=== PATIENT | male | born 1980 | race American Indian/Alaskan Native ===

== ENCOUNTER 2017-03-03 19:08 | Emergency (ER) | payer OTHER ==
[2017-03-03 19:28] VITALS: BP 149/92; PULSE 60; RESP 17; TEMP 98.2; O2SAT 98
--- NOTE | 2017-03-03 19:46 | ED PDOC ---
HPI: General Adult Time Seen by Provider: 03/03/17 19:31 Chief Complaint (Nursing): Medical Clearance Chief Complaint (Provider): itchy skin History Per: Patient History/Exam Limitations: no limitations Onset/Duration Of Symptoms: Other (1 week) Additional Complaint(s): Patient is a 36 y/o male with no significant past medical history presenting to the emergency department for itchy skin ongoing for several weeks. Patient denies any rash, fever or chills. He currently lives in residential. PCP: none Past Medical History Reviewed: Historical Data, Nursing Documentation, Vital Signs Vital Signs: Last Vital Signs Temp 98.2 F 03/03/17 19:25 Pulse 60 03/03/17 19:25 Resp 17 03/03/17 19:25 BP 149/92 H 03/03/17 19:25 Pulse Ox 98 03/03/17 19:53 - Medical History PMH: Depression - Surgical History Surgical History: No Surg Hx - Family History Family History: States: No Known Family Hx - Living Arrangements Living Arrangements: Other (non-domiciled) - Social History Current smoker - smoking cessation education provided: Yes Alcohol: None Drugs: Denies - Home Medications Home Medications: Ambulatory Orders Medication Instructions Recorded DiphenhydrAMINE [Benadryl] 25 mg PO ASDIR #1 packet 03/03/17 - Allergies Allergies/Adverse Reactions: Allergies Allergy/AdvReac Type Severity Reaction Status Date / Time No Known Allergies Allergy Verified 03/03/17 19:28 Review of Systems ROS Statement: Except As Marked, All Systems Reviewed And Found Negative Constitutional: Negative for: Fever, Chills Skin: Positive for: Other (itchy skin). Negative for: Rash Physical Exam - Reviewed Nursing Documentation Reviewed: Yes Vital Signs Reviewed: Yes - Physical Exam Appears: Positive for: Well, Non-toxic, No Acute Distress Head Exam: Positive for: ATRAUMATIC, NORMAL INSPECTION, NORMOCEPHALIC Skin: Positive for: Dry (dry skin patches noted on chest and arms). Negative for: Rash Eye Exam: Positive for: Normal appearance Neck: Positive for: Normal Cardiovascular/Chest: Positive for: Regular Rate, Rhythm Respiratory: Negative for: Accessory Muscle Use, Respiratory Distress Extremity: Positive for: Normal ROM. Negative for: Pedal Edema Neurologic/Psych: Positive for: Alert, Oriented (x3) - ECG O2 Sat by Pulse Oximetry: 98 (RA) Pulse Ox Interpretation: Normal Medical Decision Making Medical Decision Making: Time: 19:48 Initial impression: Patient is a 36 y/o male with itchy skin. Initial plan: Benadryl 25 mg PO Rx benadryl given, patient was referred to clinic. ~ Scribe Attestation: Documented by Ashley Ruiz, acting as a scribe for IAN Small. Provider Scribe Attestation: All medical record entries made by the Scribe were at my direction and personally dictated by me. I have reviewed the chart and agree that the record accurately reflects my personal performance of the history, physical exam, medical decision making, and the department course for this patient. I have also personally directed, reviewed, and agree with the discharge instructions and disposition. Disposition - Clinical Impression Clinical Impression: Pruritus, Dry skin dermatitis - Patient ED Disposition Is Patient to be Admitted: No Counseled Patient/Family Regarding: Diagnosis, Need For Followup - Disposition Referrals: [facility] [Outside] Disposition: Routine/Home Disposition Time: 19:45 Condition: STABLE Additional Instructions: Take rx meds as directed. Follow up with clinic. Prescriptions: DiphenhydrAMINE [Benadryl] 25 mg PO ASDIR #1 packet Instructions: Itchy Skin (ED) Forms: [employer] (Cymro)
== END 2017-03-03 20:05 | disposition home or self-care (01) ==
LOC: H.ER 19:08
DX: L85.3 Xerosis cutis (principal); L29.9 Pruritus, unspecified; F32.9 Major depressive disorder, single episode, unspecified

== ENCOUNTER 2017-03-26 16:33 | Emergency (ER) | payer OTHER ==
[2017-03-26 17:59] VITALS: BMI 20.5
--- NOTE | 2017-03-26 18:04 | ED PDOC ---
Lower Extremity Pain/Injury Time Seen by Provider: 03/26/17 18:01 Chief Complaint (Nursing): Abnormal Skin Integrity Chief Complaint (Provider): bedbug/foot pain History Per: Patient (36 y/o male undomiciled sent by [facility] for evaluation of possible bedbugs. Also notes ongoing foot pain. Notes itching bilateral feet.) Past Medical History Reviewed: Historical Data, Nursing Documentation, Vital Signs - Medical History PMH: Depression Denies: Chronic Kidney Disease - Family History Family History: States: Unknown Family Hx - Home Medications Home Medications: Ambulatory Orders Medication Instructions Recorded DiphenhydrAMINE [Benadryl] 25 mg PO ASDIR #1 packet 03/03/17 Butenafine HCl [Lotrimin Ultra] 0.5 gm TP BID #30 cream..g. 03/26/17 - Allergies Allergies/Adverse Reactions: Allergies Allergy/AdvReac Type Severity Reaction Status Date / Time No Known Allergies Allergy Verified 03/03/17 19:28 Review of Systems ROS Statement: Except As Marked, All Systems Reviewed And Found Negative Physical Exam - Reviewed Nursing Documentation Reviewed: Yes Vital Signs Reviewed: Yes - Physical Exam Appears: Positive for: Well, Non-toxic, No Acute Distress Head Exam: Positive for: ATRAUMATIC, NORMAL INSPECTION, NORMOCEPHALIC Skin: Positive for: Normal Color, Warm, DRY Eye Exam: Positive for: EOMI, Normal appearance, PERRL ENT: Positive for: Normal ENT Inspection Neck: Positive for: Normal, Painless ROM Cardiovascular/Chest: Positive for: Regular Rate, Rhythm Respiratory: Positive for: CNT, Normal Breath Sounds Gastrointestinal/Abdominal: Positive for: Normal Exam, Bowel Sounds, Soft Back: Positive for: Normal Inspection Extremity: Positive for: Normal ROM, Other (scaly/dry skin bilateral feet/ between toes.) Neurologic/Psych: Positive for: Alert, Oriented - Progress ED Course And Treament: Given lotrisone 1% cream here. Patient taken to decon room upon arrival and given new clothes after shower. Disposition - Clinical Impression Clinical Impression: Tinea pedis - Patient ED Disposition Is Patient to be Admitted: No - Disposition Referrals: [facility] [Outside] Disposition: Routine/Home Disposition Time: 18:05 Condition: FAIR Additional Instructions: PATIENT GIVEN SHOWER AND NEW CLOTHES IN EMERGENCY DEPARTMENT Prescriptions: Butenafine HCl [Lotrimin Ultra] 0.5 gm TP BID #30 cream..g. Instructions: Tinea Pedis (ED) Forms: [employer] (Croatian)
[2017-03-26 18:16] VITALS: BP 111/53; PULSE 99; RESP 16; TEMP 98.8; O2SAT 99
== END 2017-03-26 19:17 | disposition home or self-care (01) ==
LOC: H.ER 16:33
DX: B35.3 Tinea pedis (principal); F32.9 Major depressive disorder, single episode, unspecified

== ENCOUNTER 2017-03-27 18:48 | Emergency (ER) | payer OTHER ==
[2017-03-27 18:49] VITALS: BMI 20.5
[2017-03-27 18:59] VITALS: BP 113/64
--- NOTE | 2017-03-27 19:33 | ED PDOC ---
HPI: CCC, URI, Sore Throat Time Seen by Provider: 03/27/17 19:14 Chief Complaint (Nursing): Headache Chief Complaint (Provider): Cough History Per: Patient History/Exam Limitations: no limitations Onset/Duration Of Symptoms: Days (today) Additional Complaint(s): Cough, congestion, runny nose. No dyspnea, weakness, headaches, dizziness. No chest pain. Is homeless and taking no meds. Has chronic leg swelling. No abd pain, nausea, vomit, diarrhea. Past Medical History Reviewed: Nursing Documentation, Vital Signs Vital Signs: Last Vital Signs Temp 102.1 F H 03/27/17 22:47 Pulse 99 H 03/27/17 22:59 Resp 16 03/27/17 22:59 BP 113/64 03/27/17 18:53 Pulse Ox 100 03/27/17 22:59 - Medical History PMH: Depression Denies: Chronic Kidney Disease Other PMH: chronic leg swelling - Surgical History Surgical History: No Surg Hx - Family History Family History: States: Unknown Family Hx - Home Medications Home Medications: Ambulatory Orders Medication Instructions Recorded DiphenhydrAMINE [Benadryl] 25 mg PO ASDIR #1 packet 03/03/17 Butenafine HCl [Lotrimin Ultra] 0.5 gm TP BID #30 cream..g. 03/26/17 - Allergies Allergies/Adverse Reactions: Allergies Allergy/AdvReac Type Severity Reaction Status Date / Time No Known Allergies Allergy Verified 03/03/17 19:28 Review of Systems ROS Statement: Except As Marked, All Systems Reviewed And Found Negative ENT: Positive for: Nose Pain, Nose Discharge, Nose Congestion Respiratory: Positive for: Cough. Negative for: Shortness of Breath, Hemoptysis Gastrointestinal: Negative for: Vomiting Physical Exam - Reviewed Nursing Documentation Reviewed: Yes Vital Signs Reviewed: Yes - Physical Exam Appears: Positive for: Non-toxic, No Acute Distress Head Exam: Positive for: ATRAUMATIC, NORMAL INSPECTION, NORMOCEPHALIC Skin: Positive for: Normal Color, Warm, DRY Eye Exam: Positive for: EOMI, Normal appearance, PERRL ENT: Positive for: Nasal Congestion. Negative for: Pharyngeal Erythema, Tonsillar Exudate Neck: Positive for: Normal, Painless ROM, Supple Cardiovascular/Chest: Positive for: Regular Rate, Rhythm Respiratory: Positive for: CNT, Normal Breath Sounds Gastrointestinal/Abdominal: Positive for: Normal Exam, Bowel Sounds, Soft. Negative for: Tenderness Back: Positive for: Normal Inspection. Negative for: L CVA Tenderness Extremity: Positive for: Normal ROM. Negative for: Tenderness, Pedal Edema Neurologic/Psych: Positive for: Alert, kitchen designer II-XII, Oriented. Negative for: Motor/Sensory Deficits - Laboratory Results Interpretation Of Abn Labs: neg - ECG O2 Sat by Pulse Oximetry: 100 Pulse Ox Interpretation: Normal - Radiology X-Ray: Interpreted by Me, Viewed By Me X-Ray Interpretation: No Acute Disease - Progress ED Course And Treament: 2355: Stable. AAOx3. Tolerated PO. Temp improved. URI. Fu with pcp. Disposition - Clinical Impression Clinical Impression: URI (upper respiratory infection) - Patient ED Disposition Is Patient to be Admitted: No Counseled Patient/Family Regarding: Studies Performed, Diagnosis, Need For Followup - Disposition Referrals: [facility] [Outside] - 03/31/17 Disposition: Routine/Home Disposition Time: 00:16 Condition: STABLE Additional Instructions: Return if not better in 3 days. Instructions: Upper Respiratory Infection (ED) Forms: [employer] (French)
[2017-03-28 05:44] VITALS: PULSE 91; RESP 16; TEMP 99.2; O2SAT 99
--- NOTE | 2017-03-28 10:04 | RAD ---
HISTORY: cough COMPARISON: No prior. FINDINGS: LUNGS: No active pulmonary disease. PLEURA: No significant pleural effusion identified, no pneumothorax apparent. CARDIOVASCULAR: Normal. OSSEOUS STRUCTURES: No significant abnormalities. VISUALIZED UPPER ABDOMEN: Normal. OTHER FINDINGS: None. IMPRESSION: No active disease.
== END 2017-03-28 01:45 | disposition home or self-care (01) ==
LOC: H.ER 18:48
DX: J06.9 Acute upper respiratory infection, unspecified (principal); F32.9 Major depressive disorder, single episode, unspecified; Z59.0 Homelessness

== ENCOUNTER 2017-03-28 16:49 | Emergency (ER) | payer OTHER ==
[2017-03-28 16:50] VITALS: BMI 20.5
[2017-03-28 16:55] VITALS: RESP 20
[2017-03-28] MEDS ORDERED: Sodium Chloride 0.9% 1,000 ML IV STA ×2 (17:29→20:20)
--- NOTE | 2017-03-28 18:01 | ED PDOC ---
HPI: CCC, URI, Sore Throat Time Seen by Provider: 03/28/17 16:57 Chief Complaint (Nursing): Flu-like Symptoms Chief Complaint (Provider): Flu-like Symptoms History Per: Patient History/Exam Limitations: no limitations Onset/Duration Of Symptoms: Days (x2) Current Symptoms Are (Timing): Still Present Additional Complaint(s): 36 year old male who presents to the emergency department with a complaint of fever associated with cough, congestion, headache and generalized bodyache ongoing since yesterday. Denied any chest pain, shortness of breath, bloody cough, nausea, vomiting or diarrhea. Patient was seen in ED yesterday for similar symptoms with negative flu and CXR results. He reported not having money for Tylenol or Motrin as recommended, thus, prompting return to ED. PMD: none provided Past Medical History Reviewed: Historical Data, Nursing Documentation, Vital Signs Vital Signs: Last Vital Signs Temp 100.6 F H 03/28/17 21:34 Pulse 88 03/28/17 22:55 Resp 20 03/28/17 22:55 BP 112/57 L 03/28/17 20:33 Pulse Ox 95 03/28/17 22:55 - Medical History PMH: Depression Denies: Chronic Kidney Disease - Surgical History Surgical History: No Surg Hx - Family History Family History: States: Unknown Family Hx - Social History Current smoker - smoking cessation education provided: No Alcohol: None Drugs: Denies - Home Medications Home Medications: Ambulatory Orders Medication Instructions Recorded DiphenhydrAMINE [Benadryl] 25 mg PO ASDIR #1 packet 03/03/17 Butenafine HCl [Lotrimin Ultra] 0.5 gm TP BID #30 cream..g. 03/26/17 Ibuprofen [Motrin] 600 mg PO Q6 PRN #30 tab 03/28/17 - Allergies Allergies/Adverse Reactions: Allergies Allergy/AdvReac Type Severity Reaction Status Date / Time No Known Allergies Allergy Verified 03/28/17 16:53 Review of Systems ROS Statement: Except As Marked, All Systems Reviewed And Found Negative Constitutional: Positive for: Fever, Other (generalized bodyache) ENT: Positive for: Nose Congestion Cardiovascular: Negative for: Chest Pain Respiratory: Positive for: Cough. Negative for: Shortness of Breath, Hemoptysis Gastrointestinal: Negative for: Nausea, Vomiting, Diarrhea Neurological: Positive for: Headache Physical Exam - Reviewed Nursing Documentation Reviewed: Yes Vital Signs Reviewed: Yes - Physical Exam Appears: Positive for: Well, Non-toxic, No Acute Distress Skin: Positive for: Normal Color. Negative for: Rash Eye Exam: Positive for: Normal appearance, EOMI. Negative for: Periorbital swelling, Periorbital tenderness ENT: Positive for: Normal ENT Inspection, Pharynx Is (within normal limits). Negative for: Pharyngeal Erythema, Tonsillar Exudate Cardiovascular/Chest: Positive for: Regular Rate, Rhythm, Chest Non Tender Respiratory: Positive for: Normal Breath Sounds. Negative for: Decreased Breath Sounds, Respiratory Distress Gastrointestinal/Abdominal: Positive for: Normal Exam, Soft. Negative for: Tenderness Neurologic/Psych: Positive for: Alert, Oriented - Laboratory Results Result Diagrams: 03/28/17 18:20 03/28/17 19:25 - ECG O2 Sat by Pulse Oximetry: 97 (RA) Pulse Ox Interpretation: Normal Medical Decision Making Medical Decision Making: Initial Impression: Flu-like symptoms Initial Plan: * VBG * CMP * CBC * NS 1,00ml IV per 1,000mls/hr * Blood culture * UA 2019 Repeat temp: 102.3 Motrin 800mg PO. CXR: NAD. On re-evaluation, pt. reports feeling much better. Scribe Attestation: Documented by Elenita Person, acting as a scribe for Antonio Howard PA-C. Provider Scribe Attestation: All medical record entries made by the Scribe were at my direction and personally dictated by me. I have reviewed the chart and agree that the record accurately reflects my personal performance of the history, physical exam, medical decision making, and the department course for this patient. I have also personally directed, reviewed, and agree with the discharge instructions and disposition. Disposition - Clinical Impression Clinical Impression: Influenza - Patient ED Disposition Is Patient to be Admitted: No - Disposition Disposition: Routine/Home Disposition Time: 23:20 Condition: STABLE Prescriptions: Ibuprofen [Motrin] 600 mg PO Q6 PRN #30 tab PRN Reason: Fever >100.4 F Instructions: Influenza (ED) Forms: [facility] [employer] (Serbian) Print Language: GREENLANDIC
[2017-03-28 18:38] LABS: BASO # 0.1 K/uL (0.0-0.2); HEMOGLOBIN 11.2 g/dL (12.0-18.0); LYMPH # 0.6 K/uL (1.0-4.3); LYMPH % 8.3 % (20.0-40.0); MEAN CELL VOLUME 88.7 fl (80.0-94.0); MEAN CORPUSCULAR HEMOGLOBIN 28.4 pg (27.0-31.0); MEAN PLATELET VOLUME 8.3 fl (7.2-11.7); MONO # 0.7 K/uL (0.0-0.8); MONO % 9.9 % (0.0-10.0); NEUT # 5.5 K/uL (1.8-7.0); NEUT % 80.8 % (50.0-75.0); NRBC % 0.1 % (0.0-0.0); PLATELET COUNT 171 K/uL (130-400); RBC 3.95 Mil/uL (4.40-5.90); RED CELL DISTRIBUTION WIDTH 15.4 % (11.5-14.5); WHITE BLOOD COUNT 6.8 K/uL (4.8-10.8)
[2017-03-28 18:44] LABS: VENOUS BLOOD GAS BASE EXCESS 3.3 mmol/L (0.0-2.0); VENOUS BLOOD GAS PCO2 41 mmHg (40-60); VENOUS BLOOD GAS PO2 38 mm/Hg (30-55); VENOUS BLOOD PH 7.44 (7.32-7.43)
[2017-03-28 19:48] LABS: ALBUMIN 3.5 g/dL (3.5-5.0); ALT/SGPT 29 U/L (21-72); AST/SGOT 32 U/L (17-59); BLOOD UREA NITROGEN 11 mg/dl (9-20); GFR AFRICAN-AMERICAN > 60; GFR NON-AFRICAN AMERICAN > 60
[2017-03-28 20:04] LABS: BANDS 3 % (0-2); EOSINOPHIL 1 % (0-7); LYMPHOCYTE 7 % (20-50); MONOCYTE 4 % (0-10); NEUTROPHIL 82 % (42-75); PLASMACYTES 1 (0-0); PLATELET ESTIMATE NORMAL (NORMAL); REACTIVE LYMPHOCYTES 2 % (0-0); TOTAL CELLS COUNTED 100
[2017-03-28 20:05] LABS: ANISOCYTOSIS SLIGHT; POIKILOCYTOSIS SLIGHT; ROULEAUX FORMATION SLIGHT; SICKLE CELLS SLIGHT
[2017-03-28 20:06] LABS: HYPOCHROMIC SLIGHT; OVALOCYTES SLIGHT; STOMATOCYTES SLIGHT; TARGET CELLS SLIGHT
[2017-03-28 20:07] LABS: BURR CELLS SLIGHT
[2017-03-28 20:08] LABS: LARGE PLATELETS PRESENT
[2017-03-28 20:34] VITALS: BP 112/57
[2017-03-28 21:43] LABS: SQUAMOUS EPITHIAL 1 /hpf (0-5); URINE BILIRUBIN NEGATIVE (NEGATIVE); URINE BLOOD TRACE (NEGATIVE); URINE CLARITY CLEAR (Clear); URINE COLOR YELLOW (YELLOW); URINE GLUCOSE (UA) NEG (Normal); URINE LEUKOCYTE ESTERASE NEG Leu/uL (Negative); URINE NITRATE NEGATIVE (NEGATIVE); URINE PROTEIN 100 mg/dL (NEGATIVE); URINE UROBILINOGEN 0.2 mg/dL (0.2-1.0)
[2017-03-28 21:44] LABS: GRANULAR CAST 1 /lpf (0-1); URINE AMORPHOUS SEDIMENT FEW /ul (<OCC); URINE BACTERIA RARE (<OCC)
[2017-03-28 21:47] VITALS: TEMP 100.6
[2017-03-28 22:56] VITALS: PULSE 88
[2017-03-29 00:36] VITALS: O2SAT 97
--- NOTE | 2017-03-29 09:58 | RAD ---
PROCEDURE: CHEST RADIOGRAPH, 1 VIEW HISTORY: cough COMPARISON: Comparison chest dated 03/27/2017 FINDINGS: LUNGS: Interstitial markings are slightly increased and coarsened ; rule out sequela of reactive/inflammatory airway disease or viral illness. Mild bibasilar atelectasis. Developing infiltrates could be excluded with followup radiographs. PLEURA: No pneumothorax or pleural fluid seen. CARDIOVASCULAR: Normal. OSSEOUS STRUCTURES: No significant abnormalities. VISUALIZED UPPER ABDOMEN: Normal. OTHER FINDINGS: None. IMPRESSION: Interstitial markings are slightly increased and coarsened ; rule out sequela of reactive/inflammatory airway disease or viral illness. Mild bibasilar atelectasis. Developing infiltrates could be excluded with followup radiographs.
== END 2017-03-28 23:00 | disposition home or self-care (01) ==
LOC: H.ER 16:49
DX: J11.1 Influenza due to unidentified influenza virus with other respiratory manifestations (principal); F32.9 Major depressive disorder, single episode, unspecified
CPT/HCPCS: 71045; 80053; 81003; 82803; 85025; 87040; 96360; 96361; 99284; J7040

== ENCOUNTER 2017-05-02 11:43 | Inpatient (IN) | payer OTHER ==
[2017-05-02] MEDS ORDERED: Sodium Chloride 0.9% 1,000 ML IV STA (12:10)
[2017-05-02] MEDS ORDERED: Piperacillin/Tazobact 3.375 GM in Sodium Chloride 0.9% 100 ML IVPB STA (12:54)
--- NOTE | 2017-05-02 13:04 | ED PDOC ---
HPI: Chest Pain Time Seen by Provider: 05/02/17 12:00 Chief Complaint (Nursing): Chest Pain Chief Complaint (Provider): Chest Pain History Per: Patient History/Exam Limitations: no limitations Onset/Duration Of Symptoms: Days (x3) Current Symptoms Are (Timing): Still Present Additional Complaint(s): 36 year old male with medical history of depression, presents to the emergency department with a complaint of fever associated with chest pain and productive cough with green sputum ongoing for 3 days. He denied any shortness of breath or IV drug use but stated that he currently lives at a homeless long-term. Patient also reported chest pain is worse with sitting up but improved upon lying down. PMD: none provided Past Medical History Reviewed: Historical Data, Nursing Documentation, Vital Signs Vital Signs: Last Vital Signs Temp 102.4 F H 05/02/17 12:58 Pulse 115 H 05/02/17 12:02 Resp 18 05/02/17 12:02 BP 123/76 05/02/17 12:02 Pulse Ox 95 05/02/17 13:18 - Medical History PMH: Depression Denies: Chronic Kidney Disease - Surgical History Surgical History: No Surg Hx - Family History Family History: States: Unknown Family Hx - Social History Current smoker - smoking cessation education provided: Yes Alcohol: None Drugs: Denies - Home Medications Home Medications: Ambulatory Orders Medication Instructions Recorded DiphenhydrAMINE [Benadryl] 25 mg PO ASDIR #1 packet 03/03/17 Butenafine HCl [Lotrimin Ultra] 0.5 gm TP BID #30 cream..g. 03/26/17 Ibuprofen [Motrin] 600 mg PO Q6 PRN #30 tab 03/28/17 - Allergies Allergies/Adverse Reactions: Allergies Allergy/AdvReac Type Severity Reaction Status Date / Time No Known Allergies Allergy Verified 03/28/17 16:53 Review of Systems ROS Statement: Except As Marked, All Systems Reviewed And Found Negative Constitutional: Positive for: Fever Cardiovascular: Positive for: Chest Pain Respiratory: Positive for: Cough, Sputum (green). Negative for: Shortness of Breath Physical Exam - Reviewed Nursing Documentation Reviewed: Yes Vital Signs Reviewed: Yes - Physical Exam Appears: Positive for: No Acute Distress Cardiovascular/Chest: Positive for: Murmur (3/6 on left sternal border), Tachycardia. Negative for: Regular Rate, Rhythm Respiratory: Positive for: Decreased Breath Sounds, Rhonchi (left-sided). Negative for: Normal Breath Sounds, Wheezing, Respiratory Distress Gastrointestinal/Abdominal: Positive for: Normal Exam, Soft. Negative for: Tenderness Extremity: Positive for: Normal ROM (upper/lower), Pedal Edema (2+). Negative for: Calf Tenderness (bilateral) Neurologic/Psych: Positive for: Alert (x3), Oriented. Negative for: Motor/ Sensory Deficits - Laboratory Results Result Diagrams: 05/02/17 13:05 - ECG O2 Sat by Pulse Oximetry: 95 (RA) Pulse Ox Interpretation: Normal Medical Decision Making Medical Decision Making: Initial Impression: Chest pain Initial Plan: * VBG * EKG * CMP * Urine * Urine dipstick * Echo comp w/ m mode/c flow/DOP * CBC * CXR * NS 1,000ml IV per 150mls/hr * Tylenol 650mg PO * Vancomycin inj 250ml IVPB * Zosyn 100ml IVPB * Blood culture * Influenza A B Scribe Attestation: Documented by Elenita Person, acting as a scribe for Hany Brito MD. Provider Scribe Attestation: All medical record entries made by the Scribe were at my direction and personally dictated by me. I have reviewed the chart and agree that the record accurately reflects my personal performance of the history, physical exam, medical decision making, and the department course for this patient. I have also personally directed, reviewed, and agree with the discharge instructions and disposition. Disposition - Clinical Impression Clinical Impression: Pneumonia - Patient ED Disposition Is Patient to be Admitted: Yes - Disposition Disposition Time: 13:21 Condition: GUARDED Forms: [employer] (Romanian) - Pt Status Changed To: Hospital Disposition Of: Inpatient - Admit Certification Admit to Inpatient:: After my assessment, the patient will require hospitalization for at least two midnights. This is because of the severity of symptoms shown, intensity of services needed, and/or the medical risk in this patient being treated as an outpatient. - POA Present On Arrival: None
[2017-05-02 13:11] LABS: BASO # 0.1 K/uL (0.0-0.2); BASO % 0.3 % (0.0-2.0); HEMOGLOBIN 13.4 g/dL (12.0-18.0); LYMPH # 0.9 K/uL (1.0-4.3); LYMPH % 3.3 % (20.0-40.0); MEAN CELL VOLUME 87.9 fl (80.0-94.0); MEAN CORPUSCULAR HEMOGLOBIN 29.1 pg (27.0-31.0); MEAN CORPUSCULAR HGB CONC 33.2 g/dL (33.0-37.0); MEAN PLATELET VOLUME 7.7 fl (7.2-11.7); MONO # 2.5 K/uL (0.0-0.8); MONO % 8.6 % (0.0-10.0); NEUT % 87.8 % (50.0-75.0); PLATELET COUNT 357 K/uL (130-400); RBC 4.59 Mil/uL (4.40-5.90); RED CELL DISTRIBUTION WIDTH 15.1 % (11.5-14.5); WHITE BLOOD COUNT 28.5 K/uL (4.8-10.8)
[2017-05-02 13:26] LABS: ALB/GLOB RATIO 0.9 (1.0-2.1); ALBUMIN 3.6 g/dL (3.5-5.0); ALT/SGPT 25 U/L (21-72); AST/SGOT 24 U/L (17-59); BLOOD UREA NITROGEN 17 mg/dl (9-20); CALCIUM 9.2 mg/dL (8.4-10.2); GFR AFRICAN-AMERICAN > 60; GFR NON-AFRICAN AMERICAN > 60
[2017-05-02 13:38] LABS: VENOUS BLOOD GAS BASE EXCESS 4.5 mmol/L (0.0-2.0); VENOUS BLOOD GAS PCO2 54 mmHg (40-60); VENOUS BLOOD GAS PO2 21 mm/Hg (30-55); VENOUS BLOOD PH 7.37 (7.32-7.43)
[2017-05-02] MEDS ORDERED: Piperacillin/Tazobact 3.375 gm Inj IVPB ONE (13:47)
[2017-05-02 13:57] LABS: ANISOCYTOSIS SLIGHT; BANDS 1 % (0-2); LYMPHOCYTE 7 % (20-50); MONOCYTE 9 % (0-10); NEUTROPHIL 83 % (42-75); PLATELET ESTIMATE NORMAL (NORMAL); TOTAL CELLS COUNTED 100
[2017-05-02] MEDS ORDERED: Permethrin 5% CREAM TOP ONE (14:07)
--- NOTE | 2017-05-02 14:08 | CP.PCM.HP ---
History of Present Illness - History of Present Illness History of Present Illness: 36 yo male with history of Depression came in complaining of fever associated with left sided chest pain and cough productive with green sputum since 3 days ago. Patient uncooperative to further interview and did not want to be bothered because of feeling weak and sick. Present on Admission - Present on Admission Any Indicators Present on Admission: No History of DVT/PE: No History of Uncontrolled Diabetes: No Urinary Catheter: No Decubitus Ulcer Present: No Review of Systems - Review of Systems All systems: reviewed and no additional remarkable complaints except (aside from those mentioned above, 14 point system review were negative by me) Past Patient History - Infectious Disease Hx of Infectious Diseases: None - Past Social History Smoking Status: Heavy Smoker > 10 Cigarettes Daily Alcohol: None Drugs: Denies Home Situation {Lives}: Homeless - CARDIAC Hx Cardiac Disorders: No - PULMONARY Hx Respiratory Disorders: No - NEUROLOGICAL Hx Neurological Disorder: No - HEENT Hx HEENT Problems: No - RENAL Hx Chronic Kidney Disease: No - ENDOCRINE/METABOLIC Hx Endocrine Disorders: No - HEMATOLOGICAL/ONCOLOGICAL Hx Blood Disorders: No - INTEGUMENTARY Hx Dermatological Problems: No - MUSCULOSKELETAL/RHEUMATOLOGICAL Hx Musculoskeletal Disorders: No - GASTROINTESTINAL Hx Gastrointestinal Disorders: No - GENITOURINARY/GYNECOLOGICAL Hx Genitourinary Disorders: No - PSYCHIATRIC Hx Depression: Yes - SURGICAL HISTORY Hx Surgeries: No - ANESTHESIA Hx Anesthesia: No Meds Allergies/Adverse Reactions: Allergies Allergy/AdvReac Type Severity Reaction Status Date / Time No Known Allergies Allergy Verified 03/28/17 16:53 Physical Exam - Constitutional Appears: No Acute Distress - Head Exam Head Exam: ATRAUMATIC - Eye Exam Eye Exam: absent: Scleral icterus - ENT Exam ENT Exam: Mucous Membranes Moist - Neck Exam Neck exam: Negative for: Meningismus - Respiratory Exam Respiratory Exam: Decreased Breath Sounds, Rhonchi (left lung field). absent: Wheezes, Respiratory Distress - Cardiovascular Exam Cardiovascular Exam: Tachycardia, Systolic Murmur (left parasternal border) - GI/Abdominal Exam GI & Abdominal Exam: Soft. absent: Tenderness - Rectal Exam Rectal Exam: Deferred - Extremities Exam Extremities exam: Positive for: calf tenderness, pedal edema (2+ bilateral pedal edema) - Back Exam Back exam: absent: tenderness - Neurological Exam Neurological exam: Alert - Psychiatric Exam Psychiatric exam: Normal Affect - Skin Skin Exam: Dry, Intact Results - Vital Signs Recent Vital Signs: Last Vital Signs Temp 102.4 F H 05/02/17 12:58 Pulse 115 H 05/02/17 12:02 Resp 18 05/02/17 12:02 BP 123/76 05/02/17 12:02 Pulse Ox 95 05/02/17 13:21 - Labs Result Diagrams: 05/02/17 13:05 05/02/17 13:05 Labs: Laboratory Results - last 24 hr 05/02/17 05/02/17 05/02/17 13:05 13:05 13:05 WBC 28.5 H D RBC 4.59 Hgb 13.4 D Hct 40.3 MCV 87.9 MCH 29.1 MCHC 33.2 RDW 15.1 H Plt Count 357 D MPV 7.7 Neut % (Auto) 87.8 H Lymph % (Auto) 3.3 L Tompkins % (Auto) 8.6 Eos % (Auto) 0.0 Baso % (Auto) 0.3 Neut # (Auto) 25.0 H Lymph # (Auto) 0.9 L Tompkins # (Auto) 2.5 H Eos # (Auto) 0.0 Baso # (Auto) 0.1 Neutrophils % (Manual) 83 H Band Neutrophils % 1 Lymphocytes % (Manual) 7 L Monocytes % (Manual) 9 Platelet Estimate Normal Anisocytosis (manual) Slight pO2 VBG pH VBG pCO2 VBG HCO3 VBG Total CO2 VBG O2 Sat (Calc) VBG Base Excess VBG Potassium Glucose Lactate FiO2 Sodium 139 Potassium 4.8 Chloride 97 L Carbon Dioxide 27 Anion Gap 20 BUN 17 Creatinine 1.0 Est GFR ( Amer) > 60 Est GFR (Non-Af Amer) > 60 Random Glucose 101 Calcium 9.2 Total Bilirubin 0.7 AST 24 ALT 25 Alkaline Phosphatase 71 Total Protein 7.8 Albumin 3.6 Globulin 4.2 H Albumin/Globulin Ratio 0.9 L Venous Blood Potassium Influenza Typ A,B (EIA) Negative for flu a/b 05/02/17 13:30 WBC RBC Hgb Hct MCV MCH MCHC RDW Plt Count MPV Neut % (Auto) Lymph % (Auto) Tompkins % (Auto) Eos % (Auto) Baso % (Auto) Neut # (Auto) Lymph # (Auto) Tompkins # (Auto) Eos # (Auto) Baso # (Auto) Neutrophils % (Manual) Band Neutrophils % Lymphocytes % (Manual) Monocytes % (Manual) Platelet Estimate Anisocytosis (manual) pO2 21 L VBG pH 7.37 VBG pCO2 54 VBG HCO3 26.7 VBG Total CO2 32.9 H VBG O2 Sat (Calc) 34.5 L VBG Base Excess 4.5 H VBG Potassium 4.6 Glucose 110 Lactate 1.5 FiO2 21.0 Sodium 134.0 Potassium Chloride 101.0 Carbon Dioxide Anion Gap BUN Creatinine Est GFR ( Amer) Est GFR (Non-Af Amer) Random Glucose Calcium Total Bilirubin AST ALT Alkaline Phosphatase Total Protein Albumin Globulin Albumin/Globulin Ratio Venous Blood Potassium 4.6 Influenza Typ A,B (EIA) Assessment & Plan - Assessment and Plan (Free Text) Assessment: 36 yo male with history of Depression came in complaining of fever associated with left sided chest pain and cough productive with green sputum since 3 days ago. Patient uncooperative to further interview and did not want to be bothered because of feeling weak and sick. 1. Sepsis panculture Zosyn 3.375 gm IV q 6hrs Vanco 1gm q 12hrs Vanco trough before 4th dose IV hydration with NSS 150cc/hr Tylenol 650mg PO q 4hrs prn for fever 2. LLL Pneumonia O2 supplement 2LPM via NC PRN on IV Zosyn and Vanco 3. Pedal Edema venous doppler
--- NOTE | 2017-05-02 14:14 | RAD ---
HISTORY: cough COMPARISON: Frontal chest radiograph 03/28/2017. FINDINGS: LUNGS: Infiltrate the left base is not excluded. None is seen the right chest. PLEURA: A moderate size left pleural effusion is suspected with underlying left by basilar airspace disease not excluded. No pneumothorax bilaterally or right pleural effusion identified. CARDIOVASCULAR: Likely stable but partially obscured by left pleural effusion/infiltrate. OSSEOUS STRUCTURES: No significant abnormalities. VISUALIZED UPPER ABDOMEN: Normal. OTHER FINDINGS: None. IMPRESSION: A moderate left pleural effusions identified with underlying left basilar airspace disease not excluded. Right chest appears clear. No pneumothorax bilaterally.
[2017-05-02] MEDS ORDERED: Sodium Chloride 3% for Inhalation 4 ML VIAL.NEB IH PRN (14:37)
--- NOTE | 2017-05-02 16:10 | US ---
PROCEDURE: Bilateral lower extremity venous duplex Doppler. HISTORY: r/o DVT COMPARISON: None available. TECHNIQUE: Bilateral common femoral, superficial femoral, popliteal and posterior tibial veins were evaluated. Flow was assessed with color Doppler, compressibility, assessment of phasic flow and augmentation response. FINDINGS: COMMON FEMORAL VEIN: Right CFV: Unremarkable. Left CFV: Unremarkable. SUPERFICIAL FEMORAL VEIN: Right SFV: Unremarkable. Left SFV: Unremarkable. POPLITEAL VEIN: Right Popliteal: Unremarkable. Left Popliteal: Unremarkable. POSTERIOR TIBIAL VEIN: Right PTV: Unremarkable. Left PTV: Unremarkable. OTHER FINDINGS: None. IMPRESSION: No evidence of deep venous thrombosis in the right or left lower extremity. .
[2017-05-02 21:31] LABS: URINE BILIRUBIN NEGATIVE (NEGATIVE); URINE BLOOD MODERATE (NEGATIVE); URINE CLARITY SLIGHTY-CLOUDY (Clear); URINE COLOR YELLOW (YELLOW); URINE GLUCOSE (UA) NEG (Normal); URINE LEUKOCYTE ESTERASE NEG Leu/uL (Negative); URINE PROTEIN 100 mg/dL (NEGATIVE)
[2017-05-02 21:35] LABS: SQUAMOUS EPITHIAL 2 /hpf (0-5)
[2017-05-03] MEDS: Piperacillin/Tazobact 3.375 GM in Sodium Chloride 0.9% 100 ML IVPB SCH ×6 (04:48→22:15)
[2017-05-03 07:35] LABS: BASO # 0.1 K/uL (0.0-0.2); BASO % 0.2 % (0.0-2.0); EOS % 0.1 % (0.0-4.0); HEMOGLOBIN 12.4 g/dL (12.0-18.0); LYMPH # 0.6 K/uL (1.0-4.3); LYMPH % 1.9 % (20.0-40.0); MEAN CELL VOLUME 88.1 fl (80.0-94.0); MEAN CORPUSCULAR HEMOGLOBIN 29.2 pg (27.0-31.0); MEAN CORPUSCULAR HGB CONC 33.2 g/dL (33.0-37.0); MEAN PLATELET VOLUME 7.8 fl (7.2-11.7); MONO # 1.7 K/uL (0.0-0.8); MONO % 5.6 % (0.0-10.0); NEUT # 27.3 K/uL (1.8-7.0); NEUT % 92.2 % (50.0-75.0); PLATELET COUNT 363 K/uL (130-400); RBC 4.23 Mil/uL (4.40-5.90); WHITE BLOOD COUNT 29.6 K/uL (4.8-10.8)
[2017-05-03 08:02] LABS: BLOOD UREA NITROGEN 13 mg/dl (9-20); CALCIUM 8.7 mg/dL (8.4-10.2); GFR AFRICAN-AMERICAN > 60; GFR NON-AFRICAN AMERICAN > 60
[2017-05-03] MEDS ORDERED: Pneumococcal 23-Valent Vaccine IM ONE (09:00)
[2017-05-03] MEDS ORDERED: Influenza Vaccine 18yr & older 0.5 ML/45 MCG SYR IM ONE (09:00)
[2017-05-03] MEDS ORDERED: Iodixanol 320 MG/ML 100 ML BOTTLE IV ONE (09:06)
[2017-05-03] MEDS ORDERED: Sodium Chloride 0.9% 100 ML ONE (09:06)
[2017-05-03] MEDS: Pantoprazole 40 mg EC Tab PO SCH (10:26)
--- NOTE | 2017-05-03 12:34 | CT ---
PROCEDURE: CT Chest with contrast (Pulmonary Angiogram) HISTORY: r/o PE , Right pleural effusion COMPARISON: Chest x-ray 05/02/2017 TECHNIQUE: Axial computed tomography images were obtained of the chest in the pulmonary arterial phase of enhancement. Coronal and sagittal reformatted images were created and reviewed. Intravenous contrast dose: 98 cc Omnipaque Radiation dose: Total exam DLP = 316 mGy-cm. This CT exam was performed using one or more of the following dose reduction techniques: Automated exposure control, adjustment of the mA and/or kV according to patient size, and/or use of iterative reconstruction technique. FINDINGS: PULMONARY ARTERIES: Evaluation of portions of the peripheral pulmonary arteries are limited by motion. No appreciable filling defect within the pulmonary arteries is identified to suggest pulmonary embolism. AORTA: No acute findings. No thoracic aortic aneurysm. LUNGS: There is evidence of moderate left lower lobe compressive atelectasis secondary to a large left pleural effusion. Additional mild compressive atelectasis is seen in the left upper lobe. There is some mild haziness in crowding of the residual aerated left lung. Small right pleural effusion and very mild subsegmental atelectasis posteriorly at the right lung base adjacent to the fluid is noted. There may be some mild interlobular thickening identified in the right lung although no other infiltrates are seen. Evaluation of the bronchi reveals evidence of some mild layering debris within the distal posterior trachea but also extending into the left main bronchus. There is moderate narrowing or filling of the proximal left lower lobe bronchus, once again with moderate left lower lobe atelectasis. Milder amount of debris and narrowing of portions of the left upper lobe bronchi is also identified. PLEURAL SPACES: Large left pleural effusion. Small right effusion. No pneumothorax seen. Along the lateral aspect of the inferior pericardium on the left is some induration of the pericardial fat. HEART: Heart is not enlarged. Small amount of pericardial fluid inferiorly is not excluded. There is however evidence of some fluid tracking into portions of the mediastinum. LYMPH NODES: There appear to be some mildly enlarged prevascular lymph nodes. There is also a small amount of tissue seen in the anterior mediastinal region which may reflect some residual thymus or mild thymic hyperplasia but without rounded borders to suggest mass. Small amount of subcarinal adenopathy and small amounts of hilar adenopathy are also suspected. BONES, CHEST WALL: No appreciable chest wall mass is identified. Minimal gynecomastia is identified. No rib fractures are appreciated. No thoracic spine fracture is identified. Sternum is unremarkable. OTHER FINDINGS: Images of the upper abdomen reveal some mild induration of the left anterior upper abdominal fat which may be related to the left pleural effusion. IMPRESSION: No CT scan evidence of pulmonary embolism although exam is limited by motion and some compression of the vessels. Very large left pleural effusion with extension into the sub pulmonic regional on the left. Moderate atelectasis of the left lower lobe with bronchial filling or compression of the left lower lobe bronchus. Milder areas of narrowing and filling of the left upper lobe bronchi. Fluid does not appear to have significant increased density or hemorrhagic products although empyema cannot fully be excluded. Sampling of the fluid may prove helpful for further evaluation. Bronchoscopy is suggested for further evaluation to assess for mass or other filling defect in the left lower lobe bronchi. There appear to be a number of mildly enlarged prevascular lymph nodes and some other areas of mild mediastinal or hilar adenopathy. This is nonspecific but probably reactive and related to the process within the left lung. There is some nonspecific induration of the left anterior pericardial fat. Very small pericardial effusion is not excluded. Very small right effusion with subsegmental atelectasis but no infiltrate. Case was placed into the PA review folder and critical red folder as per department protocol.
--- NOTE | 2017-05-03 12:46 | CP.PCM.PN ---
Subjective - Date & Time of Evaluation Date of Evaluation: 05/03/17 Time of Evaluation: 12:30 - Subjective Subjective: Patient seen and examined bedside. Complains of left hemithorax pain. With sputum production , febrile Tmax 102.2 WBC 29 K No acute issues overnight with flat affect Objective - Vital Signs/Intake and Output Vital Signs (last 24 hours): Temp Pulse Resp BP Pulse Ox 98.5 F 108 H 18 111/73 100 05/03/17 08:33 05/03/17 08:33 05/03/17 08:33 05/03/17 08:33 05/03/17 08:33 - Medications Medications: Current Medications Acetaminophen (Tylenol 325mg Tab) 650 mg PO Q6 PRN PRN Reason: Fever >100.4 F Last Admin: 05/03/17 04:54 Dose: 650 mg Enoxaparin Sodium (Lovenox) 40 mg SC DAILY DERRICK PRN Reason: Protocol Piperacillin Sod/Tazobactam (Sod 3.375 gm/ Sodium Chloride) 100 mls @ 100 mls/ hr IVPB Q6 DERRICK PRN Reason: Protocol Last Admin: 05/03/17 10:27 Dose: 100 mls/hr Vancomycin HCl 1 gm/ Sodium (Chloride) 250 mls @ 166.667 mls/hr IVPB Q12 DERRICK PRN Reason: Protocol Last Admin: 05/03/17 00:03 Dose: 166.667 mls/hr Pantoprazole Sodium (Protonix Ec Tab) 40 mg PO DAILY DERRICK Last Admin: 05/03/17 10:26 Dose: 40 mg - Labs Labs: 05/03/17 05:59 05/03/17 05:59 - Constitutional Appears: Non-toxic, No Acute Distress, Other (flat affect) - Head Exam Head Exam: ATRAUMATIC, NORMAL INSPECTION, NORMOCEPHALIC - Eye Exam Eye Exam: EOMI, Normal appearance, PERRL Pupil Exam: NORMAL ACCOMODATION - ENT Exam ENT Exam: Mucous Membranes Moist, Normal Exam - Neck Exam Neck Exam: Full ROM, Normal Inspection - Respiratory Exam Respiratory Exam: Decreased Breath Sounds (to left hemithorax). absent: Accessory Muscle Use, Rhonchi, Wheezes, Respiratory Distress - Cardiovascular Exam Cardiovascular Exam: REGULAR RHYTHM, RRR, +S1, +S2. absent: JVD - GI/Abdominal Exam GI & Abdominal Exam: Soft, Normal Bowel Sounds. absent: Distended, Guarding, Tenderness, Rebound - Rectal Exam Rectal Exam: Deferred - Extremities Exam Extremities Exam: Full ROM, Normal Capillary Refill, Normal Inspection. absent : Pedal Edema - Back Exam Back Exam: NORMAL INSPECTION - Neurological Exam Neurological Exam: Alert, Awake, CN II-XII Intact, Oriented x3 - Psychiatric Exam Psychiatric exam: Flat Affect - Skin Skin Exam: Dry, Intact, Warm Assessment and Plan - Assessment and Plan (Free Text) Assessment: 36 yo male with history of Depression came in complaining of fever associated with left sided chest pain and cough productive with green sputum since 3 days ago. Patient not a very good historian , with flat affect. Complains of pain. CXR showed left pleural effusion. He was febrile with Tmax 102.2 , WBc 28 K, tachycardic Patient admitted for sepsis secondary to pneumonia and large pleural effusion. 1. Sepsis most likely secondary to CAP Continue vanco and zosyn IV Follow up cultures lidoderm patch to left hemithorax for pain control o2 via NC 2. LLL Pneumonia with large pleural effusion Ct chest orderd today showed large pleural effusion , atelectasis Will continue IV vanco and zosyn Will order IR thoracethesis for fluid analysis pulmonary consuklt with Dr. Parker O2 supplement 2LPM via NC 3. Pedal Edema venous doppler negative for DVT 4.Depression not SI 5. DVt prophylaxis Lovenox
[2017-05-03 12:50] LABS: ANISOCYTOSIS SLIGHT; LYMPHOCYTE 1 % (20-50); MONOCYTE 4 % (0-10); NEUTROPHIL 95 % (42-75); PLATELET ESTIMATE NORMAL (NORMAL); TOTAL CELLS COUNTED 100
[2017-05-03 12:51] LABS: TOXIC GRANULATION PRESENT
[2017-05-03 13:46] VITALS: BMI 20.2
--- NOTE | 2017-05-03 13:54 | CARD ---
APPROVED REPORT EXAM: Two-dimensional and M-mode echocardiogram with Doppler and color Doppler. Other Information Quality : GoodRhythm : Tachycardia INDICATION Murmur Fever 2D DIMENSIONS IVSd0.82 (0.7-1.1cm)LVDd4.10 (3.9-5.9cm) LVOT Diameter1.85 (1.8-2.4cm)PWd0.85 (0.7-1.1cm) IVSs1.13 (0.8-1.2cm)LVDs3.39 (2.5-4.0cm) FS (%) 17.3 %PWs1.36 (0.8-1.2cm) M-Mode DIMENSIONS Left Atrium (MM)3.13 (2.5-4.0cm)IVSd0.84 (0.7-1.1cm) Aortic Root3.28 (2.2-3.7cm)LVDd4.88 (4.0-5.6cm) Aortic Cusp Exc.2.09 (1.5-2.0cm)PWd0.91 (0.7-1.1cm) IVSs1.28 cmFS (%) 28 % LVDs3.50 (2.0-3.8cm)PWs1.38 cm Mitral Valve E/A ratio0.0 TDI E/Lateral E'0.0E/Medial E'0.0 Pulmonary Valve PV Peak [id number]/s LEFT VENTRICLE The left ventricle is normal size. There is normal left ventricular wall thickness. Left ventricle systolic function is normal. The Ejection Fraction is 60-65%. There is normal LV segmental wall motion. The left ventricular diastolic function is normal. RIGHT VENTRICLE The right ventricle is normal size. There is normal right ventricular wall thickness. The right ventricular systolic function is normal. ATRIA The left atrium size is normal. The right atrium size is normal. AORTIC VALVE The aortic valve is normal in structure. No aortic regurgitation is present. There is no aortic valvular stenosis. MITRAL VALVE The mitral valve is normal in structure. There is no evidence of mitral valve prolapse. There is no mitral valve stenosis. There is no mitral valve regurgitation noted. TRICUSPID VALVE The tricuspid valve is normal in structure. There is no tricuspid valve regurgitation noted. PULMONIC VALVE The pulmonary valve is normal in structure. There is no pulmonic valvular regurgitation. GREAT VESSELS The aortic root is normal in size. The IVC is normal in size and collapses >50% with inspiration. PERICARDIAL EFFUSION The pericardium appears normal. A large Lt. pleural fluid collection was detected. <Conclusion> The left ventricle is normal size. There is normal left ventricular wall thickness. There is normal LV segmental wall motion. Left ventricle systolic function is normal. The Ejection Fraction is 60-65%. The left ventricular diastolic function is normal. A large Lt. pleural fluid collection was detected.
--- NOTE | 2017-05-03 15:03 | CARD ---
APPROVED REPORT EKG Measurement Heart [id number] <Conclusion> Sinus tachycardia Otherwise normal ECG
[2017-05-03] MEDS: Dextrose 5%/0.45% NS 1,000 ML IV SCH (17:00)
[2017-05-03] MEDS ORDERED: Dextrose 5%/0.45% NS 1,000 ML IV SCH (17:30)
[2017-05-03] MEDS: Enoxaparin 40 mg Syringe SC SCH (17:34)
[2017-05-03] MEDS: Lidocaine 5% Patch TD SCH (17:42)
[2017-05-03] MEDS ORDERED: Albuterol-Ipratrop 3 mg / 0.5 (3 ml) UD INH PRN (22:58)
[2017-05-04] MEDS: Piperacillin/Tazobact 3.375 GM in Sodium Chloride 0.9% 100 ML IVPB SCH ×3 (04:06→16:54)
[2017-05-04] MEDS: Dextrose 5%/0.45% NS 1,000 ML IV SCH ×3 (04:07→21:46)
[2017-05-04] MEDS: guaiFENesin DM 200 mg-20 mg/10 ml UD PO PRN ×2 (04:07→22:06)
[2017-05-04] MEDS: Lidocaine 5% Patch TD SCH (08:14)
[2017-05-04] MEDS: Pantoprazole 40 mg EC Tab PO SCH (08:16)
[2017-05-04] MEDS: Enoxaparin 40 mg Syringe SC SCH (08:16)
--- NOTE | 2017-05-04 10:52 | CP.PCM.PN ---
Subjective - Date & Time of Evaluation Date of Evaluation: 05/04/17 Time of Evaluation: 11:00 - Subjective Subjective: Patient seen and examined bedside.Lying in bed in NAD. With flat affect. Providing little information . Feeling ok . with episode of cough in Am and sputum production as per patient. Tm,ax 99.7 last 12 hours No acute issues overnight Objective - Vital Signs/Intake and Output Vital Signs (last 24 hours): Temp Pulse Resp BP Pulse Ox 99.4 F 99 H 18 115/73 100 05/04/17 08:00 05/04/17 08:00 05/04/17 08:00 05/04/17 08:00 05/04/17 08:00 Intake and Output: 05/04/17 05/04/17 06:59 18:59 Intake Total 1930 Balance 1930 - Medications Medications: Current Medications Acetaminophen (Tylenol 325mg Tab) 650 mg PO Q6 PRN PRN Reason: Fever >100.4 F Last Admin: 05/03/17 04:54 Dose: 650 mg Albuterol/Ipratropium (Duoneb 3 Mg/0.5 Mg (3 Ml) Ud) 3 ml INH RQ6 PRN PRN Reason: Shortness of Breath Last Admin: 05/03/17 23:30 Dose: 3 ml Enoxaparin Sodium (Lovenox) 40 mg SC DAILY DERRICK PRN Reason: Protocol Last Admin: 05/04/17 08:16 Dose: 40 mg Guaifenesin/Dextromethorphan (Robitussin Dm) 10 ml PO Q6 PRN PRN Reason: Cough Last Admin: 05/04/17 04:07 Dose: 10 ml Piperacillin Sod/Tazobactam (Sod 3.375 gm/ Sodium Chloride) 100 mls @ 100 mls/ hr IVPB Q6 DERRICK PRN Reason: Protocol Last Admin: 05/04/17 04:06 Dose: 100 mls/hr Vancomycin HCl 1 gm/ Sodium (Chloride) 250 mls @ 166.667 mls/hr IVPB Q12 DERRICK PRN Reason: Protocol Last Admin: 05/04/17 08:06 Dose: 166.667 mls/hr Dextrose/Sodium Chloride (Dextrose 5%/0.45% Ns 1000 Ml) 1,000 mls @ 120 mls/hr IV .Q8H20M DERRICK Stop: 05/04/17 17:25 Last Admin: 05/04/17 04:07 Dose: 120 mls/hr Lidocaine (Lidoderm) 1 ea TD DAILY DERRICK Last Admin: 05/04/17 08:14 Dose: 1 ea Pantoprazole Sodium (Protonix Ec Tab) 40 mg PO DAILY DERRICK Last Admin: 05/04/17 08:16 Dose: 40 mg - Labs Labs: 05/03/17 05:59 05/03/17 05:59 - Constitutional Appears: Non-toxic, No Acute Distress - Head Exam Head Exam: ATRAUMATIC, NORMAL INSPECTION, NORMOCEPHALIC - Eye Exam Eye Exam: EOMI, PERRL Pupil Exam: NORMAL ACCOMODATION - ENT Exam ENT Exam: Mucous Membranes Moist, Normal Exam - Neck Exam Neck Exam: Full ROM, Normal Inspection - Respiratory Exam Respiratory Exam: Decreased Breath Sounds (left hemithorax), NORMAL BREATHING PATTERN. absent: Rhonchi, Wheezes - Cardiovascular Exam Cardiovascular Exam: REGULAR RHYTHM, RRR, +S1, +S2. absent: JVD - GI/Abdominal Exam GI & Abdominal Exam: Soft, Normal Bowel Sounds. absent: Distended, Guarding, Tenderness, Rebound - Rectal Exam Rectal Exam: Deferred - Extremities Exam Extremities Exam: Full ROM, Normal Capillary Refill, Normal Inspection. absent : Calf Tenderness, Pedal Edema - Back Exam Back Exam: NORMAL INSPECTION - Neurological Exam Neurological Exam: Alert, Awake, CN II-XII Intact, Oriented x3 - Psychiatric Exam Psychiatric exam: Flat Affect - Skin Skin Exam: Dry, Warm Assessment and Plan - Assessment and Plan (Free Text) Assessment: 36 yo male with history of Depression came in complaining of fever associated with left sided chest pain and cough productive with green sputum since 3 days ago. Patient not a very good historian , with flat affect. Complains of pain. CXR showed left pleural effusion. He was febrile with Tmax 102.2 , WBc 28 K, tachycardic Patient admitted for sepsis secondary to pneumonia and large pleural effusion. Today feeling a little better , Tmax 99.7 with cough nd sputum production .Flat affect 1. Sepsis most likely secondary to CAP Continue vanco and zosyn IV Follow up cultures lidoderm patch to left hemithorax for pain control provided Continue O2 via NC 2. LLL Pneumonia with large pleural effusion Ct chest showed large pleural effusion , atelectasis Will continue IV vanco and zosyn Ordered IR thoracethesis for fluid analysis ( for AM ) pulmonary consult with Dr. Parker O2 supplement 2LPM via [place] 3. Pedal Edema venous doppler negative for DVT 4.Depression not SI, with flat affect will call psych eval 5. DVt prophylaxis Lovenox
[2017-05-04 11:56] LABS: HEMOGLOBIN 12.5 g/dL (12.0-18.0); MEAN CELL VOLUME 87.7 fl (80.0-94.0); MEAN CORPUSCULAR HGB CONC 33.1 g/dL (33.0-37.0); RBC 4.31 Mil/uL (4.40-5.90); RED CELL DISTRIBUTION WIDTH 15.3 % (11.5-14.5); WHITE BLOOD COUNT 31.9 K/uL (4.8-10.8)
[2017-05-04 12:03] LABS: BLOOD UREA NITROGEN 12 mg/dl (9-20); CALCIUM 8.4 mg/dL (8.4-10.2); GFR AFRICAN-AMERICAN > 60; GFR NON-AFRICAN AMERICAN > 60
--- NOTE | 2017-05-04 16:45 | CP.PCM.CON ---
History of Present Illness - History of Present Illness History of Present Illness: This is a 36 yr old male with h/o depression admitted for fever and lt sided chest pain and psych consult called for evaluation of depression as pt is not talking with flat affect and not in treatment.pt minimises his depression and says that he is least concerned about it and more concerned about his meducal condition.pt says that he is overwhelmed with his medical issues and him nit talking muchis due to feeling very sick and fear of having bad pneumonia and not because of depression.pt denies need to go back on antidepressants and wont share info regarding past psychiatric treatment for depression. Review of Systems - Review of Systems All systems: reviewed and no additional remarkable complaints except Past Patient History - Infectious Disease Hx of Infectious Diseases: None - Past Medical History & Family History Past Medical History?: Yes - Past Social History Smoking Status: Light Smoker < 10 Cigarettes Daily - CARDIAC Hx Cardiac Disorders: No - PULMONARY Hx Respiratory Disorders: No - NEUROLOGICAL Hx Neurological Disorder: No - HEENT Hx HEENT Problems: No - RENAL Hx Chronic Kidney Disease: No - ENDOCRINE/METABOLIC Hx Endocrine Disorders: No - HEMATOLOGICAL/ONCOLOGICAL Hx Blood Disorders: No - INTEGUMENTARY Hx Dermatological Problems: No - MUSCULOSKELETAL/RHEUMATOLOGICAL Hx Musculoskeletal Disorders: No Hx Falls: No - GASTROINTESTINAL Hx Gastrointestinal Disorders: No - GENITOURINARY/GYNECOLOGICAL Hx Genitourinary Disorders: No - PSYCHIATRIC Hx Psychophysiologic Disorder: Yes (depression) Hx Substance Use: No - SURGICAL HISTORY Hx Surgeries: No - ANESTHESIA Hx Anesthesia: No Meds Allergies/Adverse Reactions: Allergies Allergy/AdvReac Type Severity Reaction Status Date / Time No Known Allergies Allergy Verified 03/28/17 16:53 - Medications Medications: Current Medications Acetaminophen (Tylenol 325mg Tab) 650 mg PO Q6 PRN PRN Reason: Fever >100.4 F Last Admin: 05/03/17 04:54 Dose: 650 mg Albuterol/Ipratropium (Duoneb 3 Mg/0.5 Mg (3 Ml) Ud) 3 ml INH RQ6 PRN PRN Reason: Shortness of Breath Last Admin: 05/03/17 23:30 Dose: 3 ml Enoxaparin Sodium (Lovenox) 40 mg SC DAILY [facility] PRN Reason: Protocol Last Admin: 05/04/17 08:16 Dose: 40 mg Guaifenesin/Dextromethorphan (Robitussin Dm) 10 ml PO Q6 PRN PRN Reason: Cough Last Admin: 05/04/17 04:07 Dose: 10 ml Piperacillin Sod/Tazobactam (Sod 3.375 gm/ Sodium Chloride) 100 mls @ 100 mls/ hr IVPB Q6 [facility] PRN Reason: Protocol Last Admin: 05/04/17 11:12 Dose: 100 mls/hr Vancomycin HCl 1 gm/ Sodium (Chloride) 250 mls @ 166.667 mls/hr IVPB Q12 [facility] PRN Reason: Protocol Last Admin: 05/04/17 08:06 Dose: 166.667 mls/hr Dextrose/Sodium Chloride (Dextrose 5%/0.45% Ns 1000 Ml) 1,000 mls @ 120 mls/hr IV .Q8H20M [facility] Stop: 05/04/17 17:25 Last Admin: 05/04/17 11:12 Dose: 120 mls/hr Lidocaine (Lidoderm) 1 ea TD DAILY [facility] Last Admin: 05/04/17 08:14 Dose: 1 ea Pantoprazole Sodium (Protonix Ec Tab) 40 mg PO DAILY [facility] Last Admin: 05/04/17 08:16 Dose: 40 mg Physical Exam - Psychiatric Exam Psychiatric exam: Flat Affect, Normal Mood Additional comments: pt is alert ,oriented x3 with intact cignition.pt denies suicidal ideation.mood is reported as anxious about his medical condition.no psychosis.fair judgement and insight. Results - Vital Signs Recent Vital Signs: Last Vital Signs Temp 98.3 F 05/04/17 16:00 Pulse 97 H 05/04/17 16:00 Resp 20 05/04/17 16:00 BP 106/75 05/04/17 16:00 Pulse Ox 96 05/04/17 16:00 - Labs Result Diagrams: 05/06/17 04:20 05/06/17 04:20 Labs: Laboratory Results - last 24 hr 05/04/17 05/04/17 11:19 11:19 WBC 31.9 H RBC 4.31 L Hgb 12.5 Hct 37.8 MCV 87.7 MCH 29.0 MCHC 33.1 RDW 15.3 H Plt Count 435 H Sodium 137 Potassium 4.7 Chloride 100 Carbon Dioxide 29 Anion Gap 13 BUN 12 Creatinine 0.8 Est GFR ( Amer) > 60 Est GFR (Non-Af Amer) > 60 Random Glucose 110 Calcium 8.4 Assessment & Plan - Assessment and Plan (Free Text) Assessment: Adjustment disorder with mixed depressed mood and anxiety h/o depression in past Plan: I offered pt trial of meds for depression but pt is not interested at thus time .pt encouraged to follow up in outpt with a therapist and psychiatrist.pt is competent and is not currently a candidate for inpt psych admission ,outpt follow up recommended.
--- NOTE | 2017-05-04 18:54 | CP.PCM.CON ---
History of Present Illness - History of Present Illness History of Present Illness: Infectious Disease Consultation Note- asked to see this patient at the request of Hospitalist for help with antibiotic management. HPI- Patient is a 36 year old homeless male with pmh of bronchitis who was admitted with c/o pleuritic babar pain and cough which as per patietn ahs been present for past 2-3 days. He denies any fever or chills or sob but states on admission he was found to be febrile. He states once when he was a teenager he had pneumonia but nothing after that. He denies any PMH other than bronchitis. he denies any allergy to any medications. denies any sick contacts or any travel. he states he feels slightly better today compared to admission. Review of Systems - Review of Systems Review of Systems: ROS- denies any fever or chills but was found to have fever on admission, + cough with green phlegm for past 3 days, + pleuritic chest pain for past 2 days, denies any sob now, denies any MELENDREZ, denies any nausea or vomiting, denies any abd. pain, denies any diarrhea, denies any dysurea lives in half-way Past Patient History - Infectious Disease Hx of Infectious Diseases: None - Past Medical History & Family History Past Medical History?: Yes - Past Social History Smoking Status: Light Smoker < 10 Cigarettes Daily Home Situation {Lives}: Homeless - CARDIAC Hx Cardiac Disorders: No - PULMONARY Hx Respiratory Disorders: No - NEUROLOGICAL Hx Neurological Disorder: No - HEENT Hx HEENT Problems: No - RENAL Hx Chronic Kidney Disease: No - ENDOCRINE/METABOLIC Hx Endocrine Disorders: No - HEMATOLOGICAL/ONCOLOGICAL Hx Blood Disorders: No - INTEGUMENTARY Hx Dermatological Problems: No - MUSCULOSKELETAL/RHEUMATOLOGICAL Hx Musculoskeletal Disorders: No Hx Falls: No - GASTROINTESTINAL Hx Gastrointestinal Disorders: No - GENITOURINARY/GYNECOLOGICAL Hx Genitourinary Disorders: No - PSYCHIATRIC Hx Psychophysiologic Disorder: Yes (depression) Hx Substance Use: No - SURGICAL HISTORY Hx Surgeries: No - ANESTHESIA Hx Anesthesia: No Meds Allergies/Adverse Reactions: Allergies Allergy/AdvReac Type Severity Reaction Status Date / Time No Known Allergies Allergy Verified 03/28/17 16:53 - Medications Medications: Current Medications Acetaminophen (Tylenol 325mg Tab) 650 mg PO Q6 PRN PRN Reason: Fever >100.4 F Last Admin: 05/03/17 04:54 Dose: 650 mg Albuterol/Ipratropium (Duoneb 3 Mg/0.5 Mg (3 Ml) Ud) 3 ml INH RQ6 PRN PRN Reason: Shortness of Breath Last Admin: 05/03/17 23:30 Dose: 3 ml Enoxaparin Sodium (Lovenox) 40 mg SC DAILY [facility] PRN Reason: Protocol Last Admin: 05/04/17 08:16 Dose: 40 mg Guaifenesin/Dextromethorphan (Robitussin Dm) 10 ml PO Q6 PRN PRN Reason: Cough Last Admin: 05/04/17 04:07 Dose: 10 ml Piperacillin Sod/Tazobactam (Sod 3.375 gm/ Sodium Chloride) 100 mls @ 100 mls/ hr IVPB Q6 [facility] PRN Reason: Protocol Last Admin: 05/04/17 16:54 Dose: 100 mls/hr Vancomycin HCl 1 gm/ Sodium (Chloride) 250 mls @ 166.667 mls/hr IVPB Q12 [facility] PRN Reason: Protocol Last Admin: 05/04/17 08:06 Dose: 166.667 mls/hr Dextrose/Sodium Chloride (Dextrose 5%/0.45% Ns 1000 Ml) 1,000 mls @ 120 mls/hr IV .Q8H20M [facility] Stop: 05/05/17 18:06 Lidocaine (Lidoderm) 1 ea TD DAILY [facility] Last Admin: 05/04/17 08:14 Dose: 1 ea Pantoprazole Sodium (Protonix Ec Tab) 40 mg PO DAILY [facility] Last Admin: 05/04/17 08:16 Dose: 40 mg Physical Exam - Constitutional Appears: No Acute Distress - Head Exam Head Exam: ATRAUMATIC - Eye Exam Eye Exam: EOMI, PERRL - ENT Exam ENT Exam: Normal Oropharynx - Neck Exam Neck exam: Positive for: Full Rom - Respiratory Exam Respiratory Exam: NORMAL BREATHING PATTERN Additional comments: decreased breath sounds at left base and coarse breath sounds on right lung no wheezing - Cardiovascular Exam Cardiovascular Exam: RRR, +S1, +S2 - GI/Abdominal Exam GI & Abdominal Exam: Normal Bowel Sounds, Soft Additional comments: NT, ND - Extremities Exam Extremities exam: Positive for: normal inspection - Neurological Exam Neurological exam: Alert, Oriented x3 Results - Vital Signs Recent Vital Signs: Last Vital Signs Temp 98.3 F 05/04/17 16:00 Pulse 97 H 05/04/17 16:00 Resp 20 05/04/17 16:00 BP 106/75 05/04/17 16:00 Pulse Ox 96 05/04/17 16:00 - Labs Result Diagrams: 05/05/17 05:55 05/05/17 05:55 Labs: Laboratory Results - last 24 hr 05/04/17 05/04/17 11:19 11:19 WBC 31.9 H RBC 4.31 L Hgb 12.5 Hct 37.8 MCV 87.7 MCH 29.0 MCHC 33.1 RDW 15.3 H Plt Count 435 H Sodium 137 Potassium 4.7 Chloride 100 Carbon Dioxide 29 Anion Gap 13 BUN 12 Creatinine 0.8 Est GFR ( Amer) > 60 Est GFR (Non-Af Amer) > 60 Random Glucose 110 Calcium 8.4 Microbiology 05/04/17 16:50 Sputum Gram Stain - Final 05/02/17 13:15 Blood-Venous Blood Culture - Preliminary NO GROWTH AFTER 48 HOURS 05/02/17 13:05 Blood-Venous Blood Culture - Preliminary NO GROWTH AFTER 48 HOURS Accession No. : [id number] Patient Name / ID : VIOLETTE GREWAL / [id number] Exam Date : 05/02/2017 12:28:56 ( Approved ) Study Comment : Sex / Age : M / 36Y Creator : Michael Mccauely MD Dictator : Michael Mccauley MD Business Banking Sales Assistant : Collection Agent : Michael Mccauley MD Approver2 : Report Date : 05/02/2017 14:13:06 My Comment : HISTORY: cough COMPARISON: Frontal chest radiograph 03/28/2017. FINDINGS: LUNGS: Infiltrate the left base is not excluded. None is seen the right chest. PLEURA: A moderate size left pleural effusion is suspected with underlying left by basilar airspace disease not excluded. No pneumothorax bilaterally or right pleural effusion identified. CARDIOVASCULAR: Likely stable but partially obscured by left pleural effusion/infiltrate. OSSEOUS STRUCTURES: No significant abnormalities. VISUALIZED UPPER ABDOMEN: Normal. OTHER FINDINGS: None. IMPRESSION: A moderate left pleural effusions identified with underlying left basilar airspace disease not excluded. Right chest appears clear. No pneumothorax bilaterally. Assessment & Plan (1) Pneumonia Status: Acute (2) Sepsis Status: Acute (3) Leukocytosis Status: Acute - Assessment and Plan (Free Text) Assessment: A/P- 36 year old male from half[place]way admitetd with cough and pleuritic chest pain and fever found to have Left pleural effusion and pneumonia. afebrile past 2 days. high leukocytosis. blood cx- neg x 2 sputum cx- pending large left pleural effusion on chest CT. HIV _ negative Influenza- negative plan- d/c zosyn. start IV meropenem for broader coverage 1 gram IV q8 hours. continue with IV vancomycin. keep trough <15. advise zithromax to cover for atypicals. check urine legionella AG. check mycoplasma serology. check quantiferon Gold. awaiting left pleural effusion thoracenthesis for further evaluation and treatment. send pleural fluid for cell count, gram stain and cx, AFB, fungal and cytology. All above d/w patient and he verbalizes full understanding of all above.
--- NOTE | 2017-05-04 22:22 | CP.PCM.CON ---
History of Present Illness - History of Present Illness History of Present Illness: Called to see patient admitted for Chest pain and Sob. Found to have mod/large L pleural effusion, and possible Pna. 1 PPD smoker for 20 years. No etoh. fam hx: NC. NKDA, VSS PE: significan for Left sided dulness upto 2/3 up from diaphrabm a/p Mod/Large Pleural Effusion / CAP/SEpsis. Cont O2 supplementation fro O2 Sat > 90%. Cont IV Abx. Monitor WBC #, Temp curve, and pancultures. IR to drain effusion via CT guided proceudre. Send for the following: cytology PH Cell count Chemistry (LDH, Albumin, T. Protein, Creatinine.) Micro studies (AFB, Fungal, Gram Stain C & S.) LISSY, C-ANCA, P-ANCA. PUD and DVT prophylaxis. Thank you for this consult. Will f/u. Past Patient History - Infectious Disease Hx of Infectious Diseases: None - Past Medical History & Family History Past Medical History?: Yes - Past Social History Smoking Status: Light Smoker < 10 Cigarettes Daily - CARDIAC Hx Cardiac Disorders: No - PULMONARY Hx Respiratory Disorders: No - NEUROLOGICAL Hx Neurological Disorder: No - HEENT Hx HEENT Problems: No - RENAL Hx Chronic Kidney Disease: No - ENDOCRINE/METABOLIC Hx Endocrine Disorders: No - HEMATOLOGICAL/ONCOLOGICAL Hx Blood Disorders: No - INTEGUMENTARY Hx Dermatological Problems: No - MUSCULOSKELETAL/RHEUMATOLOGICAL Hx Musculoskeletal Disorders: No Hx Falls: No - GASTROINTESTINAL Hx Gastrointestinal Disorders: No - GENITOURINARY/GYNECOLOGICAL Hx Genitourinary Disorders: No - PSYCHIATRIC Hx Psychophysiologic Disorder: Yes (depression) Hx Substance Use: No - SURGICAL HISTORY Hx Surgeries: No - ANESTHESIA Hx Anesthesia: No Meds Allergies/Adverse Reactions: Allergies Allergy/AdvReac Type Severity Reaction Status Date / Time No Known Allergies Allergy Verified 03/28/17 16:53 - Medications Medications: Current Medications Acetaminophen (Tylenol 325mg Tab) 650 mg PO Q6 PRN PRN Reason: Fever >100.4 F Last Admin: 05/03/17 04:54 Dose: 650 mg Acetaminophen (Tylenol 325mg Tab) 650 mg PO Q6 PRN PRN Reason: Pain, Mild (1-3) Last Admin: 05/04/17 22:05 Dose: 650 mg Albuterol/Ipratropium (Duoneb 3 Mg/0.5 Mg (3 Ml) Ud) 3 ml INH RQ6 PRN PRN Reason: Shortness of Breath Last Admin: 05/03/17 23:30 Dose: 3 ml Enoxaparin Sodium (Lovenox) 40 mg SC DAILY [facility] PRN Reason: Protocol Last Admin: 05/04/17 08:16 Dose: 40 mg Guaifenesin/Dextromethorphan (Robitussin Dm) 10 ml PO Q6 PRN PRN Reason: Cough Last Admin: 05/04/17 22:06 Dose: 10 ml Vancomycin HCl 1 gm/ Sodium (Chloride) 250 mls @ 166.667 mls/hr IVPB Q12 [facility] PRN Reason: Protocol Last Admin: 05/04/17 21:46 Dose: 166.667 mls/hr Dextrose/Sodium Chloride (Dextrose 5%/0.45% Ns 1000 Ml) 1,000 mls @ 120 mls/hr IV .Q8H20M [facility] Stop: 05/05/17 18:06 Last Admin: 05/04/17 21:46 Dose: 120 mls/hr Meropenem 1 gm/ Sodium (Chloride) 100 mls @ 100 mls/hr IVPB Q8 [facility] PRN Reason: Protocol Lidocaine (Lidoderm) 1 ea TD DAILY [facility] Last Admin: 05/04/17 08:14 Dose: 1 ea Pantoprazole Sodium (Protonix Ec Tab) 40 mg PO DAILY [facility] Last Admin: 05/04/17 08:16 Dose: 40 mg Results - Vital Signs Recent Vital Signs: Last Vital Signs Temp 99.7 F H 05/04/17 20:00 Pulse 97 H 05/04/17 20:00 Resp 18 05/04/17 20:00 BP 110/73 05/04/17 20:00 Pulse Ox 100 05/04/17 20:00 - Labs Result Diagrams: 05/04/17 11:19 05/04/17 11:19 Labs: Laboratory Results - last 24 hr 05/04/17 05/04/17 11:19 11:19 WBC 31.9 H RBC 4.31 L Hgb 12.5 Hct 37.8 MCV 87.7 MCH 29.0 MCHC 33.1 RDW 15.3 H Plt Count 435 H Sodium 137 Potassium 4.7 Chloride 100 Carbon Dioxide 29 Anion Gap 13 BUN 12 Creatinine 0.8 Est GFR ( Amer) > 60 Est GFR (Non-Af Amer) > 60 Random Glucose 110 Calcium 8.4
[2017-05-05] MEDS: Meropenem 1 GM in Sodium Chloride 0.9% 100 ML IVPB SCH ×3 (00:54→16:32)
[2017-05-05] MEDS: Dextrose 5%/0.45% NS 1,000 ML IV SCH ×2 (03:00→16:31)
[2017-05-05 06:11] LABS: BASO # 0.1 K/uL (0.0-0.2); BASO % 0.4 % (0.0-2.0); EOS % 0.2 % (0.0-4.0); HEMOGLOBIN 11.7 g/dL (12.0-18.0); LYMPH # 0.8 K/uL (1.0-4.3); LYMPH % 3.3 % (20.0-40.0); MEAN CELL VOLUME 88.3 fl (80.0-94.0); MEAN CORPUSCULAR HEMOGLOBIN 29.3 pg (27.0-31.0); MEAN CORPUSCULAR HGB CONC 33.2 g/dL (33.0-37.0); MEAN PLATELET VOLUME 7.4 fl (7.2-11.7); MONO # 1.5 K/uL (0.0-0.8); MONO % 6.1 % (0.0-10.0); NEUT # 22.7 K/uL (1.8-7.0); PLATELET COUNT 436 K/uL (130-400); RED CELL DISTRIBUTION WIDTH 15.3 % (11.5-14.5); WHITE BLOOD COUNT 25.2 K/uL (4.8-10.8)
[2017-05-05 06:14] LABS: BLOOD UREA NITROGEN 10 mg/dl (9-20); CALCIUM 8.5 mg/dL (8.4-10.2); GFR AFRICAN-AMERICAN > 60; GFR NON-AFRICAN AMERICAN > 60
--- NOTE | 2017-05-05 07:35 | CP.PCM.PN ---
Subjective - Date & Time of Evaluation Date of Evaluation: 05/05/17 Time of Evaluation: 09:30 - Subjective Subjective: Patient seen and examined bedside. With flat affect. Lying in bed in NAD .hemodynamically stable, afebrile last 12 hours WBc trending down from 31 K -- 25 K With minimal cough Feels better for Thoracenthesis by IR today Objective - Vital Signs/Intake and Output Vital Signs (last 24 hours): Temp Pulse Resp BP Pulse Ox 98.0 F 95 H 16 109/75 99 05/05/17 05:44 05/05/17 05:44 05/05/17 05:44 05/05/17 05:44 05/05/17 05:44 - Medications Medications: Current Medications Acetaminophen (Tylenol 325mg Tab) 650 mg PO Q6 PRN PRN Reason: Fever >100.4 F Last Admin: 05/03/17 04:54 Dose: 650 mg Acetaminophen (Tylenol 325mg Tab) 650 mg PO Q6 PRN PRN Reason: Pain, Mild (1-3) Last Admin: 05/04/17 22:05 Dose: 650 mg Albuterol/Ipratropium (Duoneb 3 Mg/0.5 Mg (3 Ml) Ud) 3 ml INH RQ6 PRN PRN Reason: Shortness of Breath Last Admin: 05/03/17 23:30 Dose: 3 ml Enoxaparin Sodium (Lovenox) 40 mg SC DAILY [facility] PRN Reason: Protocol Last Admin: 05/04/17 08:16 Dose: 40 mg Guaifenesin/Dextromethorphan (Robitussin Dm) 10 ml PO Q6 PRN PRN Reason: Cough Last Admin: 05/04/17 22:06 Dose: 10 ml Vancomycin HCl 1 gm/ Sodium (Chloride) 250 mls @ 166.667 mls/hr IVPB Q12 [facility] PRN Reason: Protocol Last Admin: 05/04/17 21:46 Dose: 166.667 mls/hr Dextrose/Sodium Chloride (Dextrose 5%/0.45% Ns 1000 Ml) 1,000 mls @ 120 mls/hr IV .Q8H20M [facility] Stop: 05/05/17 18:06 Last Admin: 05/05/17 03:00 Dose: 120 mls/hr Meropenem 1 gm/ Sodium (Chloride) 100 mls @ 100 mls/hr IVPB Q8 [facility] PRN Reason: Protocol Last Admin: 05/05/17 00:54 Dose: 100 mls/hr Lidocaine (Lidoderm) 1 ea TD DAILY [facility] Last Admin: 05/04/17 08:14 Dose: 1 ea Pantoprazole Sodium (Protonix Ec Tab) 40 mg PO DAILY [facility] Last Admin: 05/04/17 08:16 Dose: 40 mg - Labs Labs: 05/05/17 05:55 05/05/17 05:55 - Constitutional Appears: Non-toxic, No Acute Distress - Head Exam Head Exam: ATRAUMATIC, NORMAL INSPECTION, NORMOCEPHALIC - Eye Exam Eye Exam: EOMI, Normal appearance, PERRL Pupil Exam: NORMAL ACCOMODATION - ENT Exam ENT Exam: Mucous Membranes Moist, Normal Exam - Neck Exam Neck Exam: Full ROM, Normal Inspection - Respiratory Exam Respiratory Exam: Decreased Breath Sounds (left hemithorax), NORMAL BREATHING PATTERN. absent: Accessory Muscle Use, Rhonchi, Wheezes, Respiratory Distress - Cardiovascular Exam Cardiovascular Exam: REGULAR RHYTHM, RRR, +S1, +S2. absent: JVD - GI/Abdominal Exam GI & Abdominal Exam: Soft, Normal Bowel Sounds. absent: Distended, Guarding, Tenderness, Rebound - Rectal Exam Rectal Exam: Deferred - Extremities Exam Extremities Exam: Full ROM, Normal Capillary Refill, Normal Inspection. absent : Calf Tenderness, Pedal Edema - Back Exam Back Exam: NORMAL INSPECTION - Neurological Exam Neurological Exam: Alert, Awake, CN II-XII Intact, Oriented x3 Additional comments: flat affect - Psychiatric Exam Psychiatric exam: Flat Affect - Skin Skin Exam: Dry, Warm Assessment and Plan - Assessment and Plan (Free Text) Assessment: 36 yo male with history of Depression came in complaining of fever associated with left sided chest pain and cough productive with green sputum since 3 days ago. Patient not a very good historian , with flat affect. Complains of pain. CXR showed left pleural effusion. He was febrile with Tmax 102.2 , WBc 28 K, tachycardic Patient admitted for sepsis secondary to pneumonia and large pleural effusion. He was started initially on Vanco and Zosyn IV . his WBC started trending up despite broad spectrum antibiotics. Pulmonary and ID consulted . Antibiotics changed to Meropenem and Vancomycin on 05/04. Today feeling a little better , afebrile last 12 hours and WBC trending down from 31 K- 25 k. Cultures with no growth so far Went for left thoracenthesis today by IR 1. Sepsis most likely secondary to CAP Continue vanco and zosyn IV Cultures with no growth so far lidoderm patch placed to left hemithorax for pain control Continue O2 via NC s/p left thoracenthesis. Fluid sent for analysis. Will follow up cultures Continue Meropenem and Vancomycin IV 2. LLL Pneumonia with large pleural effusion Ct chest showed large pleural effusion , atelectasis On vanco and Zosyn IV since admission . ID consulted since WBC continued to trend up to 31 K . Zosyn xchanged to meropenem IV S/p thporacenthesis today with removal of 60 ml fluid Follow up fluid analysis, and cultures discussed with Dr. Lazaro. Patient will need chest tube placement to left hemithorax since fluid collection seems to be loculated pulmonary consult with Dr. Parker and Id consult with Dr. Cisneros appreciated Will keep NPO past midnight and hold lovenox for chest tube placement O2 supplement 2LPM via NC 3. Pedal Edema- resolved venous doppler negative for DVT 4.Depression not SI, with flat affect psych consuklted patient refuses medical management 5. Lice infestation decontaminated in ER no isolation or further tretamnet needed 6. DVt prophylaxis Lovenox
[2017-05-05] MEDS: Pantoprazole 40 mg EC Tab PO SCH (09:56)
[2017-05-05] MEDS: Lidocaine 5% Patch TD SCH (09:57)
[2017-05-05 10:23] LABS: BASOPHIL 1 % (0-2); LYMPHOCYTE 3 % (20-50); MONOCYTE 5 % (0-10); NEUTROPHIL 91 % (42-75); PLATELET ESTIMATE SLIGHTLY INCREASED (NORMAL); TOTAL CELLS COUNTED 100
[2017-05-05 10:24] LABS: ANISOCYTOSIS SLIGHT; HYPOCHROMIC SLIGHT
[2017-05-05 10:25] LABS: OVALOCYTES SLIGHT; SCHISTOCYTES SLIGHT; TEARDROP CELLS SLIGHT; TOXIC GRANULATION PRESENT
[2017-05-05 12:27] LABS: INR 1.4 (0.9-1.2); PROTHROMBIN TIME 15.3 Seconds (9.8-13.1)
[2017-05-05] MEDS ORDERED: Lidocaine 1% Inj (20ml) ONE (14:10)
--- NOTE | 2017-05-05 14:32 | PCM.SURG1 ---
Surgeon's Initial Post Op Note - Surgeon's Notes Surgeon: Michael Lazaro MD Manager Alliance: NONE Type of Anesthesia: Local Pre-Operative Diagnosis: Left pleural effusion Operative Findings: US showed complex left pleural effusion with septations. Post-Operative Diagnosis: Left pleural effusion Operation Performed: US guided thoracentesis Specimen/Specimens Removed: 60 cc of slight cloudy straw colored fluid Estimated Blood Loss: EBL {In ML}: 1 Blood Products Given: N/A Drains Used: No Drains Post-Op Condition: Fair Date of Surgery/Procedure: 05/05/17 Time of Surgery/Procedure: 14:30
[2017-05-05 17:49] LABS: BODY FLUID TYPE PLEURAL
[2017-05-05 17:58] LABS: BF GROSS APPEARANCE CLOUDY (CLEAR)
[2017-05-05 18:27] LABS: BODY FLUID MONO/MACROPHAGE 0 % (0-0); BODY FLUID TOTAL COUNT 100 (0-0)
[2017-05-06] MEDS: Meropenem 1 GM in Sodium Chloride 0.9% 100 ML IVPB SCH ×3 (00:29→17:16)
[2017-05-06 00:56] LABS: TB ANTIGEN MINUS NIL <0.00 IU/mL
[2017-05-06 05:49] LABS: BASO # 0.1 K/uL (0.0-0.2); BASO % 0.4 % (0.0-2.0); EOS # 0.1 K/uL (0.0-0.7); EOS % 0.3 % (0.0-4.0); HEMOGLOBIN 11.5 g/dL (12.0-18.0); LYMPH # 1.1 K/uL (1.0-4.3); LYMPH % 4.8 % (20.0-40.0); MEAN CELL VOLUME 88.1 fl (80.0-94.0); MEAN CORPUSCULAR HEMOGLOBIN 29.1 pg (27.0-31.0); MEAN PLATELET VOLUME 7.2 fl (7.2-11.7); MONO # 1.4 K/uL (0.0-0.8); MONO % 6.2 % (0.0-10.0); NEUT # 19.6 K/uL (1.8-7.0); NEUT % 88.3 % (50.0-75.0); RBC 3.95 Mil/uL (4.40-5.90); RED CELL DISTRIBUTION WIDTH 15.3 % (11.5-14.5); WHITE BLOOD COUNT 22.2 K/uL (4.8-10.8)
[2017-05-06 06:00] LABS: BLOOD UREA NITROGEN 9 mg/dl (9-20); CALCIUM 8.6 mg/dL (8.4-10.2); GFR AFRICAN-AMERICAN > 60; GFR NON-AFRICAN AMERICAN > 60
[2017-05-06] MEDS: Pantoprazole 40 mg EC Tab PO SCH (08:39)
[2017-05-06] MEDS: Lidocaine 5% Patch TD SCH (08:41)
--- NOTE | 2017-05-06 09:31 | CP.PCM.PN ---
Subjective - Date & Time of Evaluation Date of Evaluation: 05/06/17 Time of Evaluation: 09:00 - Subjective Subjective: No fevr still with leukocytosis to 22k denies CP no SOB + cough with purulent sputum no abd pain Pt refused Chest tube placement despite explanation of benefits . Discussed possibility of empyema , risk for worsening infection, sepsis even - pt adamantly refused. Objective - Vital Signs/Intake and Output Vital Signs (last 24 hours): Temp Pulse Resp BP Pulse Ox 98.9 F 87 18 105/70 96 05/06/17 07:55 05/06/17 07:55 05/06/17 07:55 05/06/17 07:55 05/06/17 07:55 - Medications Medications: Current Medications Acetaminophen (Tylenol 325mg Tab) 650 mg PO Q6 PRN PRN Reason: Fever >100.4 F Last Admin: 05/03/17 04:54 Dose: 650 mg Acetaminophen (Tylenol 325mg Tab) 650 mg PO Q6 PRN PRN Reason: Pain, Mild (1-3) Last Admin: 05/04/17 22:05 Dose: 650 mg Albuterol/Ipratropium (Duoneb 3 Mg/0.5 Mg (3 Ml) Ud) 3 ml INH RQ6 PRN PRN Reason: Shortness of Breath Last Admin: 05/03/17 23:30 Dose: 3 ml Azithromycin (Zithromax) 500 mg PO DAILY DERRICK PRN Reason: Protocol Last Admin: 05/06/17 08:39 Dose: Not Given Enoxaparin Sodium (Lovenox) 40 mg SC DAILY DERRICK PRN Reason: Protocol Last Admin: 05/04/17 08:16 Dose: 40 mg Guaifenesin/Dextromethorphan (Robitussin Dm) 10 ml PO Q6 PRN PRN Reason: Cough Last Admin: 05/04/17 22:06 Dose: 10 ml Vancomycin HCl 1 gm/ Sodium (Chloride) 250 mls @ 166.667 mls/hr IVPB Q12 DERRICK PRN Reason: Protocol Last Admin: 05/06/17 08:39 Dose: 166.667 mls/hr Meropenem 1 gm/ Sodium (Chloride) 100 mls @ 100 mls/hr IVPB Q8 DERRICK PRN Reason: Protocol Last Admin: 05/06/17 08:33 Dose: 100 mls/hr Lidocaine (Lidoderm) 1 ea TD DAILY DERRICK Last Admin: 05/06/17 08:41 Dose: 1 ea Pantoprazole Sodium (Protonix Ec Tab) 40 mg PO DAILY DERRICK Last Admin: 05/06/17 08:39 Dose: Not Given - Labs Labs: 05/06/17 04:20 05/06/17 04:20 PT 15.3 Seconds (9.8-13.1) H 05/05/17 11:45 INR 1.4 (0.9-1.2) H 05/05/17 11:45 - Constitutional Appears: No Acute Distress, Unkempt - Head Exam Head Exam: NORMAL INSPECTION, NORMOCEPHALIC - Eye Exam Eye Exam: EOMI, Normal appearance, PERRL Pupil Exam: NORMAL ACCOMODATION - ENT Exam ENT Exam: Mucous Membranes Moist, Normal External Ear Exam - Neck Exam Neck Exam: Full ROM. absent: Meningismus - Respiratory Exam Respiratory Exam: Decreased Breath Sounds, Rales, Rhonchi, NORMAL BREATHING PATTERN. absent: Respiratory Distress - Cardiovascular Exam Cardiovascular Exam: REGULAR RHYTHM, +S1, +S2 - GI/Abdominal Exam GI & Abdominal Exam: Soft, Normal Bowel Sounds. absent: Tenderness - Extremities Exam Extremities Exam: Full ROM, Normal Capillary Refill. absent: Calf Tenderness, Pedal Edema - Back Exam Back Exam: Full ROM. absent: CVA tenderness (L), CVA tenderness (R), vertebral tenderness - Neurological Exam Neurological Exam: Alert, Awake, CN II-XII Intact, Oriented x3 Neuro motor strength exam: Left Upper Extremity: 5, Right Upper Extremity: 5, Left Lower Extremity: 5, Right Lower Extremity: 5 - Psychiatric Exam Psychiatric exam: Flat Affect - Skin Skin Exam: Dry, Normal Color, Warm Assessment and Plan - Assessment and Plan (Free Text) Assessment: 36 yo male with history of Depression came in complaining of fever associated with left sided chest pain and cough productive with green sputumx 3 days ago. Patient not a very good historian , with flat affect. Complains of pain. CXR showed left pleural effusion. He was febrile with Tmax 102.2 , WBc 28 K, tachycardic Patient admitted for sepsis secondary to pneumonia and large pleural effusion. He was started initially on Vanco and Zosyn IV . his WBC started trending up despite broad spectrum antibiotics. Pulmonary and ID consulted . Antibiotics changed to Meropenem and Vancomycin on 05/04. Today feels better , afebrile, WBC trending down from 31 K- 22 k. Cultures with no growth so far Went for left thoracentesis by IR on 05/05 Refused Chest Tube Placement. 1. Sepsis sec to Pneumonia likely Bacterial Cultures with no growth so far lidoderm patch placed to left hemithorax for pain control Continue O2 via NC s/p left thoracentesis Continue Meropenem and Vancomycin IV 2. LLL Pneumonia with large pleural effusion Ct chest showed large pleural effusion , atelectasis On vanco and Zosyn IV since admission . ID consulted since WBC continued to trend up to 31 K . Zosyn changed to meropenem IV S/p thoracenthesis with removal of 60 ml fluid 05/05 Follow up fluid analysis, and cultures Per Dr. Lazaro, Patient will need chest tube placement to left hemithorax since fluid collection seems to be loculated Pt refused Chest tube placement despite discussion of poss risks and benefits Pulmonary consulted Dr. Parker O2 supplement 2LPM via NC 3. Pedal Edema- resolved venous doppler negative for DVT 4.Depression Psych consulted patient refuses medical management 5. Lice infestation decontaminated in ER received Permethrin 6. DVt prophylaxis Lovenox
--- NOTE | 2017-05-06 14:06 | US ---
PROCEDURE: Date of procedure: 05/05/2017 Procedure: 1. Ultrasound-guided left thoracentesis, CPT 10948 Medications: 6cc 1% Lidocaine HISTORY: Left pleural effusion, shortness of breath TECHNIQUE: Following informed consent ,the Patients' left chest was marked. Procedure time-out was called, and the patient was placed in the sitting position and limited ultrasound showed complex cystic lesion with septations. The patient's left back was prepped and draped in the usual sterile fashion. After the skin was anesthetized with lidocaine, a drainage catheter was advanced under ultrasound guidance into the pleural space. Ultrasound-guided thoracentesis was performed. A total of 60 cubic centimeters of slightly cloudy straw-colored fluid removed without complication. A Xeroform dressing was applied. IMPRESSION: Ultrasound guided left thoracentesis. There were no immediate complications. Given complex appearance of pleural fluid, a chest tube is recommended.
[2017-05-06] MEDS: Enoxaparin 40 mg Syringe SC SCH (18:40)
[2017-05-07] MEDS: Meropenem 1 GM in Sodium Chloride 0.9% 100 ML IVPB SCH ×3 (00:09→17:31)
[2017-05-07 05:53] LABS: BASO # 0.2 K/uL (0.0-0.2); BASO % 0.6 % (0.0-2.0); EOS % 0.1 % (0.0-4.0); HEMOGLOBIN 11.1 g/dL (12.0-18.0); LYMPH % 4.1 % (20.0-40.0); MEAN CELL VOLUME 88.3 fl (80.0-94.0); MEAN CORPUSCULAR HEMOGLOBIN 28.5 pg (27.0-31.0); MEAN CORPUSCULAR HGB CONC 32.3 g/dL (33.0-37.0); MEAN PLATELET VOLUME 7.5 fl (7.2-11.7); MONO # 1.2 K/uL (0.0-0.8); MONO % 4.7 % (0.0-10.0); NEUT # 22.6 K/uL (1.8-7.0); NEUT % 90.5 % (50.0-75.0); PLATELET COUNT 500 K/uL (130-400); RBC 3.88 Mil/uL (4.40-5.90); RED CELL DISTRIBUTION WIDTH 15.2 % (11.5-14.5); WHITE BLOOD COUNT 24.9 K/uL (4.8-10.8)
[2017-05-07 06:04] LABS: BLOOD UREA NITROGEN 10 mg/dl (9-20); CALCIUM 8.7 mg/dL (8.4-10.2); GFR AFRICAN-AMERICAN > 60; GFR NON-AFRICAN AMERICAN > 60
[2017-05-07] MEDS: Pantoprazole 40 mg EC Tab PO SCH (08:31)
[2017-05-07] MEDS: Lidocaine 5% Patch TD SCH (08:31)
[2017-05-07] MEDS: Enoxaparin 40 mg Syringe SC SCH (08:32)
[2017-05-07 11:02] LABS: LYMPHOCYTE 6 % (20-50); MONOCYTE 7 % (0-10); NEUTROPHIL 87 % (42-75); TOTAL CELLS COUNTED 100
[2017-05-07 11:03] LABS: ANISOCYTOSIS SLIGHT; LARGE PLATELETS PRESENT; PLATELET ESTIMATE SLIGHTLY INCREASED (NORMAL)
--- NOTE | 2017-05-07 11:03 | CP.PCM.PN ---
Subjective - Date & Time of Evaluation Date of Evaluation: 05/07/17 Time of Evaluation: 12:00 - Subjective Subjective: ID Note- Pt. seen and examined. denies any fever. still has thick cough. s/p left thoracenthesis and as per IR doc note only 60 ML of fluid was removed and suggests chest tube as fluid is most likely loculated but pt. has refused chest tube. Objective - Vital Signs/Intake and Output Vital Signs (last 24 hours): Temp Pulse Resp BP Pulse Ox 97.8 F 93 H 18 108/72 96 05/07/17 08:00 05/07/17 08:00 05/07/17 08:00 05/07/17 08:00 05/07/17 08:00 - Medications Medications: Current Medications Acetaminophen (Tylenol 325mg Tab) 650 mg PO Q6 PRN PRN Reason: Fever >100.4 F Last Admin: 05/03/17 04:54 Dose: 650 mg Acetaminophen (Tylenol 325mg Tab) 650 mg PO Q6 PRN PRN Reason: Pain, Mild (1-3) Last Admin: 05/04/17 22:05 Dose: 650 mg Albuterol/Ipratropium (Duoneb 3 Mg/0.5 Mg (3 Ml) Ud) 3 ml INH RQ6 PRN PRN Reason: Shortness of Breath Last Admin: 05/03/17 23:30 Dose: 3 ml Azithromycin (Zithromax) 500 mg PO DAILY DERRICK PRN Reason: Protocol Last Admin: 05/07/17 08:31 Dose: 500 mg Enoxaparin Sodium (Lovenox) 40 mg SC DAILY DERRICK PRN Reason: Protocol Last Admin: 05/07/17 08:32 Dose: 40 mg Guaifenesin/Dextromethorphan (Robitussin Dm) 10 ml PO Q6 PRN PRN Reason: Cough Last Admin: 05/04/17 22:06 Dose: 10 ml Vancomycin HCl 1 gm/ Sodium (Chloride) 250 mls @ 166.667 mls/hr IVPB Q12 DERRICK PRN Reason: Protocol Last Admin: 05/07/17 08:32 Dose: 166.667 mls/hr Meropenem 1 gm/ Sodium (Chloride) 100 mls @ 100 mls/hr IVPB Q8 DERRICK PRN Reason: Protocol Last Admin: 03/21/18 08:26 Dose: 100 mls/hr Lidocaine (Lidoderm) 1 ea TD DAILY DERRICK Last Admin: 05/07/17 08:31 Dose: 1 ea Pantoprazole Sodium (Protonix Ec Tab) 40 mg PO DAILY DERRICK Last Admin: 05/07/17 08:31 Dose: 40 mg - Labs Labs: - Additional Findings Additional findings: - Constitutional Appears: No Acute Distress - Head Exam Head Exam: ATRAUMATIC - Eye Exam Eye Exam: EOMI, PERRL - ENT Exam ENT Exam: Normal Oropharynx - Neck Exam Neck exam: Positive for: Full Rom - Respiratory Exam Respiratory Exam: NORMAL BREATHING PATTERN Additional comments: decreased breath sounds at left base no wheezing - Cardiovascular Exam Cardiovascular Exam: RRR, +S1, +S2 - GI/Abdominal Exam GI & Abdominal Exam: Normal Bowel Sounds, Soft Additional comments: NT, ND - Extremities Exam Extremities exam: Positive for: normal inspection - Neurological Exam Neurological exam: Alert, Oriented x 3 Laboratory Results - last 72 hr 05/02/17 05/05/17 05/05/17 14:41 05:00 05:55 WBC 25.2 H RBC 4.00 L Hgb 11.7 L Hct 35.3 MCV 88.3 MCH 29.3 MCHC 33.2 RDW 15.3 H Plt Count 436 H MPV 7.4 Neut % (Auto) 90.0 H Lymph % (Auto) 3.3 L Powell % (Auto) 6.1 Eos % (Auto) 0.2 Baso % (Auto) 0.4 Neut # (Auto) 22.7 H Lymph # (Auto) 0.8 L Powell # (Auto) 1.5 H Eos # (Auto) 0.0 Baso # (Auto) 0.1 Neutrophils % (Manual) 91 H Lymphocytes % (Manual) 3 L Monocytes % (Manual) 5 Basophils % (Manual) 1 Toxic Granulation Present Platelet Estimate Slightly increased H Large Platelets Hypochromasia (manual) Slight Anisocytosis (manual) Slight Tear Drop Cells Slight Ovalocytes Slight Schistocytes Slight PT INR Sodium Potassium Chloride Carbon Dioxide Anion Gap BUN Creatinine Est GFR ( Amer) Est GFR (Non-Af Amer) Random Glucose Calcium Fluid Source Fluid Appearance Fluid pH Fluid WBC Fluid RBC Fluid Tot Cell Count Fluid Neutrophils Fluid Lymphocytes Fld Monocyte/Macrophag Fluid Total Protein Fluid Comment LISSY Screen LISSY Titer LISSY Titer 2 LISSY Pattern LISSY Pattern 2 Proteinase 3 (PR3) Myeloperoxidase Ab Ur L.pneumophila Ag Negative Mycoplasma pneumon IgG Mycoplasma pneumon IgM TB Test (QFT) Nil 0.07 TB Test Mitogen - Nil 1.61 TB Test TB - Nil <0.00 TB Test (QFT) Negative 05/05/17 05/05/17 05/05/17 05:55 08:23 11:45 WBC RBC Hgb Hct MCV MCH MCHC RDW Plt Count MPV Neut % (Auto) Lymph % (Auto) Powell % (Auto) Eos % (Auto) Baso % (Auto) Neut # (Auto) Lymph # (Auto) Powell # (Auto) Eos # (Auto) Baso # (Auto) Neutrophils % (Manual) Lymphocytes % (Manual) Monocytes % (Manual) Basophils % (Manual) Toxic Granulation Platelet Estimate Large Platelets Hypochromasia (manual) Anisocytosis (manual) Tear Drop Cells Ovalocytes Schistocytes PT 15.3 H INR 1.4 H Sodium 141 Potassium 4.1 Chloride 100 Carbon Dioxide 29 Anion Gap 16 BUN 10 Creatinine 0.8 Est GFR ( Amer) > 60 Est GFR (Non-Af Amer) > 60 Random Glucose 103 Calcium 8.5 Fluid Source Fluid Appearance Fluid pH Fluid WBC Fluid RBC Fluid Tot Cell Count Fluid Neutrophils Fluid Lymphocytes Fld Monocyte/Macrophag Fluid Total Protein Fluid Comment LISSY Screen Negative LISSY Titer TEST NOT PERFORMED LISSY Titer 2 TEST NOT PERFORMED LISSY Pattern TEST NOT PERFORMED LISSY Pattern 2 TEST NOT PERFORMED Proteinase 3 (PR3) <1.0 Myeloperoxidase Ab <1.0 Ur L.pneumophila Ag Mycoplasma pneumon IgG Mycoplasma pneumon IgM TB Test (QFT) Nil TB Test Mitogen - Nil TB Test TB - Nil TB Test (QFT) 05/05/17 05/05/17 05/05/17 14:25 16:30 16:30 WBC RBC Hgb Hct MCV MCH MCHC RDW Plt Count MPV Neut % (Auto) Lymph % (Auto) Powell % (Auto) Eos % (Auto) Baso % (Auto) Neut # (Auto) Lymph # (Auto) Powell # (Auto) Eos # (Auto) Baso # (Auto) Neutrophils % (Manual) Lymphocytes % (Manual) Monocytes % (Manual) Basophils % (Manual) Toxic Granulation Platelet Estimate Large Platelets Hypochromasia (manual) Anisocytosis (manual) Tear Drop Cells Ovalocytes Schistocytes PT INR Sodium Potassium Chloride Carbon Dioxide Anion Gap BUN Creatinine Est GFR ( Amer) Est GFR (Non-Af Amer) Random Glucose Calcium Fluid Source Pleural Fluid Appearance Cloudy Fluid pH 8.0 Fluid WBC 6560.0 H Fluid RBC 400.0 H Fluid Tot Cell Count 100 H Fluid Neutrophils 99.0 H Fluid Lymphocytes 1.0 H Fld Monocyte/Macrophag 0 Fluid Total Protein 5.2 Fluid Comment N/a LISSY Screen LISSY Titer LISSY Titer 2 LISSY Pattern LISSY Pattern 2 Proteinase 3 (PR3) Myeloperoxidase Ab Ur L.pneumophila Ag Mycoplasma pneumon IgG Mycoplasma pneumon IgM TB Test (QFT) Nil TB Test Mitogen - Nil TB Test TB - Nil TB Test (QFT) 05/05/17 05/06/17 05/06/17 16:53 04:20 04:20 WBC 22.2 H RBC 3.95 L Hgb 11.5 L Hct 34.8 L MCV 88.1 MCH 29.1 MCHC 33.0 RDW 15.3 H Plt Count 459 H MPV 7.2 Neut % (Auto) 88.3 H Lymph % (Auto) 4.8 L Powell % (Auto) 6.2 Eos % (Auto) 0.3 Baso % (Auto) 0.4 Neut # (Auto) 19.6 H Lymph # (Auto) 1.1 Powell # (Auto) 1.4 H Eos # (Auto) 0.1 Baso # (Auto) 0.1 Neutrophils % (Manual) Lymphocytes % (Manual) Monocytes % (Manual) Basophils % (Manual) Toxic Granulation Platelet Estimate Large Platelets Hypochromasia (manual) Anisocytosis (manual) Tear Drop Cells Ovalocytes Schistocytes PT INR Sodium 140 Potassium 4.0 Chloride 104 Carbon Dioxide 30 Anion Gap 10 BUN 9 Creatinine 0.7 L Est GFR ( Amer) > 60 Est GFR (Non-Af Amer) > 60 Random Glucose 102 Calcium 8.6 Fluid Source Fluid Appearance Fluid pH Fluid WBC Fluid RBC Fluid Tot Cell Count Fluid Neutrophils Fluid Lymphocytes Fld Monocyte/Macrophag Fluid Total Protein Fluid Comment LISSY Screen LISSY Titer LISSY Titer 2 LISSY Pattern LISSY Pattern 2 Proteinase 3 (PR3) Myeloperoxidase Ab Ur L.pneumophila Ag Mycoplasma pneumon IgG >5.00 H Mycoplasma pneumon IgM 538 TB Test (QFT) Nil TB Test Mitogen - Nil TB Test TB - Nil TB Test (QFT) 05/07/17 05/07/17 04:25 04:25 WBC 24.9 H RBC 3.88 L Hgb 11.1 L Hct 34.2 L MCV 88.3 MCH 28.5 MCHC 32.3 L RDW 15.2 H Plt Count 500 H MPV 7.5 Neut % (Auto) 90.5 H Lymph % (Auto) 4.1 L Powell % (Auto) 4.7 Eos % (Auto) 0.1 Baso % (Auto) 0.6 Neut # (Auto) 22.6 H Lymph # (Auto) 1.0 Powell # (Auto) 1.2 H Eos # (Auto) 0.0 Baso # (Auto) 0.2 Neutrophils % (Manual) 87 H Lymphocytes % (Manual) 6 L Monocytes % (Manual) 7 Basophils % (Manual) Toxic Granulation Platelet Estimate Slightly increased H Large Platelets Present Hypochromasia (manual) Anisocytosis (manual) Slight Tear Drop Cells Ovalocytes Schistocytes PT INR Sodium 142 Potassium 3.9 Chloride 102 Carbon Dioxide 31 H Anion Gap 13 BUN 10 Creatinine 0.7 L Est GFR ( Amer) > 60 Est GFR (Non-Af Amer) > 60 Random Glucose 97 Calcium 8.7 Fluid Source Fluid Appearance Fluid pH Fluid WBC Fluid RBC Fluid Tot Cell Count Fluid Neutrophils Fluid Lymphocytes Fld Monocyte/Macrophag Fluid Total Protein Fluid Comment LISSY Screen LISSY Titer LISSY Titer 2 LISSY Pattern LISSY Pattern 2 Proteinase 3 (PR3) Myeloperoxidase Ab Ur L.pneumophila Ag Mycoplasma pneumon IgG Mycoplasma pneumon IgM TB Test (QFT) Nil TB Test Mitogen - Nil TB Test TB - Nil TB Test (QFT) Microbiology 05/02/17 13:15 Blood-Venous Blood Culture - Final NO GROWTH AFTER 5 DAYS 05/02/17 13:15 Blood-Venous Gram Stain - Final TEST NOT PERFORMED 05/02/17 13:05 Blood-Venous Blood Culture - Final NO GROWTH AFTER 5 DAYS 05/05/17 16:30 Pleural Fluid Gram Stain - Final 05/05/17 16:30 Pleural Fluid Anaerobic Culture - Final NO ANAEROBES ISOLATED. 05/05/17 16:30 Pleural Fluid Body Fluid Culture - Preliminary NO GROWTH AFTER 2 DAYS 05/05/17 16:30 Other: Please Indicate Mycobacterial Culture - Preliminary 05/04/17 16:50 Sputum Gram Stain - Final 05/04/17 16:50 Sputum Sputum Culture - Final NORMAL ORAL CJ Assessment and Plan (1) Pneumonia Status: Acute (2) Sepsis Status: Acute (3) Leukocytosis Status: Acute - Assessment and Plan (Free Text) Assessment: A/P- 36 year old male from [facility] admitetd with cough and pleuritic chest pain and fever found to have Left pleural effusion and pneumonia. afebrile past 4 days. high leukocytosis persists despite broad spectrum antibiotics , even s/p left thoracentheis as pt. has as per IR most likely loculated empyema. pleural fluid cell count c/w exudate blood cx- neg x 2 sputum cx- negative large left pleural effusion on chest CT. HIV -negative Influenza- negative pleural fluid gram stain and culture- negative so far. pleural fluid AFB smear- negative quantiferon gold - neg plan- continue with IV meropenem for broader coverage 1 gram IV q8 hours. day 33 continue with IV vancomycin. day #4 keep trough <15. continue with zithromax to cover for atypicals. day #3 will need chest tube , pt. still refuses. f/u pulm recommendations. All above d/w patient and he verbalizes full understanding of all above.
--- NOTE | 2017-05-07 11:28 | CP.PCM.PN ---
Subjective - Date & Time of Evaluation Date of Evaluation: 05/07/17 Time of Evaluation: 10:00 - Subjective Subjective: Pt is afebrile still with purulent sputum cough better Pleuritic CP better no abd pain Again , addressed need for Chest tube placement - pt refused Objective - Vital Signs/Intake and Output Vital Signs (last 24 hours): Temp Pulse Resp BP Pulse Ox 97.8 F 93 H 18 108/72 96 05/07/17 08:00 05/07/17 08:00 05/07/17 08:00 05/07/17 08:00 05/07/17 08:00 - Medications Medications: Current Medications Acetaminophen (Tylenol 325mg Tab) 650 mg PO Q6 PRN PRN Reason: Fever >100.4 F Last Admin: 05/03/17 04:54 Dose: 650 mg Acetaminophen (Tylenol 325mg Tab) 650 mg PO Q6 PRN PRN Reason: Pain, Mild (1-3) Last Admin: 05/04/17 22:05 Dose: 650 mg Albuterol/Ipratropium (Duoneb 3 Mg/0.5 Mg (3 Ml) Ud) 3 ml INH RQ6 PRN PRN Reason: Shortness of Breath Last Admin: 05/03/17 23:30 Dose: 3 ml Azithromycin (Zithromax) 500 mg PO DAILY DERRICK PRN Reason: Protocol Last Admin: 05/07/17 08:31 Dose: 500 mg Enoxaparin Sodium (Lovenox) 40 mg SC DAILY DERRICK PRN Reason: Protocol Last Admin: 05/07/17 08:32 Dose: 40 mg Guaifenesin/Dextromethorphan (Robitussin Dm) 10 ml PO Q6 PRN PRN Reason: Cough Last Admin: 05/04/17 22:06 Dose: 10 ml Vancomycin HCl 1 gm/ Sodium (Chloride) 250 mls @ 166.667 mls/hr IVPB Q12 DERRICK PRN Reason: Protocol Last Admin: 05/07/17 08:32 Dose: 166.667 mls/hr Meropenem 1 gm/ Sodium (Chloride) 100 mls @ 100 mls/hr IVPB Q8 DERRICK PRN Reason: Protocol Last Admin: 05/07/17 08:26 Dose: 100 mls/hr Lidocaine (Lidoderm) 1 ea TD DAILY DERRICK Last Admin: 05/07/17 08:31 Dose: 1 ea Pantoprazole Sodium (Protonix Ec Tab) 40 mg PO DAILY DERRICK Last Admin: 05/07/17 08:31 Dose: 40 mg - Labs Labs: 05/07/17 04:25 05/07/17 04:25 PT 15.3 Seconds (9.8-13.1) H 05/05/17 11:45 INR 1.4 (0.9-1.2) H 05/05/17 11:45 - Constitutional Appears: No Acute Distress, Unkempt - Head Exam Head Exam: NORMAL INSPECTION, NORMOCEPHALIC - Eye Exam Eye Exam: EOMI, Normal appearance, PERRL Pupil Exam: NORMAL ACCOMODATION - ENT Exam ENT Exam: Mucous Membranes Moist, Normal External Ear Exam - Neck Exam Neck Exam: Full ROM. absent: Meningismus - Respiratory Exam Respiratory Exam: Decreased Breath Sounds, minimal Rales, Rhonchi, NORMAL BREATHING PATTERN. absent: Respiratory Distress - Cardiovascular Exam Cardiovascular Exam: REGULAR RHYTHM, +S1, +S2 - GI/Abdominal Exam GI & Abdominal Exam: Soft, Normal Bowel Sounds. absent: Tenderness - Extremities Exam Extremities Exam: Full ROM, Normal Capillary Refill. absent: Calf Tenderness, Pedal Edema - Back Exam Back Exam: Full ROM. absent: CVA tenderness (L), CVA tenderness (R), vertebral tenderness - Neurological Exam Neurological Exam: Alert, Awake, CN II-XII Intact, Oriented x3 Neuro motor strength exam: Left Upper Extremity: 5, Right Upper Extremity: 5, Left Lower Extremity: 5, Right Lower Extremity: 5 - Psychiatric Exam Psychiatric exam: Flat Affect - Skin Skin Exam: Dry, Normal Color, Warm Assessment and Plan - Assessment and Plan (Free Text) Assessment: 36 yo male with history of Depression came in complaining of fever associated with left sided chest pain and cough productive with green sputum 3 days ago. Patient not a very good historian , with flat affect. Complains of pain. CXR showed left pleural effusion. He was febrile with Tmax 102.2 , WBc 28 K, tachycardic. Patient admitted for sepsis secondary to pneumonia and large pleural effusion. He was started initially on Vanco and Zosyn IV . His WBC started trending up despite broad spectrum antibiotics. Pulmonary and ID consulted . Antibiotics changed to Meropenem and Vancomycin on 05/04. Today feels better , afebrile, WBC still elevated. Cultures with no growth so far Went for left thoracentesis by IR on 05/05. Refused Chest Tube Placement. 1. Sepsis sec to Pneumonia likely Bacterial Cultures with no growth so far lidoderm patch placed to left hemithorax for pain control Continue O2 via NC s/p left thoracentesis Continue Meropenem and Vancomycin IV Sputum Gram stain : mod gram + cocci in chains Pleural fluid c/s : neg so far 2. LLL Pneumonia with large pleural effusion Ct chest showed large pleural effusion , atelectasis On vanco and Zosyn IV since admission . ID consulted since WBC continued to trend up Zosyn changed to Meropenem IV S/p thoracentesis with removal of 60 ml fluid 05/[address] Lazaro, Patient will need chest tube placement to left hemithorax since fluid collection seems to be loculated Pt refused adamantly Chest tube placement despite discussion of poss risks and benefits Pulmonary consulted Dr. Parker O2 supplement 2LPM via NC 3. Pedal Edema- resolved venous doppler negative for DVT 4.Depression Psych consulted patient refuses medical management 5. Lice infestation decontaminated in ER received Permethrin 6. DVt prophylaxis Lovenox
[2017-05-08] MEDS: Meropenem 1 GM in Sodium Chloride 0.9% 100 ML IVPB SCH ×3 (00:37→17:17)
[2017-05-08 05:38] LABS: BASO # 0.1 K/uL (0.0-0.2); BASO % 0.5 % (0.0-2.0); EOS # 0.1 K/uL (0.0-0.7); EOS % 0.3 % (0.0-4.0); HEMOGLOBIN 11.3 g/dL (12.0-18.0); LYMPH # 1.3 K/uL (1.0-4.3); LYMPH % 5.3 % (20.0-40.0); MEAN CORPUSCULAR HEMOGLOBIN 28.7 pg (27.0-31.0); MEAN CORPUSCULAR HGB CONC 32.6 g/dL (33.0-37.0); MEAN PLATELET VOLUME 7.3 fl (7.2-11.7); MONO # 1.1 K/uL (0.0-0.8); MONO % 4.6 % (0.0-10.0); NEUT % 89.3 % (50.0-75.0); RBC 3.95 Mil/uL (4.40-5.90); RED CELL DISTRIBUTION WIDTH 15.5 % (11.5-14.5); WHITE BLOOD COUNT 24.7 K/uL (4.8-10.8)
[2017-05-08 05:55] LABS: ALB/GLOB RATIO 0.7 (1.0-2.1); ALBUMIN 2.7 g/dL (3.5-5.0); ALT/SGPT 31 U/L (21-72); AST/SGOT 41 U/L (17-59); BLOOD UREA NITROGEN 10 mg/dl (9-20); CALCIUM 8.8 mg/dL (8.4-10.2); GFR AFRICAN-AMERICAN > 60; GFR NON-AFRICAN AMERICAN > 60
[2017-05-08] MEDS: Enoxaparin 40 mg Syringe SC SCH (09:09)
[2017-05-08] MEDS: Pantoprazole 40 mg EC Tab PO SCH (09:10)
[2017-05-08] MEDS: guaiFENesin DM 200 mg-20 mg/10 ml UD PO PRN (09:11)
[2017-05-08] MEDS: Lidocaine 5% Patch TD SCH (09:13)
--- NOTE | 2017-05-08 14:04 | CP.PCM.PN ---
Subjective - Date & Time of Evaluation Date of Evaluation: 05/08/17 Time of Evaluation: 14:04 - Subjective Subjective: ID Note- Pt. seen and examined today. pt. report she is feeling ok , denies any fever or chills. explained to patient at length about need for chest tube to drain the loculated pleural effusion but he refuses again. Objective - Vital Signs/Intake and Output Vital Signs (last 24 hours): Temp Pulse Resp BP Pulse Ox 98.1 F 79 16 102/62 97 05/08/17 11:41 05/08/17 11:41 05/08/17 11:41 05/08/17 11:41 05/08/17 11:41 - Medications Medications: Current Medications Acetaminophen (Tylenol 325mg Tab) 650 mg PO Q6 PRN PRN Reason: Fever >100.4 F Last Admin: 05/03/17 04:54 Dose: 650 mg Acetaminophen (Tylenol 325mg Tab) 650 mg PO Q6 PRN PRN Reason: Pain, Mild (1-3) Last Admin: 05/04/17 22:05 Dose: 650 mg Albuterol/Ipratropium (Duoneb 3 Mg/0.5 Mg (3 Ml) Ud) 3 ml INH RQ6 PRN PRN Reason: Shortness of Breath Last Admin: 05/03/17 23:30 Dose: 3 ml Azithromycin (Zithromax) 500 mg PO DAILY [facility] PRN Reason: Protocol Last Admin: 05/08/17 09:10 Dose: 500 mg Enoxaparin Sodium (Lovenox) 40 mg SC DAILY [facility] PRN Reason: Protocol Last Admin: 05/08/17 09:09 Dose: 40 mg Guaifenesin/Dextromethorphan (Robitussin Dm) 10 ml PO Q6 PRN PRN Reason: Cough Last Admin: 05/08/17 09:11 Dose: 10 ml Vancomycin HCl 1 gm/ Sodium (Chloride) 250 mls @ 166.667 mls/hr IVPB Q12 [facility] PRN Reason: Protocol Last Admin: 05/08/17 10:38 Dose: 166.667 mls/hr Meropenem 1 gm/ Sodium (Chloride) 100 mls @ 100 mls/hr IVPB Q8 [facility] PRN Reason: Protocol Last Admin: 05/08/17 09:08 Dose: 100 mls/hr Lidocaine (Lidoderm) 1 ea TD DAILY [facility] Last Admin: 05/08/17 09:13 Dose: Not Given Pantoprazole Sodium (Protonix Ec Tab) 40 mg PO DAILY [facility] Last Admin: 05/08/17 09:10 Dose: 40 mg - Labs Labs: - Additional Findings Additional findings: - Constitutional Appears: No Acute Distress - Head Exam Head Exam: ATRAUMATIC - Eye Exam Eye Exam: EOMI, PERRL - ENT Exam ENT Exam: Normal Oropharynx - Neck Exam Neck exam: Positive for: Full Rom - Respiratory Exam Respiratory Exam: NORMAL BREATHING PATTERN Additional comments: decreased breath sounds at left base - Cardiovascular Exam Cardiovascular Exam: RRR, +S1, +S2 - GI/Abdominal Exam GI & Abdominal Exam: Normal Bowel Sounds, Soft Additional comments: NT, ND - Extremities Exam Extremities exam: Positive for: normal inspection - Neurological Exam Neurological exam: Alert, Oriented x 3 Laboratory Results - last 72 hr 05/02/17 05/05/17 05/05/17 14:41 05:00 08:23 WBC RBC Hgb Hct MCV MCH MCHC RDW Plt Count MPV Neut % (Auto) Lymph % (Auto) Carter % (Auto) Eos % (Auto) Baso % (Auto) Neut # (Auto) Lymph # (Auto) Carter # (Auto) Eos # (Auto) Baso # (Auto) Neutrophils % (Manual) Lymphocytes % (Manual) Monocytes % (Manual) Platelet Estimate Large Platelets Anisocytosis (manual) Sodium Potassium Chloride Carbon Dioxide Anion Gap BUN Creatinine Est GFR ( Amer) Est GFR (Non-Af Amer) Random Glucose Calcium Total Bilirubin AST ALT Alkaline Phosphatase Total Protein Albumin Globulin Albumin/Globulin Ratio Fluid Source Fluid Appearance Fluid pH Fluid WBC Fluid RBC Fluid Tot Cell Count Fluid Neutrophils Fluid Lymphocytes Fld Monocyte/Macrophag Fluid Total Protein Fluid Comment Vancomycin Trough LISSY Screen Negative LISSY Titer TEST NOT PERFORMED LISSY Titer 2 TEST NOT PERFORMED LISSY Pattern TEST NOT PERFORMED LISSY Pattern 2 TEST NOT PERFORMED Proteinase 3 (PR3) <1.0 Myeloperoxidase Ab <1.0 Ur L.pneumophila Ag Negative Mycoplasma pneumon IgG Mycoplasma pneumon IgM TB Test (QFT) Nil 0.07 TB Test Mitogen - Nil 1.61 TB Test TB - Nil <0.00 TB Test (QFT) Negative 05/05/17 05/05/17 05/05/17 14:25 16:30 16:30 WBC RBC Hgb Hct MCV MCH MCHC RDW Plt Count MPV Neut % (Auto) Lymph % (Auto) Carter % (Auto) Eos % (Auto) Baso % (Auto) Neut # (Auto) Lymph # (Auto) Carter # (Auto) Eos # (Auto) Baso # (Auto) Neutrophils % (Manual) Lymphocytes % (Manual) Monocytes % (Manual) Platelet Estimate Large Platelets Anisocytosis (manual) Sodium Potassium Chloride Carbon Dioxide Anion Gap BUN Creatinine Est GFR ( Amer) Est GFR (Non-Af Amer) Random Glucose Calcium Total Bilirubin AST ALT Alkaline Phosphatase Total Protein Albumin Globulin Albumin/Globulin Ratio Fluid Source Pleural Fluid Appearance Cloudy Fluid pH 8.0 Fluid WBC 6560.0 H Fluid RBC 400.0 H Fluid Tot Cell Count 100 H Fluid Neutrophils 99.0 H Fluid Lymphocytes 1.0 H Fld Monocyte/Macrophag 0 Fluid Total Protein 5.2 Fluid Comment N/a Vancomycin Trough LISSY Screen LISSY Titer LISSY Titer 2 LISSY Pattern LISSY Pattern 2 Proteinase 3 (PR3) Myeloperoxidase Ab Ur L.pneumophila Ag Mycoplasma pneumon IgG Mycoplasma pneumon IgM TB Test (QFT) Nil TB Test Mitogen - Nil TB Test TB - Nil TB Test (QFT) 05/05/17 05/06/17 05/06/17 16:53 04:20 04:20 WBC 22.2 H RBC 3.95 L Hgb 11.5 L Hct 34.8 L MCV 88.1 MCH 29.1 MCHC 33.0 RDW 15.3 H Plt Count 459 H MPV 7.2 Neut % (Auto) 88.3 H Lymph % (Auto) 4.8 L Carter % (Auto) 6.2 Eos % (Auto) 0.3 Baso % (Auto) 0.4 Neut # (Auto) 19.6 H Lymph # (Auto) 1.1 Carter # (Auto) 1.4 H Eos # (Auto) 0.1 Baso # (Auto) 0.1 Neutrophils % (Manual) Lymphocytes % (Manual) Monocytes % (Manual) Platelet Estimate Large Platelets Anisocytosis (manual) Sodium 140 Potassium 4.0 Chloride 104 Carbon Dioxide 30 Anion Gap 10 BUN 9 Creatinine 0.7 L Est GFR ( Amer) > 60 Est GFR (Non-Af Amer) > 60 Random Glucose 102 Calcium 8.6 Total Bilirubin AST ALT Alkaline Phosphatase Total Protein Albumin Globulin Albumin/Globulin Ratio Fluid Source Fluid Appearance Fluid pH Fluid WBC Fluid RBC Fluid Tot Cell Count Fluid Neutrophils Fluid Lymphocytes Fld Monocyte/Macrophag Fluid Total Protein Fluid Comment Vancomycin Trough LISSY Screen LISSY Titer LISSY Titer 2 LISSY Pattern LISSY Pattern 2 Proteinase 3 (PR3) Myeloperoxidase Ab Ur L.pneumophila Ag Mycoplasma pneumon IgG >5.00 H Mycoplasma pneumon IgM 538 TB Test (QFT) Nil TB Test Mitogen - Nil TB Test TB - Nil TB Test (QFT) 05/07/17 05/07/17 05/08/17 04:25 04:25 05:00 WBC 24.9 H 24.7 H RBC 3.88 L 3.95 L Hgb 11.1 L 11.3 L Hct 34.2 L 34.8 L MCV 88.3 88.0 MCH 28.5 28.7 MCHC 32.3 L 32.6 L RDW 15.2 H 15.5 H Plt Count 500 H 543 H MPV 7.5 7.3 Neut % (Auto) 90.5 H 89.3 H Lymph % (Auto) 4.1 L 5.3 L Carter % (Auto) 4.7 4.6 Eos % (Auto) 0.1 0.3 Baso % (Auto) 0.6 0.5 Neut # (Auto) 22.6 H 22.0 H Lymph # (Auto) 1.0 1.3 Carter # (Auto) 1.2 H 1.1 H Eos # (Auto) 0.0 0.1 Baso # (Auto) 0.2 0.1 Neutrophils % (Manual) 87 H Lymphocytes % (Manual) 6 L Monocytes % (Manual) 7 Platelet Estimate Slightly increased H Large Platelets Present Anisocytosis (manual) Slight Sodium 142 Potassium 3.9 Chloride 102 Carbon Dioxide 31 H Anion Gap 13 BUN 10 Creatinine 0.7 L Est GFR ( Amer) > 60 Est GFR (Non-Af Amer) > 60 Random Glucose 97 Calcium 8.7 Total Bilirubin AST ALT Alkaline Phosphatase Total Protein Albumin Globulin Albumin/Globulin Ratio Fluid Source Fluid Appearance Fluid pH Fluid WBC Fluid RBC Fluid Tot Cell Count Fluid Neutrophils Fluid Lymphocytes Fld Monocyte/Macrophag Fluid Total Protein Fluid Comment Vancomycin Trough LISSY Screen LISSY Titer LISSY Titer 2 LISSY Pattern LISSY Pattern 2 Proteinase 3 (PR3) Myeloperoxidase Ab Ur L.pneumophila Ag Mycoplasma pneumon IgG Mycoplasma pneumon IgM TB Test (QFT) Nil TB Test Mitogen - Nil TB Test TB - Nil TB Test (QFT) 05/08/17 05/08/17 05:00 05:00 WBC RBC Hgb Hct MCV MCH MCHC RDW Plt Count MPV Neut % (Auto) Lymph % (Auto) Carter % (Auto) Eos % (Auto) Baso % (Auto) Neut # (Auto) Lymph # (Auto) Carter # (Auto) Eos # (Auto) Baso # (Auto) Neutrophils % (Manual) Lymphocytes % (Manual) Monocytes % (Manual) Platelet Estimate Large Platelets Anisocytosis (manual) Sodium 141 Potassium 4.1 Chloride 102 Carbon Dioxide 33 H Anion Gap 10 BUN 10 Creatinine 0.7 L Est GFR ( Amer) > 60 Est GFR (Non-Af Amer) > 60 Random Glucose 99 Calcium 8.8 Total Bilirubin 0.3 AST 41 ALT 31 Alkaline Phosphatase 83 Total Protein 6.9 Albumin 2.7 L D Globulin 4.1 H Albumin/Globulin Ratio 0.7 L Fluid Source Fluid Appearance Fluid pH Fluid WBC Fluid RBC Fluid Tot Cell Count Fluid Neutrophils Fluid Lymphocytes Fld Monocyte/Macrophag Fluid Total Protein Fluid Comment Vancomycin Trough 10.8 H LISSY Screen LISSY Titer LISSY Titer 2 LISSY Pattern LISSY Pattern 2 Proteinase 3 (PR3) Myeloperoxidase Ab Ur L.pneumophila Ag Mycoplasma pneumon IgG Mycoplasma pneumon IgM TB Test (QFT) Nil TB Test Mitogen - Nil TB Test TB - Nil TB Test (QFT) Microbiology 05/05/17 16:30 Pleural Fluid Gram Stain - Final 05/05/17 16:30 Pleural Fluid Anaerobic Culture - Final NO ANAEROBES ISOLATED. 05/05/17 16:30 Pleural Fluid Body Fluid Culture - Preliminary NO GROWTH AFTER 3 DAYS 05/02/17 13:15 Blood-Venous Blood Culture - Final NO GROWTH AFTER 5 DAYS 05/02/17 13:15 Blood-Venous Gram Stain - Final TEST NOT PERFORMED 05/02/17 13:05 Blood-Venous Blood Culture - Final NO GROWTH AFTER 5 DAYS 05/05/17 16:30 Other: Please Indicate Mycobacterial Culture - Preliminary 05/04/17 16:50 Sputum Gram Stain - Final 05/04/17 16:50 Sputum Sputum Culture - Final NORMAL ORAL CJ Assessment and Plan (1) Pneumonia Status: Acute (2) Sepsis Status: Acute (3) Leukocytosis Status: Acute - Assessment and Plan (Free Text) Assessment: A/P- 36 year old male from [facility] admitetd with cough and pleuritic chest pain and fever found to have Left pleural effusion and pneumonia. afebrile past 5 days. high leukocytosis persists despite broad spectrum antibiotics , even s/p left thoracentheis by IR but minimal fluid was removed as per IR the pleural effusion is loculated and needs chest tube placement pleural fluid cell count c/w exudate blood cx- neg x 2 sputum cx- negative large left pleural effusion on chest CT. HIV -negative Influenza- negative pleural fluid gram stain and culture- negative so far. pleural fluid AFB smear- negative quantiferon gold - neg legionelal - negative mycoplasma IGG- negative plan- continue with IV meropenem for broader coverage 1 gram IV q8 hours. day #4. continue with IV vancomycin. day #5. keep trough <15. can d/c oral zithromax at this time. will need chest tube for loculated pleural fluid drainage and the importance of it d/w patient at length and explained that antibiotics alone won't be sufficient but patient still refuses to have any surgical procedure. f/u pulm recommendations. case d/w the hospitalist at length as well.
--- NOTE | 2017-05-08 14:29 | CP.PCM.PN ---
Subjective - Date & Time of Evaluation Date of Evaluation: 05/08/17 Time of Evaluation: 13:00 - Subjective Subjective: Pt is afebrile he states that his cough is very much better and purulent sputum less than previous Pleuritic chest pain resolved still with some SOB with exertion denies abd pain Objective - Vital Signs/Intake and Output Vital Signs (last 24 hours): Temp Pulse Resp BP Pulse Ox 98.1 F 79 16 102/62 97 05/08/17 11:41 05/08/17 11:41 05/08/17 11:41 05/08/17 11:41 05/08/17 11:41 - Medications Medications: Current Medications Acetaminophen (Tylenol 325mg Tab) 650 mg PO Q6 PRN PRN Reason: Fever >100.4 F Last Admin: 05/03/17 04:54 Dose: 650 mg Acetaminophen (Tylenol 325mg Tab) 650 mg PO Q6 PRN PRN Reason: Pain, Mild (1-3) Last Admin: 05/04/17 22:05 Dose: 650 mg Albuterol/Ipratropium (Duoneb 3 Mg/0.5 Mg (3 Ml) Ud) 3 ml INH RQ6 PRN PRN Reason: Shortness of Breath Last Admin: 05/03/17 23:30 Dose: 3 ml Azithromycin (Zithromax) 500 mg PO DAILY [facility] PRN Reason: Protocol Last Admin: 05/08/17 09:10 Dose: 500 mg Enoxaparin Sodium (Lovenox) 40 mg SC DAILY [facility] PRN Reason: Protocol Last Admin: 05/08/17 09:09 Dose: 40 mg Guaifenesin/Dextromethorphan (Robitussin Dm) 10 ml PO Q6 PRN PRN Reason: Cough Last Admin: 05/08/17 09:11 Dose: 10 ml Vancomycin HCl 1 gm/ Sodium (Chloride) 250 mls @ 166.667 mls/hr IVPB Q12 [facility] PRN Reason: Protocol Last Admin: 05/08/17 10:38 Dose: 166.667 mls/hr Meropenem 1 gm/ Sodium (Chloride) 100 mls @ 100 mls/hr IVPB Q8 [facility]ICK PRN Reason: Protocol Last Admin: 05/08/17 09:08 Dose: 100 mls/hr Lidocaine (Lidoderm) 1 ea TD DAILY [facility] Last Admin: 05/08/17 09:13 Dose: Not Given Pantoprazole Sodium (Protonix Ec Tab) 40 mg PO DAILY [facility] Last Admin: 05/08/17 09:10 Dose: 40 mg - Labs Labs: 05/08/17 05:00 05/08/17 05:00 PT 15.3 Seconds (9.8-13.1) H 05/05/17 11:45 INR 1.4 (0.9-1.2) H 05/05/17 11:45 - Constitutional Appears: No Acute Distress, Unkempt - Head Exam Head Exam: NORMAL INSPECTION, NORMOCEPHALIC - Eye Exam Eye Exam: EOMI, Normal appearance, PERRL Pupil Exam: NORMAL ACCOMODATION - ENT Exam ENT Exam: Mucous Membranes Moist, Normal External Ear Exam - Neck Exam Neck Exam: Full ROM. absent: Meningismus - Respiratory Exam Respiratory Exam: Decreased Breath Sounds, minimal Rales, Rhonchi, NORMAL BREATHING PATTERN. absent: Respiratory Distress - Cardiovascular Exam Cardiovascular Exam: REGULAR RHYTHM, +S1, +S2 - GI/Abdominal Exam GI & Abdominal Exam: Soft, Normal Bowel Sounds. absent: Tenderness - Extremities Exam Extremities Exam: Full ROM, Normal Capillary Refill. absent: Calf Tenderness, Pedal Edema - Back Exam Back Exam: Full ROM. absent: CVA tenderness (L), CVA tenderness (R), vertebral tenderness - Neurological Exam Neurological Exam: Alert, Awake, CN II-XII Intact, Oriented x3 Neuro motor strength exam: Left Upper Extremity: 5, Right Upper Extremity: 5, Left Lower Extremity: 5, Right Lower Extremity: 5 - Psychiatric Exam Psychiatric exam: Flat Affect - Skin Skin Exam: Dry, Normal Color, Warm Assessment and Plan - Assessment and Plan (Free Text) Assessment: 36 yo male with history of Depression came in complaining of fever associated with left sided chest pain and cough productive with green sputum 3 days ago. Patient not a very good historian , with flat affect. Complains of pain. CXR showed left pleural effusion. He was febrile with Tmax 102.2 , WBc 28 K, tachycardic. Patient admitted for sepsis secondary to pneumonia and large pleural effusion. He was started initially on Vanco and Zosyn IV . His WBC started trending up despite broad spectrum antibiotics. Pulmonary and ID consulted . Antibiotics changed to Meropenem and Vancomycin on 05/04. Today feels better , afebrile, WBC still elevated. Cultures with no growth so far Went for left thoracentesis by IR on 05/05. Refused Chest Tube Placement. 1. Sepsis sec to Pneumonia likely Bacterial Cultures with no growth so far lidoderm patch placed to left hemithorax for pain control Continue O2 via NC s/p left thoracentesis Continue Meropenem , Vancomycin IV and Azithro Sputum Gram stain : mod gram + cocci in chains Pleural fluid c/s : neg so far 2. LLL Pneumonia with large pleural effusion Ct chest showed large pleural effusion , atelectasis On vanco and Zosyn IV since admission . ID consulted since WBC continued to trend up Zosyn changed to Meropenem IV S/p thoracentesis with removal of 60 ml fluid 05/[address] Lazaro, Patient will need chest tube placement to left hemithorax since fluid collection seems to be loculated Pt refused adamantly Chest tube placement despite discussion of poss risks and benefits Pulmonary consulted Dr. Parker O2 supplement 2LPM via NC 3. Pedal Edema- resolved venous doppler negative for DVT 4.Depression Psych consulted patient refuses medical management 5. Lice infestation decontaminated in ER received Permethrin 6. DVt prophylaxis Lovenox
[2017-05-09] MEDS: Meropenem 1 GM in Sodium Chloride 0.9% 100 ML IVPB SCH ×3 (00:57→17:18)
--- NOTE | 2017-05-09 08:28 | CP.PCM.PN ---
Subjective - Date & Time of Evaluation Date of Evaluation: 05/09/17 Time of Evaluation: 08:28 - Subjective Subjective: patient states breathing is unchanged this morning appears guarded agreed to chest tube after extensive discussion with hospitalist team HD stable NAD Objective - Vital Signs/Intake and Output Vital Signs (last 24 hours): Temp Pulse Resp BP Pulse Ox 98.8 F 80 18 94/56 L 96 05/09/17 07:53 05/09/17 07:53 05/09/17 07:53 05/09/17 07:53 05/09/17 07:53 GENERAL APPEARANCE: Well developed, well nourished, alert and cooperative, and appears to be in no acute distress. HEENT: normocephalic, atraumatic PERRL, EOMI. Vision is grossly intact. External auditory canals clear, hearing grossly intact. No nasal discharge. Oral cavity and pharynx normal. No inflammation, swelling, exudate, or lesions. NECK: Neck supple, non-tender without lymphadenopathy, masses or thyromegaly. CARDIAC: Normal S1 and S2. No S3, S4 or murmurs. Rhythm is regular. LUNGS: diminished breath sounds, poor inspiratory effort, clear ABDOMEN: Positive bowel sounds. Soft, nondistended, nontender. No guarding or rebound. No masses. BACK: Examination of the spine reveals no spinal deformity, symmetry of spinal muscles, EXTREMITIES: No significant deformity or joint abnormality. No edema. NEUROLOGICAL: Strength and sensation symmetric and intact throughout. Reflexes 2 + throughout. SKIN: Skin normal color, texture and turgor with no lesions or eruptions. PSYCHIATRIC: The patient was oriented to person, place, and time. Normal affect. - Medications Medications: Current Medications Acetaminophen (Tylenol 325mg Tab) 650 mg PO Q6 PRN PRN Reason: Fever >100.4 F Last Admin: 05/03/17 04:54 Dose: 650 mg Acetaminophen (Tylenol 325mg Tab) 650 mg PO Q6 PRN PRN Reason: Pain, Mild (1-3) Last Admin: 05/04/17 22:05 Dose: 650 mg Albuterol/Ipratropium (Duoneb 3 Mg/0.5 Mg (3 Ml) Ud) 3 ml INH RQ6 PRN PRN Reason: Shortness of Breath Last Admin: 05/03/17 23:30 Dose: 3 ml Azithromycin (Zithromax) 500 mg PO DAILY [facility] PRN Reason: Protocol Last Admin: 05/08/17 09:10 Dose: 500 mg Enoxaparin Sodium (Lovenox) 40 mg SC DAILY [facility] PRN Reason: Protocol Last Admin: 05/08/17 09:09 Dose: 40 mg Guaifenesin/Dextromethorphan (Robitussin Dm) 10 ml PO Q6 PRN PRN Reason: Cough Last Admin: 05/08/17 09:11 Dose: 10 ml Vancomycin HCl 1 gm/ Sodium (Chloride) 250 mls @ 166.667 mls/hr IVPB Q12 [facility]ICK PRN Reason: Protocol Last Admin: 05/08/17 21:37 Dose: 166.667 mls/hr Meropenem 1 gm/ Sodium (Chloride) 100 mls @ 100 mls/hr IVPB Q8 [facility]ERRICK PRN Reason: Protocol Last Admin: 05/09/17 00:57 Dose: 100 mls/hr Lidocaine (Lidoderm) 1 ea TD DAILY [facility] Last Admin: 05/08/17 09:13 Dose: Not Given Pantoprazole Sodium (Protonix Ec Tab) 40 mg PO DAILY [facility] Last Admin: 05/08/17 09:10 Dose: 40 mg - Labs Labs: 05/08/17 05:00 05/08/17 05:00 PT 15.3 Seconds (9.8-13.1) H 05/05/17 11:45 INR 1.4 (0.9-1.2) H 05/05/17 11:45 Assessment and Plan - Assessment and Plan (Free Text) Plan: 36 yo male with history of Depression came in complaining of fever associated with left sided chest pain and cough productive with green sputum 3 days ago. Patient not a very good historian , with flat affect. Complains of pain. CXR showed left pleural effusion. He was febrile with Tmax 102.2 , WBc 28 K, tachycardic. Patient admitted for sepsis secondary to pneumonia and large pleural effusion. He was started initially on Vanco and Zosyn IV . His WBC started trending up despite broad spectrum antibiotics. Pulmonary and ID consulted . Antibiotics changed to Meropenem and Vancomycin on 05/04. Left thoracentesis by IR 05/05. Chest tube placement by IR 05/09. 1. Sepsis sec to Pneumonia likely Bacterial Cultures with no growth so far lidoderm patch placed to left hemithorax for pain control Continue O2 via NC s/p left thoracentesis Continue Meropenem , Vancomycin IV and Azithro Sputum Gram stain : mod gram + cocci in chains Pleural fluid c/s : neg so far 2. LLL Pneumonia with large pleural effusion Ct chest showed large pleural effusion , atelectasis On vanco and Zosyn IV since admission ID consulted since WBC continued to trend up Zosyn changed to Meropenem IV S/p thoracentesis with removal of 60 ml fluid 05/[address] Lazaro, Patient will need chest tube placement to left hemithorax since fluid collection seems to be loculated Pt intially refused adamantly, for Chest tube placement today with IR Pulmonary consulted Dr. Parker O2 supplement 2LPM via NC 3. Pedal Edema- resolved venous doppler negative for DVT 4.Depression Psych consulted patient refuses medical management 5. Lice infestation decontaminated in ER received Permethrin 6. DVt prophylaxis Lovenox
[2017-05-09] MEDS: Lidocaine 5% Patch TD SCH (09:28)
[2017-05-09] MEDS: Enoxaparin 40 mg Syringe SC SCH (09:29)
[2017-05-09] MEDS: Pantoprazole 40 mg EC Tab PO SCH (09:31)
[2017-05-09] MEDS ORDERED: Lidocaine 1% Inj (20ml) ONE (14:39)
[2017-05-09] MEDS ORDERED: Midazolam 2 MG/2 ML VIAL ONE (14:45)
--- NOTE | 2017-05-09 15:17 | PCM.SURG1 ---
Surgeon's Initial Post Op Note - Surgeon's Notes Surgeon: Michael Lazaro MD Crime Scene Investigator: NONE Type of Anesthesia: IV Sedation Pre-Operative Diagnosis: Loculated left pleural effusion Operative Findings: CT showed large left pleural effusion Post-Operative Diagnosis: Loculated left pleural effusion Operation Performed: CT guided placement of a pigtail pleural drainage catheter Specimen/Specimens Removed: NONE Estimated Blood Loss: EBL {In ML}: 0 Blood Products Given: N/A Drains Used: Chest Tubes Post-Op Condition: Fair Date of Surgery/Procedure: 05/09/17 Time of Surgery/Procedure: 15:10
[2017-05-09] MEDS ORDERED: Sodium Chloride 0.9% 100 ML IV ONE (15:20)
[2017-05-09] MEDS: Sodium Chloride 0.9% 1,000 ML IV SCH (17:11)
[2017-05-10] MEDS: Meropenem 1 GM in Sodium Chloride 0.9% 100 ML IVPB SCH ×3 (00:38→17:12)
[2017-05-10] MEDS: Sodium Chloride 0.9% 1,000 ML IV SCH ×3 (00:41→22:00)
[2017-05-10 07:28] LABS: BASO # 0.1 K/uL (0.0-0.2); BASO % 0.9 % (0.0-2.0); EOS # 0.1 K/uL (0.0-0.7); EOS % 0.7 % (0.0-4.0); HEMOGLOBIN 11.7 g/dL (12.0-18.0); LYMPH # 1.1 K/uL (1.0-4.3); LYMPH % 8.6 % (20.0-40.0); MEAN CELL VOLUME 87.1 fl (80.0-94.0); MEAN CORPUSCULAR HEMOGLOBIN 28.4 pg (27.0-31.0); MEAN CORPUSCULAR HGB CONC 32.6 g/dL (33.0-37.0); MEAN PLATELET VOLUME 7.4 fl (7.2-11.7); MONO # 0.7 K/uL (0.0-0.8); MONO % 5.6 % (0.0-10.0); NEUT # 11.2 K/uL (1.8-7.0); NEUT % 84.2 % (50.0-75.0); PLATELET COUNT 693 K/uL (130-400); RBC 4.13 Mil/uL (4.40-5.90); RED CELL DISTRIBUTION WIDTH 15.4 % (11.5-14.5); WHITE BLOOD COUNT 13.3 K/uL (4.8-10.8)
--- NOTE | 2017-05-10 07:30 | CP.PCM.PN ---
Subjective - Date & Time of Evaluation Date of Evaluation: 05/10/17 Time of Evaluation: 07:30 - Subjective Subjective: patient comfortable this morning, continues to be guarded, however cooperative with exam pain well controlled, dypsnea improving WBC also improving HD stable NAD Objective - Vital Signs/Intake and Output Vital Signs (last 24 hours): Temp Pulse Resp BP Pulse Ox 98 F 77 18 105/66 98 05/10/17 00:10 05/10/17 00:10 05/10/17 00:10 05/10/17 00:10 05/10/17 00:10 Vitals Reviewed GEN: WDWN, alert, cooperative HEENT: NCAT, PERRL, EOMI HEART: RRR, +S1S2, NO MRG LUNG: CTAB, NO WRR +CHEST TUBE IN PLACE ABD: soft, NT, ND, No HSM, No masses EXT: normal pedal pulses, normal capillary refill NEURO: awake, alert, no focal deficits SKIN: warm, dry PSYCH: normal mood, normal affect Intake and Output: 05/10/17 05/10/17 06:59 18:59 Intake Total 1430 Output Total 1334 Balance 96 - Medications Medications: Current Medications Acetaminophen (Tylenol 325mg Tab) 650 mg PO Q6 PRN PRN Reason: Fever >100.4 F Last Admin: 05/03/17 04:54 Dose: 650 mg Acetaminophen (Tylenol 325mg Tab) 650 mg PO Q6 PRN PRN Reason: Pain, Mild (1-3) Last Admin: 05/04/17 22:05 Dose: 650 mg Albuterol/Ipratropium (Duoneb 3 Mg/0.5 Mg (3 Ml) Ud) 3 ml INH RQ6 PRN PRN Reason: Shortness of Breath Last Admin: 05/03/17 23:30 Dose: 3 ml Azithromycin (Zithromax) 500 mg PO DAILY [facility] PRN Reason: Protocol Last Admin: 05/09/17 09:31 Dose: 500 mg Enoxaparin Sodium (Lovenox) 40 mg SC DAILY [facility] PRN Reason: Protocol Last Admin: 05/09/17 09:29 Dose: 40 mg Guaifenesin/Dextromethorphan (Robitussin Dm) 10 ml PO Q6 PRN PRN Reason: Cough Last Admin: 05/08/17 09:11 Dose: 10 ml Vancomycin HCl 1 gm/ Sodium (Chloride) 250 mls @ 166.667 mls/hr IVPB Q12 [facility] PRN Reason: Protocol Last Admin: 05/09/17 21:08 Dose: 166.667 mls/hr Meropenem 1 gm/ Sodium (Chloride) 100 mls @ 100 mls/hr IVPB Q8 [facility] PRN Reason: Protocol Last Admin: 05/10/17 00:38 Dose: 100 mls/hr Sodium Chloride (Sodium Chloride 0.9%) 1,000 mls @ 100 mls/hr IV .Q10H [facility] Last Admin: 05/10/17 00:41 Dose: Not Given Lidocaine (Lidoderm) 1 ea TD DAILY [facility] Last Admin: 05/09/17 09:28 Dose: 1 ea Pantoprazole Sodium (Protonix Ec Tab) 40 mg PO DAILY [facility] Last Admin: 05/09/17 09:31 Dose: 40 mg - Labs Labs: 05/08/17 05:00 05/08/17 05:00 PT 15.3 Seconds (9.8-13.1) H 05/05/17 11:45 INR 1.4 (0.9-1.2) H 05/05/17 11:45 Assessment and Plan - Assessment and Plan (Free Text) Plan: 36 yo male with history of Depression came in complaining of fever associated with left sided chest pain and cough productive with green sputum 3 days ago. Patient not a very good historian , with flat affect. Complains of pain. CXR showed left pleural effusion. He was febrile with Tmax 102.2 , WBc 28 K, tachycardic. Patient admitted for sepsis secondary to pneumonia and large pleural effusion. He was started initially on Vanco and Zosyn IV . His WBC started trending up despite broad spectrum antibiotics. Pulmonary and ID consulted . Antibiotics changed to Meropenem and Vancomycin on 05/04. Left thoracentesis by IR 05/05. Chest tube placement by IR 05/09. 1. Sepsis sec to Pneumonia likely Bacterial Cultures with no growth so far lidoderm patch placed to left hemithorax for pain control Continue O2 via NC s/p left thoracentesis Continue Meropenem , Vancomycin IV and Azithro Sputum Gram stain : mod gram + cocci in chains Pleural fluid c/s : neg so far 2. LLL Pneumonia with large pleural effusion Ct chest showed large pleural effusion , atelectasis On vanco and Zosyn IV since admission ID consulted since WBC continued to trend up Zosyn changed to Meropenem IV S/p thoracentesis with removal of 60 ml fluid 05/05 s/p Chest tube placement 05/09 with IR Pulmonary consulted Dr. Parker O2 supplement 2LPM via NC 3. Pedal Edema- resolved venous doppler negative for DVT 4.Depression Psych consulted patient refuses medical management 5. Lice infestation decontaminated in ER received Permethrin 6. DVt prophylaxis Lovenox
[2017-05-10 07:33] LABS: BLOOD UREA NITROGEN 12 mg/dl (9-20); CALCIUM 9.1 mg/dL (8.4-10.2); GFR AFRICAN-AMERICAN > 60; GFR NON-AFRICAN AMERICAN > 60
[2017-05-10] MEDS: Pantoprazole 40 mg EC Tab PO SCH (08:49)
[2017-05-10] MEDS: Lidocaine 5% Patch TD SCH (08:50)
[2017-05-10 09:18] LABS: EOSINOPHIL 1 % (0-7); LYMPHOCYTE 10 % (20-50); MONOCYTE 7 % (0-10); NEUTROPHIL 82 % (42-75); TOTAL CELLS COUNTED 100
[2017-05-10 09:19] LABS: ANISOCYTOSIS SLIGHT; LARGE PLATELETS PRESENT; PLATELET ESTIMATE INCREASED (NORMAL)
[2017-05-11] MEDS: Meropenem 1 GM in Sodium Chloride 0.9% 100 ML IVPB SCH ×3 (01:14→17:38)
[2017-05-11 07:08] LABS: HEMOGLOBIN 12.3 g/dL (12.0-18.0); MEAN CELL VOLUME 86.3 fl (80.0-94.0); MEAN CORPUSCULAR HEMOGLOBIN 29.2 pg (27.0-31.0); MEAN CORPUSCULAR HGB CONC 33.8 g/dL (33.0-37.0); RBC 4.23 Mil/uL (4.40-5.90); RED CELL DISTRIBUTION WIDTH 15.3 % (11.5-14.5); WHITE BLOOD COUNT 10.8 K/uL (4.8-10.8)
[2017-05-11 07:09] LABS: BLOOD UREA NITROGEN 13 mg/dl (9-20); CALCIUM 9.3 mg/dL (8.4-10.2); GFR AFRICAN-AMERICAN > 60; GFR NON-AFRICAN AMERICAN > 60
--- NOTE | 2017-05-11 09:45 | CP.PCM.PN ---
Subjective - Date & Time of Evaluation Date of Evaluation: 05/11/17 Time of Evaluation: 09:44 - Subjective Subjective: pt doing well this morning CT out 250cc hd stable, NAD, dypsnea improved wbc normalized Objective - Vital Signs/Intake and Output Vital Signs (last 24 hours): Temp Pulse Resp BP Pulse Ox 98.3 F 70 19 105/67 98 05/11/17 07:36 05/11/17 07:36 05/11/17 07:36 05/11/17 07:36 05/11/17 07:36 Vitals Reviewed GEN: WDWN, alert, cooperative HEENT: NCAT, PERRL, EOMI HEART: RRR, +S1S2, NO MRG LUNG: CTAB, NO WRR +CHEST TUBE IN PLACE ABD: soft, NT, ND, No HSM, No masses EXT: normal pedal pulses, normal capillary refill NEURO: awake, alert, no focal deficits SKIN: warm, dry PSYCH: normal mood, normal affect Intake and Output: 05/11/17 05/11/17 06:59 18:59 Output Total 6 Balance -6 - Medications Medications: Current Medications Acetaminophen (Tylenol 325mg Tab) 650 mg PO Q6 PRN PRN Reason: Fever >100.4 F Last Admin: 05/03/17 04:54 Dose: 650 mg Acetaminophen (Tylenol 325mg Tab) 650 mg PO Q6 PRN PRN Reason: Pain, Mild (1-3) Last Admin: 05/04/17 22:05 Dose: 650 mg Albuterol/Ipratropium (Duoneb 3 Mg/0.5 Mg (3 Ml) Ud) 3 ml INH RQ6 PRN PRN Reason: Shortness of Breath Last Admin: 05/03/17 23:30 Dose: 3 ml Enoxaparin Sodium (Lovenox) 40 mg SC DAILY DERRICK PRN Reason: Protocol Last Admin: 05/09/17 09:29 Dose: 40 mg Guaifenesin/Dextromethorphan (Robitussin Dm) 10 ml PO Q6 PRN PRN Reason: Cough Last Admin: 05/08/17 09:11 Dose: 10 ml Meropenem 1 gm/ Sodium (Chloride) 100 mls @ 100 mls/hr IVPB Q8 DERRICK PRN Reason: Protocol Last Admin: 05/11/17 01:14 Dose: 100 mls/hr Sodium Chloride (Sodium Chloride 0.9%) 1,000 mls @ 100 mls/hr IV .Q10H [facility]ERRICK Last Admin: 05/10/17 22:00 Dose: Not Given Lidocaine (Lidoderm) 1 ea TD DAILY [facility] Last Admin: 05/10/17 08:50 Dose: 1 ea Pantoprazole Sodium (Protonix Ec Tab) 40 mg PO DAILY [facility] Last Admin: 05/10/17 08:49 Dose: 40 mg - Labs Labs: 05/11/17 05:25 05/11/17 05:25 PT 15.3 Seconds (9.8-13.1) H 05/05/17 11:45 INR 1.4 (0.9-1.2) H 05/05/17 11:45 Assessment and Plan - Assessment and Plan (Free Text) Plan: 36 yo male with history of Depression came in complaining of fever associated with left sided chest pain and cough productive with green sputum 3 days ago. Patient not a very good historian , with flat affect. Complains of pain. CXR showed left pleural effusion. He was febrile with Tmax 102.2 , WBc 28 K, tachycardic. Patient admitted for sepsis secondary to pneumonia and large pleural effusion. He was started initially on Vanco and Zosyn IV . His WBC started trending up despite broad spectrum antibiotics. Pulmonary and ID consulted . Antibiotics changed to Meropenem and Vancomycin on 05/04. Left thoracentesis by IR 05/05. Chest tube placement by IR 05/09. 1. Sepsis sec to Pneumonia likely Bacterial Cultures with no growth so far lidoderm patch placed to left hemithorax for pain control Continue O2 via NC s/p left thoracentesis Continue Meropenem , Vancomycin IV and Azithro Sputum Gram stain : mod gram + cocci in chains Pleural fluid c/s : neg so far 2. LLL Pneumonia with large pleural effusion Ct chest showed large pleural effusion , atelectasis On vanco and Zosyn IV since admission ID consulted since WBC continued to trend up Zosyn changed to Meropenem IV S/p thoracentesis with removal of 60 ml fluid 05/05 s/p Chest tube placement 05/09 with IR - 250cc out Pulmonary consulted Dr. Parker O2 supplement 2LPM via NC 3. Pedal Edema- resolved venous doppler negative for DVT 4.Depression Psych consulted patient refuses medical management 5. Lice infestation decontaminated in ER received Permethrin 6. DVt prophylaxis Lovenox
[2017-05-11] MEDS: Pantoprazole 40 mg EC Tab PO SCH (10:09)
[2017-05-11] MEDS: Lidocaine 5% Patch TD SCH (10:09)
[2017-05-11] MEDS: Enoxaparin 40 mg Syringe SC SCH (17:38)
[2017-05-12] MEDS: Sodium Chloride 0.9% 1,000 ML IV SCH ×2 (03:00→23:39)
[2017-05-12 06:40] LABS: HEMOGLOBIN 12.2 g/dL (12.0-18.0); MEAN CELL VOLUME 86.2 fl (80.0-94.0); MEAN CORPUSCULAR HEMOGLOBIN 29.5 pg (27.0-31.0); MEAN CORPUSCULAR HGB CONC 34.2 g/dL (33.0-37.0); RBC 4.13 Mil/uL (4.40-5.90); RED CELL DISTRIBUTION WIDTH 15.3 % (11.5-14.5); WHITE BLOOD COUNT 9.8 K/uL (4.8-10.8)
[2017-05-12] MEDS: Lidocaine 5% Patch TD SCH (10:17)
[2017-05-12] MEDS: Enoxaparin 40 mg Syringe SC SCH (10:19)
[2017-05-12] MEDS: Pantoprazole 40 mg EC Tab PO SCH (10:20)
--- NOTE | 2017-05-12 13:02 | CP.PCM.PN ---
Subjective - Date & Time of Evaluation Date of Evaluation: 05/12/17 Time of Evaluation: 11:30 - Subjective Subjective: Patient seen and examined bedside. Feeling well. Lying in bed with flat affect and in NAD.No acute issues overnight,. Hemodynamically stable, afebrile WBC trended down to 9.8 CT chest repeated Today showed :1. Modest decrease in left pleural effusion. Pigtail catheter this is in the lateral left costophrenic sulcus and maybe a need to be repositioned for optimal placement necessary diffuse dilatation drainage of the persistent larger partially loculated left pleural effusion. 2. Modest interval improved aeration of the left lung. 3. Small pericardial effusion. Objective - Vital Signs/Intake and Output Vital Signs (last 24 hours): Temp Pulse Resp BP Pulse Ox 97.2 F L 69 19 107/66 98 05/12/17 07:51 05/12/17 07:51 05/12/17 07:51 05/12/17 07:51 05/12/17 07:51 Intake and Output: 05/12/17 05/12/17 06:59 18:59 Intake Total 590 Output Total 1205 Balance -615 - Medications Medications: Current Medications Acetaminophen (Tylenol 325mg Tab) 650 mg PO Q6 PRN PRN Reason: Fever >100.4 F Last Admin: 05/12/17 10:37 Dose: 650 mg Acetaminophen (Tylenol 325mg Tab) 650 mg PO Q6 PRN PRN Reason: Pain, Mild (1-3) Last Admin: 05/04/17 22:05 Dose: 650 mg Albuterol/Ipratropium (Duoneb 3 Mg/0.5 Mg (3 Ml) Ud) 3 ml INH RQ6 PRN PRN Reason: Shortness of Breath Last Admin: 05/03/17 23:30 Dose: 3 ml Enoxaparin Sodium (Lovenox) 40 mg SC DAILY DERRICK PRN Reason: Protocol Last Admin: 05/12/17 10:19 Dose: 40 mg Guaifenesin/Dextromethorphan (Robitussin Dm) 10 ml PO Q6 PRN PRN Reason: Cough Last Admin: 05/08/17 09:11 Dose: 10 ml Sodium Chloride (Sodium Chloride 0.9%) 1,000 mls @ 100 mls/hr IV .Q10H [facility] Last Admin: 05/12/17 03:00 Dose: Not Given Vancomycin HCl 1 gm/ Sodium (Chloride) 250 mls @ 166.667 mls/hr IVPB Q12 DERRICK PRN Reason: Protocol Last Admin: 05/12/17 11:42 Dose: 166.667 mls/hr Lidocaine (Lidoderm) 1 ea TD DAILY [facility] Last Admin: 05/12/17 10:17 Dose: 1 ea Pantoprazole Sodium (Protonix Ec Tab) 40 mg PO DAILY [facility] Last Admin: 05/12/17 10:20 Dose: 40 mg - Labs Labs: 05/12/17 05:55 05/11/17 05:25 PT 15.3 Seconds (9.8-13.1) H 05/05/17 11:45 INR 1.4 (0.9-1.2) H 05/05/17 11:45 - Constitutional Appears: Non-toxic, No Acute Distress - Head Exam Head Exam: ATRAUMATIC, NORMAL INSPECTION, NORMOCEPHALIC - Eye Exam Eye Exam: EOMI, Normal appearance, PERRL Pupil Exam: NORMAL ACCOMODATION - ENT Exam ENT Exam: Mucous Membranes Moist, Normal Exam - Respiratory Exam Respiratory Exam: Decreased Breath Sounds (left hemithorax ). absent: Accessory Muscle Use, Rhonchi, Wheezes, Respiratory Distress - Cardiovascular Exam Cardiovascular Exam: REGULAR RHYTHM, RRR, +S1, +S2. absent: JVD - GI/Abdominal Exam GI & Abdominal Exam: Soft, Normal Bowel Sounds. absent: Distended, Guarding, Rebound - Rectal Exam Rectal Exam: Deferred - Extremities Exam Extremities Exam: Full ROM, Normal Capillary Refill, Normal Inspection. absent : Calf Tenderness, Pedal Edema - Back Exam Back Exam: NORMAL INSPECTION - Neurological Exam Neurological Exam: Alert, Awake, CN II-XII Intact, Oriented x3 - Psychiatric Exam Psychiatric exam: Flat Affect - Skin Skin Exam: Dry, Intact, Normal Color, Warm Assessment and Plan - Assessment and Plan (Free Text) Assessment: 36 yo male with history of Depression came in complaining of fever associated with left sided chest pain and cough productive with green sputum 3 days ago. Patient not a very good historian , with flat affect. Complains of pain. CXR showed left pleural effusion. He was febrile with Tmax 102.2 , WBc 28 K, tachycardic. Patient admitted for sepsis secondary to pneumonia and large pleural effusion. He was started initially on Vanco and Zosyn IV . His WBC started trending up despite broad spectrum antibiotics. Pulmonary and ID consulted . Antibiotics changed to Meropenem and Vancomycin on 05/04. CT chest showed large loculated left pleural effusion but patient initially refused to have chest tube placed underwent left thoracenthesis on 05/05 and chest tube placement on 05/09. Clinically showing some improvemnet, WBC trending down from 25 k -- 9.8 K , afebrile Repeat CT chest today showed minimal improvement 1. Modest decrease in left pleural effusion. Pigtail catheter this is in the lateral left costophrenic sulcus and maybe a need to be repositioned for optimal placement necessary diffuse dilatation drainage of the persistent larger partially loculated left pleural effusion. 2. Modest interval improved aeration of the left lung. 3. Small pericardial effusion. Patient feeling a little better 1. Sepsis sec to Pneumonia likely Bacterial Cultures with no growth so far lidoderm patch placed to left hemithorax for pain control Continue O2 via NC s/p left thoracentesis and chest tube placement with pleural fluid showing exudate Continue Meropenem , Vancomycin IV . Zithromax discontinued Check vanco levels repeat CT chest today showed modest decrease in pleural effusion . Will re consult IR for possible repositioning of chest tube 2. LLL Pneumonia with large pleural effusion Ct chest showed large pleural effusion , atelectasis Was vanco and Zosyn IV in admission and later changed to Vanco , Meropenem and Zithromax since WBC continued trending up Currently s/p left chest tube placement pleural fluid showed exudate.Cultures negative so far On Meropenem and Vanco IV for now Repeat CT chest showed modest improvement of pleural effusion. Will re consult IR for possible repositioning of chest tbe ID and pulmonary on consult Continue O2 via NC PRN 3. Pedal Edema- resolved venous doppler negative for DVT 4.Depression Psych consulted patient refuses medical management 5. Lice infestation decontaminated in ER received Permethrin 6. DVt prophylaxis Lovenox
--- NOTE | 2017-05-12 15:05 | CT ---
PROCEDURE: CT Chest without contrast HISTORY: left pleural effusion Relevant interventional procedure(s): 05/06/2017 ultrasound-directed thoracentesis COMPARISON: 05/03/2017 CT Angio thorax 03/27/2017 single-view chest 05/02/2017 single-view chest TECHNIQUE: Contiguous axial images were obtained through the chest without intravenous contrast enhancement. Sagittal and coronal reconstructions were performed. Radiation dose (DLP): 244.65 mGy-cm. This CT exam was performed using one or more of the following dose reduction techniques: Automated exposure control, adjustment of the mA and/or kV according to patient size, and/or use of iterative reconstruction technique. FINDINGS: LUNGS: Clear right lung. No suspicious pulmonary nodules, masses or infiltrates in the right lung. Compressive atelectasis affecting left lower lobe, left upper lobe. Of the remaining aerated left lung no suspicious pulmonary nodules, masses or infiltrates. MEDIASTINUM: No significant interval change compared to the prior examination(s). This includes slightly enlarged thymus, prominent anterior mediastinal soft tissue density. Trace pericardial effusion. Small lymph nodes again identified particularly in the AP window the preponderance of which appear to be less than 1 cm. . PLEURA: Persistent large right pleural effusion displace the presence of an indwelling pigtail catheter situated lateral left costophrenic sulcus. Modest interval improved aeration of previously consolidated left lower lobe and left upper lobe. No pleural fluid. No pneumothorax. BONES: No fracture. No destructive lesion. UPPER ABDOMEN: Grossly unremarkable. OTHER FINDINGS: None. IMPRESSION: 1. Modest decrease in left pleural effusion. Pigtail catheter this is in the lateral left costophrenic sulcus and maybe a need to be repositioned for optimal placement necessary diffuse dilatation drainage of the persistent larger partially loculated left pleural effusion. 2. Modest interval improved aeration of the left lung. 3. Small pericardial effusion.
[2017-05-12] MEDS: Meropenem 1 GM in Sodium Chloride 0.9% 100 ML IVPB SCH (17:54)
[2017-05-13] MEDS: Meropenem 1 GM in Sodium Chloride 0.9% 100 ML IVPB SCH ×3 (01:07→17:46)
[2017-05-13] MEDS: Sodium Chloride 0.9% 1,000 ML IV SCH ×3 (05:19→09:08)
[2017-05-13 07:10] LABS: HEMOGLOBIN 11.3 g/dL (12.0-18.0); MEAN CELL VOLUME 87.2 fl (80.0-94.0); MEAN CORPUSCULAR HEMOGLOBIN 29.1 pg (27.0-31.0); MEAN CORPUSCULAR HGB CONC 33.4 g/dL (33.0-37.0); RBC 3.89 Mil/uL (4.40-5.90); RED CELL DISTRIBUTION WIDTH 15.2 % (11.5-14.5); WHITE BLOOD COUNT 9.1 K/uL (4.8-10.8)
[2017-05-13 07:24] LABS: BLOOD UREA NITROGEN 18 mg/dl (9-20); CALCIUM 9.1 mg/dL (8.4-10.2); GFR AFRICAN-AMERICAN > 60; GFR NON-AFRICAN AMERICAN > 60
[2017-05-13] MEDS: Lidocaine 5% Patch TD SCH (09:03)
[2017-05-13] MEDS: Enoxaparin 40 mg Syringe SC SCH (09:05)
[2017-05-13] MEDS: Pantoprazole 40 mg EC Tab PO SCH (09:06)
--- NOTE | 2017-05-13 12:48 | CP.PCM.PN ---
Subjective - Date & Time of Evaluation Date of Evaluation: 05/13/17 Time of Evaluation: 11:30 - Subjective Subjective: patient seen and examined bedside. Feeling better . Hemodynamically stable, afebrile No acute issues overnight with flat affect Chest tube to left hemithorax with only 5 ml output yesterday during the day and no output overnight(last 12 hours) while on intermittent suction Repeat CT chest showed only modest improvement of left pleural effusion. IR re consulted and case discussed with Dr Lazaro who will evaluate patient Objective - Vital Signs/Intake and Output Vital Signs (last 24 hours): Temp Pulse Resp BP Pulse Ox 98.2 F 67 20 109/65 98 05/13/17 07:47 05/13/17 07:47 05/13/17 07:47 05/13/17 07:47 05/13/17 07:47 Intake and Output: 05/13/17 05/13/17 06:59 18:59 Intake Total 1550 Output Total 1315 Balance 235 - Medications Medications: Current Medications Acetaminophen (Tylenol 325mg Tab) 650 mg PO Q6 PRN PRN Reason: Fever >100.4 F Last Admin: 05/12/17 10:37 Dose: 650 mg Acetaminophen (Tylenol 325mg Tab) 650 mg PO Q6 PRN PRN Reason: Pain, Mild (1-3) Last Admin: 05/13/17 05:15 Dose: 650 mg Albuterol/Ipratropium (Duoneb 3 Mg/0.5 Mg (3 Ml) Ud) 3 ml INH RQ6 PRN PRN Reason: Shortness of Breath Last Admin: 05/03/17 23:30 Dose: 3 ml Enoxaparin Sodium (Lovenox) 40 mg SC DAILY [facility]ICK PRN Reason: Protocol Last Admin: 05/13/17 09:05 Dose: 40 mg Guaifenesin/Dextromethorphan (Robitussin Dm) 10 ml PO Q6 PRN PRN Reason: Cough Last Admin: 05/08/17 09:11 Dose: 10 ml Sodium Chloride (Sodium Chloride 0.9%) 1,000 mls @ 100 mls/hr IV .Q10H [facility] Last Admin: 05/13/17 09:08 Dose: Not Given Vancomycin HCl 1 gm/ Sodium (Chloride) 250 mls @ 166.667 mls/hr IVPB Q12 [facility]ERRICK PRN Reason: Protocol Last Admin: 05/13/17 09:06 Dose: 166.667 mls/hr Meropenem 1 gm/ Sodium (Chloride) 100 mls @ 100 mls/hr IVPB Q8 DERRICK PRN Reason: Protocol Last Admin: 05/13/17 09:05 Dose: 100 mls/hr Lidocaine (Lidoderm) 1 ea TD DAILY [facility] Last Admin: 05/13/17 09:03 Dose: 1 ea Pantoprazole Sodium (Protonix Ec Tab) 40 mg PO DAILY [facility] Last Admin: 05/13/17 09:06 Dose: 40 mg - Labs Labs: 05/13/17 05:30 05/13/17 05:30 PT 15.3 Seconds (9.8-13.1) H 05/05/17 11:45 INR 1.4 (0.9-1.2) H 05/05/17 11:45 - Constitutional Appears: Non-toxic, No Acute Distress - Head Exam Head Exam: ATRAUMATIC, NORMAL INSPECTION, NORMOCEPHALIC - Eye Exam Eye Exam: EOMI, Normal appearance, PERRL Pupil Exam: NORMAL ACCOMODATION - ENT Exam ENT Exam: Mucous Membranes Moist, Normal Exam - Neck Exam Neck Exam: Full ROM, Normal Inspection - Respiratory Exam Respiratory Exam: Decreased Breath Sounds (left hemithorax ), NORMAL BREATHING PATTERN. absent: Accessory Muscle Use, Rhonchi, Wheezes, Respiratory Distress - Cardiovascular Exam Cardiovascular Exam: REGULAR RHYTHM, RRR, +S1, +S2. absent: JVD - GI/Abdominal Exam GI & Abdominal Exam: Soft, Normal Bowel Sounds. absent: Distended, Guarding, Tenderness, Rebound - Rectal Exam Rectal Exam: Deferred - Extremities Exam Extremities Exam: Full ROM, Normal Capillary Refill, Normal Inspection. absent : Calf Tenderness, Pedal Edema - Back Exam Back Exam: NORMAL INSPECTION - Neurological Exam Neurological Exam: Alert, Awake, CN II-XII Intact, Oriented x3 - Psychiatric Exam Psychiatric exam: Flat Affect - Skin Skin Exam: Dry, Normal Color, Warm Assessment and Plan - Assessment and Plan (Free Text) Assessment: 36 yo male with history of Depression came in complaining of fever associated with left sided chest pain and cough productive with green sputum 3 days ago. Patient not a very good historian , with flat affect. Complained of pain. CXR showed left pleural effusion. He was febrile with Tmax 102.2 , WBc 28 K, tachycardic. Patient admitted for sepsis secondary to pneumonia and large pleural effusion. He was started initially on Vanco and Zosyn IV . His WBC started trending up despite broad spectrum antibiotics. Pulmonary and ID consulted . Antibiotics changed to Meropenem and Vancomycin on 05/04. CT chest showed large loculated left pleural effusion but patient initially refused to have chest tube placed. He underwent left thoracenthesis on 05/05 and chest tube placement on 05/09. Clinically showing some improvemnet, WBC trending down from 25 k -- 9 K , afebrile Repeat CT chest yesterday showed minimal improvement 1. Modest decrease in left pleural effusion. Pigtail catheter this is in the lateral left costophrenic sulcus and maybe a need to be repositioned for optimal placement necessary diffuse dilatation drainage of the persistent larger partially loculated left pleural effusion. 2. Modest interval improved aeration of the left lung. 3. Small pericardial effusion. With no output from chest tube last 12 hours. IR re consulted and discussed with Dr. Lazaro Patient feeling a little better 1. Sepsis sec to Pneumonia likely Bacterial Cultures with no growth so far lidoderm patch placed to left hemithorax for pain control Continue O2 via NC PRN s/p left thoracentesis and chest tube placement with pleural fluid showing exudate Continue Meropenem , Vancomycin IV . Zithromax discontinued Vanco levels [address] chest 05/12 showed modest decrease in pleural effusion . IR re cosnulted and case discussed with Dr. Lazaro for possible repositioning of chest tube or bigger CT placement . pig tail flushed and placed on continuos suction for now. IR will evaluate patient 2. LLL Pneumonia with large pleural effusion CT chest showed large pleural effusion , atelectasis Was vanco and Zosyn IV in admission and later changed to Vanco , Meropenem and Zithromax since WBC continued trending up Currently s/p left chest tube placement pleural fluid showed exudate.Cultures negative so far On Meropenem and Vanco IV for now Repeat CT chest 05/12 showed modest improvement of pleural effusion. IR re consulted ID and pulmonary on consult Continue O2 via NC PRN 3. Pedal Edema- resolved venous doppler negative for DVT 4.Depression Psych consulted patient refuses medical management 5. Lice infestation decontaminated in ER received Permethrin 6. DVt prophylaxis Lovenox
--- NOTE | 2017-05-13 13:44 | US ---
PROCEDURE: Date of procedure: 05/09/2017 Procedure: 1. Placement of a left chest tube with CT guidance Medications: 1 percent lidocaine, IV sedation administered by the anesthesiologist. Radiation: 435.94 mGy-cm HISTORY: Large loculated left pleural effusion TECHNIQUE: Following informed consent and procedure time-out, the patient's left anterior chest was marked, prepped and draped in the usual sterile fashion. Ultrasound showed a large loculated left pleural effusion. After the skin was anesthetized with 1% lidocaine and the Pt was sedated by the anesthesiologist, a [place] catheter was advanced under ultrasound guidance into the pleural space. The catheter was exchanged over an 035 guidewire and tract was dilated to accommodate a 8.5 [place] pigtail catheter formed within the pleural space. There is return of slight serosanguinous fluid. The catheter was secured to patient's skin. A xeroform dressing was applied. The catheter was then attached to a pleurovac. Postprocedure x-ray showed a left chest tube. IMPRESSION: Placement of an 8.5 [place] left chest tube. There were no immediate complications.
[2017-05-14] MEDS: Meropenem 1 GM in Sodium Chloride 0.9% 100 ML IVPB SCH ×3 (00:17→16:36)
[2017-05-14 06:47] LABS: HEMOGLOBIN 12.1 g/dL (12.0-18.0); MEAN CELL VOLUME 86.6 fl (80.0-94.0); MEAN CORPUSCULAR HGB CONC 33.5 g/dL (33.0-37.0); RBC 4.18 Mil/uL (4.40-5.90); WHITE BLOOD COUNT 8.9 K/uL (4.8-10.8)
[2017-05-14 06:48] LABS: BLOOD UREA NITROGEN 15 mg/dl (9-20); GFR AFRICAN-AMERICAN > 60; GFR NON-AFRICAN AMERICAN > 60
[2017-05-14 07:22] LABS: INR 1.2 (0.9-1.2); PROTHROMBIN TIME 13.1 Seconds (9.8-13.1)
--- NOTE | 2017-05-14 07:55 | CP.PCM.PN ---
Subjective - Date & Time of Evaluation Date of Evaluation: 05/14/17 Time of Evaluation: 07:55 - Subjective Subjective: doing well this morning, no apparent dyspnea flat affect, however less guarded this morning for CT today with IR to replace pigtail HD stable NAD Objective - Vital Signs/Intake and Output Vital Signs (last 24 hours): Temp Pulse Resp BP Pulse Ox 98 F 79 20 101/62 97 05/14/17 00:29 05/14/17 00:29 05/14/17 00:29 05/14/17 00:29 05/14/17 00:29 - Medications Medications: Current Medications Acetaminophen (Tylenol 325mg Tab) 650 mg PO Q6 PRN PRN Reason: Fever >100.4 F Last Admin: 05/12/17 10:37 Dose: 650 mg Acetaminophen (Tylenol 325mg Tab) 650 mg PO Q6 PRN PRN Reason: Pain, Mild (1-3) Last Admin: 05/13/17 05:15 Dose: 650 mg Albuterol/Ipratropium (Duoneb 3 Mg/0.5 Mg (3 Ml) Ud) 3 ml INH RQ6 PRN PRN Reason: Shortness of Breath Last Admin: 05/03/17 23:30 Dose: 3 ml Enoxaparin Sodium (Lovenox) 40 mg SC DAILY [facility] PRN Reason: Protocol Last Admin: 05/13/17 09:05 Dose: 40 mg Guaifenesin/Dextromethorphan (Robitussin Dm) 10 ml PO Q6 PRN PRN Reason: Cough Last Admin: 05/08/17 09:11 Dose: 10 ml Sodium Chloride (Sodium Chloride 0.9%) 1,000 mls @ 100 mls/hr IV .Q10H [facility] Last Admin: 05/13/17 09:08 Dose: Not Given Vancomycin HCl 1 gm/ Sodium (Chloride) 250 mls @ 166.667 mls/hr IVPB Q12 [facility]ICK PRN Reason: Protocol Last Admin: 05/13/17 21:26 Dose: 166.667 mls/hr Meropenem 1 gm/ Sodium (Chloride) 100 mls @ 100 mls/hr IVPB Q8 [facility] PRN Reason: Protocol Last Admin: 05/14/17 00:17 Dose: 100 mls/hr Lidocaine (Lidoderm) 1 ea TD DAILY [facility] Last Admin: 05/13/17 09:03 Dose: 1 ea Pantoprazole Sodium (Protonix Ec Tab) 40 mg PO DAILY [facility] Last Admin: 05/13/17 09:06 Dose: 40 mg - Labs Labs: 05/14/17 05:50 05/14/17 05:50 PT 13.1 Seconds (9.8-13.1) 05/14/17 05:50 INR 1.2 (0.9-1.2) 05/14/17 05:50 - Constitutional Appears: Non-toxic, No Acute Distress - Head Exam Head Exam: ATRAUMATIC, NORMOCEPHALIC - Eye Exam Eye Exam: EOMI, Normal appearance, PERRL Pupil Exam: NORMAL ACCOMODATION - ENT Exam ENT Exam: Mucous Membranes Moist, Normal Oropharynx - Respiratory Exam Respiratory Exam: Clear to Ausculation Bilateral, NORMAL BREATHING PATTERN - Cardiovascular Exam Cardiovascular Exam: RRR, +S1, +S2 - GI/Abdominal Exam GI & Abdominal Exam: Soft, Normal Bowel Sounds. absent: Tenderness, Organomegaly - Extremities Exam Extremities Exam: Full ROM, Normal Capillary Refill - Back Exam Back Exam: absent: CVA tenderness (L), CVA tenderness (R) - Neurological Exam Neurological Exam: Alert, Awake - Psychiatric Exam Psychiatric exam: Flat Affect, Normal Mood - Skin Skin Exam: Dry, Warm Assessment and Plan - Assessment and Plan (Free Text) Plan: 36 yo male with history of Depression came in complaining of fever associated with left sided chest pain and cough productive with green sputum 3 days ago. Patient not a very good historian , with flat affect. Complained of pain. CXR showed left pleural effusion. He was febrile with Tmax 102.2 , WBc 28 K, tachycardic. Patient admitted for sepsis secondary to pneumonia and large pleural effusion. He was started initially on Vanco and Zosyn IV . His WBC started trending up despite broad spectrum antibiotics. Pulmonary and ID consulted . Antibiotics changed to Meropenem and Vancomycin on 05/04. CT chest showed large loculated left pleural effusion but patient initially refused to have chest tube placed. He underwent left thoracenthesis on 05/05 and chest tube placement on 05/09. Clinically showing some improvemnet, WBC trending down from 25 k -- 9 K , afebrile Repeat CT chest yesterday showed minimal improvement 1. Modest decrease in left pleural effusion. Pigtail catheter this is in the lateral left costophrenic sulcus and maybe a need to be repositioned for optimal placement necessary diffuse dilatation drainage of the persistent larger partially loculated left pleural effusion. 2. Modest interval improved aeration of the left lung. 3. Small pericardial effusion. With no output from chest tube last 12 hours. IR re consulted and discussed with Dr. Lazaro Patient feeling a little better , for Chest tube replacement today wtih IR 1. Sepsis sec to Pneumonia likely Bacterial Cultures with no growth so far lidoderm patch placed to left hemithorax for pain control Continue O2 via NC PRN s/p left thoracentesis and chest tube placement with pleural fluid showing exudate Continue Meropenem , Vancomycin IV . Zithromax discontinued Vanco levels [address] chest 05/12 showed modest decrease in pleural effusion . IR re cosnulted and case discussed with Dr. Lazaro for possible repositioning of chest tube or bigger CT placement . pig tail flushed and placed on continuos suction for now. IR will evaluate patient, for replacement today 2. LLL Pneumonia with large pleural effusion CT chest showed large pleural effusion , atelectasis Was vanco and Zosyn IV in admission and later changed to Vanco , Meropenem and Zithromax since WBC continued trending up Currently s/p left chest tube placement pleural fluid showed exudate.Cultures negative so far On Meropenem and Vanco IV for now Repeat CT chest 05/12 showed modest improvement of pleural effusion. IR re consulted ID and pulmonary on consult Continue O2 via NC PRN 3. Pedal Edema- resolved venous doppler negative for DVT 4.Depression Psych consulted patient refuses medical management 5. Lice infestation decontaminated in ER received Permethrin 6. DVt prophylaxis Lovenox
[2017-05-14] MEDS: Pantoprazole 40 mg EC Tab PO SCH (09:10)
[2017-05-14] MEDS: Lidocaine 5% Patch TD SCH (09:11)
[2017-05-14] MEDS ORDERED: Midazolam 2 MG/2 ML VIAL ONE ×2 (14:05→14:08)
[2017-05-14] MEDS ORDERED: Lidocaine Hydrochloride 1% 10 ML ONE (14:15)
--- NOTE | 2017-05-14 14:25 | PCM.SURG1 ---
Surgeon's Initial Post Op Note - Surgeon's Notes Surgeon: Michael Blake MD Take Out Waitress: NONE Type of Anesthesia: IV Sedation Pre-Operative Diagnosis: Loculated left pleural effusion Operative Findings: 8 fr left pleural pigtail catheter removed. 10 fr pigtail placed. 20 cc of purulent drainage removed. Post-Operative Diagnosis: Loculated left pleural effusion Operation Performed: Left pleural drainage catheter upsized to a 10 fr catheter. Purulent drainage was aspirated. Specimen/Specimens Removed: 20 cc of purulent drainage. Estimated Blood Loss: EBL {In ML}: 1 Blood Products Given: N/A Drains Used: No Drains Post-Op Condition: Fair Date of Surgery/Procedure: 05/14/17 Time of Surgery/Procedure: 14:20
[2017-05-14] MEDS: Sodium Chloride 0.9% 1,000 ML IV SCH (14:30)
[2017-05-15 06:20] LABS: HEMOGLOBIN 11.9 g/dL (12.0-18.0); MEAN CELL VOLUME 86.3 fl (80.0-94.0); MEAN CORPUSCULAR HEMOGLOBIN 28.6 pg (27.0-31.0); MEAN CORPUSCULAR HGB CONC 33.2 g/dL (33.0-37.0); RBC 4.16 Mil/uL (4.40-5.90); RED CELL DISTRIBUTION WIDTH 15.4 % (11.5-14.5); WHITE BLOOD COUNT 6.5 K/uL (4.8-10.8)
[2017-05-15 06:29] LABS: BLOOD UREA NITROGEN 17 mg/dl (9-20); CALCIUM 9.2 mg/dL (8.4-10.2); GFR AFRICAN-AMERICAN > 60; GFR NON-AFRICAN AMERICAN > 60
--- NOTE | 2017-05-15 08:30 | CP.PCM.PN ---
Subjective - Date & Time of Evaluation Date of Evaluation: 05/15/17 Time of Evaluation: 08:30 - Subjective Subjective: pt comfortable no pain no dyspnea total 30 cc out from overngiht to this morning HD stable nad Objective - Vital Signs/Intake and Output Vital Signs (last 24 hours): Temp Pulse Resp BP Pulse Ox 98.2 F 91 H 19 98/63 L 97 05/15/17 08:10 05/15/17 08:10 05/15/17 08:10 05/15/17 08:10 05/15/17 08:10 Vitals Reviewed GEN: WDWN, alert, cooperative HEENT: NCAT, PERRL, EOMI HEART: RRR, +S1S2, NO MRG LUNG: CTAB, NO WRR, chest tube in place ABD: soft, NT, ND, No HSM, No masses EXT: normal pedal pulses, normal capillary refill NEURO: awake, alert, no focal deficits SKIN: warm, dry PSYCH: normal mood, normal affect Intake and Output: 05/15/17 05/15/17 06:59 18:59 Intake Total 2850 Output Total 3425 Balance -575 - Medications Medications: Current Medications Acetaminophen (Tylenol 325mg Tab) 650 mg PO Q6 PRN PRN Reason: Fever >100.4 F Last Admin: 05/12/17 10:37 Dose: 650 mg Acetaminophen (Tylenol 325mg Tab) 650 mg PO Q6 PRN PRN Reason: Pain, Mild (1-3) Last Admin: 05/14/17 19:58 Dose: 650 mg Albuterol/Ipratropium (Duoneb 3 Mg/0.5 Mg (3 Ml) Ud) 3 ml INH RQ6 PRN PRN Reason: Shortness of Breath Last Admin: 05/03/17 23:30 Dose: 3 ml Enoxaparin Sodium (Lovenox) 40 mg SC DAILY DERRICK PRN Reason: Protocol Last Admin: 05/13/17 09:05 Dose: 40 mg Guaifenesin/Dextromethorphan (Robitussin Dm) 10 ml PO Q6 PRN PRN Reason: Cough Last Admin: 05/08/17 09:11 Dose: 10 ml Sodium Chloride (Sodium Chloride 0.9%) 1,000 mls @ 100 mls/hr IV .Q10H [facility] Last Admin: 05/14/17 14:30 Dose: 0 mls Meropenem 1 gm/ Sodium (Chloride) 100 mls @ 100 mls/hr IVPB Q8 DERRICK PRN Reason: Protocol Last Admin: 05/15/17 00:00 Dose: 100 mls/hr Lidocaine (Lidoderm) 1 ea TD DAILY [facility] Last Admin: 05/14/17 09:11 Dose: 1 ea Pantoprazole Sodium (Protonix Ec Tab) 40 mg PO DAILY [facility] Last Admin: 05/14/17 09:10 Dose: Not Given - Labs Labs: 05/15/17 06:00 05/15/17 06:00 PT 13.1 Seconds (9.8-13.1) 05/14/17 05:50 INR 1.2 (0.9-1.2) 05/14/17 05:50 Assessment and Plan - Assessment and Plan (Free Text) Plan: 36 yo male with history of Depression came in complaining of fever associated with left sided chest pain and cough productive with green sputum 3 days ago. Patient not a very good historian , with flat affect. Complained of pain. CXR showed left pleural effusion. He was febrile with Tmax 102.2 , WBc 28 K, tachycardic. Patient admitted for sepsis secondary to pneumonia and large pleural effusion. He was started initially on Vanco and Zosyn IV . His WBC started trending up despite broad spectrum antibiotics. Pulmonary and ID consulted . Antibiotics changed to Meropenem and Vancomycin on 05/04. CT chest showed large loculated left pleural effusion but patient initially refused to have chest tube placed. He underwent left thoracenthesis on 05/05 and chest tube placement on 05/09. Clinically showing some improvemnet, WBC trending down from 25 k -- 9 K , afebrile Repeat CT chest yesterday showed minimal improvement 1. Modest decrease in left pleural effusion. Pigtail catheter this is in the lateral left costophrenic sulcus and maybe a need to be repositioned for optimal placement necessary diffuse dilatation drainage of the persistent larger partially loculated left pleural effusion. 2. Modest interval improved aeration of the left lung. 3. Small pericardial effusion. 1. Sepsis sec to Pneumonia likely Bacterial Cultures with no growth so far lidoderm patch placed to left hemithorax for pain control Continue O2 via NC PRN s/p left thoracentesis and chest tube placement with pleural fluid showing exudate Continue Meropenem , Vancomycin IV . Zithromax discontinued Vanco levels [address] chest 05/12 showed modest decrease in pleural effusion . IR reconsulted and case discussed with Dr. Lazaro. 2. LLL Pneumonia with large pleural effusion CT chest showed large pleural effusion , atelectasis Was vanco and Zosyn IV in admission and later changed to Vanco , Meropenem and Zithromax since WBC continued trending up Currently s/p left chest tube placement pleural fluid showed exudate.Cultures negative so far On Meropenem and Vanco IV for now Repeat CT chest 05/12 showed modest improvement of pleural effusion. IR re consulted ID and pulmonary on consult Continue O2 via NC PRN chest tube replaced yesterday, 20 cc out purulent during procedure reCT tomorrow and reevaluate, may need larger chest tube. 3. Pedal Edema- resolved venous doppler negative for DVT 4.Depression Psych consulted patient refuses medical management 5. Lice infestation decontaminated in ER received Permethrin 6. DVt prophylaxis Lovenox
[2017-05-15] MEDS: Meropenem 1 GM in Sodium Chloride 0.9% 100 ML IVPB SCH ×3 (08:46→15:59)
[2017-05-15] MEDS: Pantoprazole 40 mg EC Tab PO SCH (08:46)
[2017-05-15] MEDS: Lidocaine 5% Patch TD SCH (08:46)
[2017-05-16] MEDS: Meropenem 1 GM in Sodium Chloride 0.9% 100 ML IVPB SCH ×3 (00:43→16:42)
[2017-05-16 06:47] LABS: BLOOD UREA NITROGEN 17 mg/dl (9-20); CALCIUM 9.3 mg/dL (8.4-10.2); GFR AFRICAN-AMERICAN > 60; GFR NON-AFRICAN AMERICAN > 60
[2017-05-16 06:50] LABS: HEMOGLOBIN 12.7 g/dL (12.0-18.0); MEAN CELL VOLUME 85.5 fl (80.0-94.0); MEAN CORPUSCULAR HEMOGLOBIN 29.3 pg (27.0-31.0); MEAN CORPUSCULAR HGB CONC 34.3 g/dL (33.0-37.0); RBC 4.31 Mil/uL (4.40-5.90); RED CELL DISTRIBUTION WIDTH 15.4 % (11.5-14.5); WHITE BLOOD COUNT 4.8 K/uL (4.8-10.8)
[2017-05-16] MEDS: Lidocaine 5% Patch TD SCH (08:18)
[2017-05-16] MEDS: Pantoprazole 40 mg EC Tab PO SCH (08:19)
[2017-05-16] MEDS: Sodium Chloride 0.9% 1,000 ML IV SCH ×2 (08:25→18:52)
--- NOTE | 2017-05-16 11:25 | CP.PCM.PN ---
Subjective - Date & Time of Evaluation Date of Evaluation: 05/16/17 Time of Evaluation: 11:23 - Subjective Subjective: pt flat affect, answers questions willingly 12 cc out overnight re CT today #3 HD stable no apparent distress pain controlled Objective - Vital Signs/Intake and Output Vital Signs (last 24 hours): Temp Pulse Resp BP Pulse Ox 98 F 75 20 96/53 L 98 05/16/17 08:07 05/16/17 08:07 05/16/17 08:07 05/16/17 08:07 05/16/17 08:07 Vitals Reviewed GEN: WDWN, alert, cooperative HEENT: NCAT, PERRL, EOMI HEART: RRR, +S1S2, NO MRG LUNG: CTAB, NO WRR ABD: soft, NT, ND, No HSM, No masses EXT: normal pedal pulses, normal capillary refill NEURO: awake, alert, no focal deficits SKIN: warm, dry PSYCH: normal mood, normal affect - Medications Medications: Current Medications Acetaminophen (Tylenol 325mg Tab) 650 mg PO Q6 PRN PRN Reason: Fever >100.4 F Last Admin: 05/12/17 10:37 Dose: 650 mg Acetaminophen (Tylenol 325mg Tab) 650 mg PO Q6 PRN PRN Reason: Pain, Mild (1-3) Last Admin: 05/14/17 19:58 Dose: 650 mg Enoxaparin Sodium (Lovenox) 40 mg SC DAILY DERRICK PRN Reason: Protocol Last Admin: 05/13/17 09:05 Dose: 40 mg Guaifenesin/Dextromethorphan (Robitussin Dm) 10 ml PO Q6 PRN PRN Reason: Cough Last Admin: 05/08/17 09:11 Dose: 10 ml Sodium Chloride (Sodium Chloride 0.9%) 1,000 mls @ 100 mls/hr IV .Q10H [facility] Last Admin: 05/16/17 08:25 Dose: Not Given Meropenem 1 gm/ Sodium (Chloride) 100 mls @ 100 mls/hr IVPB Q8 [facility] PRN Reason: Protocol Last Admin: 05/16/17 08:20 Dose: 100 mls/hr Vancomycin HCl 1 gm/ Sodium (Chloride) 250 mls @ 166.667 mls/hr IVPB Q12 [facility] PRN Reason: Protocol Last Admin: 05/16/17 08:20 Dose: 166.667 mls/hr Lidocaine (Lidoderm) 1 ea TD DAILY [facility] Last Admin: 05/16/17 08:18 Dose: 1 ea Pantoprazole Sodium (Protonix Ec Tab) 40 mg PO DAILY [facility] Last Admin: 05/16/17 08:19 Dose: 40 mg - Labs Labs: 05/16/17 05:25 05/16/17 05:25 PT 13.1 Seconds (9.8-13.1) 05/14/17 05:50 INR 1.2 (0.9-1.2) 05/14/17 05:50 Assessment and Plan - Assessment and Plan (Free Text) Plan: 36 yo male with history of Depression came in complaining of fever associated with left sided chest pain and cough productive with green sputum 3 days ago. Patient not a very good historian , with flat affect. Complained of pain. CXR showed left pleural effusion. He was febrile with Tmax 102.2 , WBc 28 K, tachycardic. Patient admitted for sepsis secondary to pneumonia and large pleural effusion. He was started initially on Vanco and Zosyn IV . His WBC started trending up despite broad spectrum antibiotics. Pulmonary and ID consulted . Antibiotics changed to Meropenem and Vancomycin on 05/04. CT chest showed large loculated left pleural effusion but patient initially refused to have chest tube placed. He underwent left thoracenthesis on 05/05 and chest tube placement on 05/09. Clinically showing some improvement, WBC trended down. Repeat CT chest #2 showed minimal improvement - Modest decrease in left pleural effusion, persistent larger partially loculated left pleural effusion. Repeat CT Chest #3 today. 1. Sepsis sec to Pneumonia likely Bacterial Cultures with no growth so far lidoderm patch placed to left hemithorax for pain control Continue O2 via NC PRN s/p left thoracentesis and chest tube placement with pleural fluid showing exudate Continue Meropenem, Vancomycin IV . Zithromax discontinued Vanco levels 14 2. LLL Pneumonia with large pleural effusion Initially CT chest showed large pleural effusion, atelectasis Was vanco and Zosyn IV on admission and later changed to Vanco, Meropenem and Zithromax since WBC continued trending up As of 05/16 pt has been afebrile, no wbc for about a week. Vancomycin - complete 14 day course today. Merrem - complete 14 day course in 2 days, stop date placed on order. 05/05 L thoracentesis 05/09 s/p left chest tube placement 05/[address] chest showed modest decrease in pleural effusion. IR reconsulted and case discussed with Dr. Lazaro 05/14 chest tube replaced, 20 cc out purulent during procedure, modest drainage, 12 cc overnight reCT today and reevaluate, may need larger chest tube. pleural fluid showed exudate. Cultures negative. ID and pulmonary on consult Continue O2 via NC PRN 3. Pedal Edema- resolved venous doppler negative for DVT 4.Depression Psych consulted patient refuses medical management 5. Lice infestation decontaminated in ER received Permethrin 6. DVt prophylaxis Lovenox
--- NOTE | 2017-05-16 12:39 | CT ---
PROCEDURE: CT Chest without contrast HISTORY: eval pleural effusion COMPARISON: CT chest dated 05/12/2017. TECHNIQUE: Contiguous axial images were obtained through the chest without intravenous contrast enhancement. Sagittal and coronal reconstructions were performed. Radiation dose (DLP): 249.7 mGy-cm. This CT exam was performed using one or more of the following dose reduction techniques: Automated exposure control, adjustment of the mA and/or kV according to patient size, and/or use of iterative reconstruction technique. FINDINGS: LUNGS: Right lung clear. Left upper and lower lobe atelectasis related to large persistent pleural effusion. MEDIASTINUM: Unremarkable thoracic aorta. No aneurysm. Normal sized heart. Small persistent pericardial effusion. Main pulmonary artery unremarkable. No vascular congestion. Stable appearance of anterior mediastinal soft tissue density. Stable appearance of small lymph nodes. PLEURA: Mild interval decrease of persistent large left pleural effusion despite the presence of indwelling pigtail catheter in the inferolateral sulcus. No pneumothorax. BONES: No fracture. No destructive lesion. UPPER ABDOMEN: Grossly unremarkable. OTHER FINDINGS: None. IMPRESSION: Mild interval decrease of persistent large left pleural effusion despite satisfactory position of indwelling pigtail catheter in the inferolateral sulcus. If the pigtail catheter is appropriately connected to wall suction, the lack of substantial decrease in fluid volume may be related to loculations within the pleural fluid. No other significant interval change.
[2017-05-17] MEDS: Meropenem 1 GM in Sodium Chloride 0.9% 100 ML IVPB SCH ×3 (00:20→17:06)
[2017-05-17] MEDS: Sodium Chloride 0.9% 1,000 ML IV SCH ×2 (03:30→10:34)
[2017-05-17 07:59] LABS: HEMOGLOBIN 11.4 g/dL (12.0-18.0)
[2017-05-17 08:08] LABS: MEAN CELL VOLUME 85.6 fl (80.0-94.0); MEAN CORPUSCULAR HEMOGLOBIN 28.9 pg (27.0-31.0); MEAN CORPUSCULAR HGB CONC 33.8 g/dL (33.0-37.0); RBC 3.94 Mil/uL (4.40-5.90); RED CELL DISTRIBUTION WIDTH 15.1 % (11.5-14.5)
[2017-05-17 08:26] LABS: BLOOD UREA NITROGEN 16 mg/dl (9-20); CALCIUM 9.1 mg/dL (8.4-10.2); GFR AFRICAN-AMERICAN > 60; GFR NON-AFRICAN AMERICAN > 60
[2017-05-17] MEDS: Lidocaine 5% Patch TD SCH (08:31)
[2017-05-17] MEDS: Pantoprazole 40 mg EC Tab PO SCH (08:31)
[2017-05-17] MEDS: Enoxaparin 40 mg Syringe SC SCH (09:00)
--- NOTE | 2017-05-17 09:56 | CP.PCM.PN ---
Subjective - Date & Time of Evaluation Date of Evaluation: 05/17/17 Time of Evaluation: 09:00 - Subjective Subjective: No fever Pleuritic CP resolved Pigtail on Left Chest attached to Pleurovac less than 5 ml draiange overnight occ cough denies SOB no abd pain Objective - Vital Signs/Intake and Output Vital Signs (last 24 hours): Temp Pulse Resp BP Pulse Ox 98 F 60 18 100/64 100 05/17/17 09:00 05/17/17 09:00 05/17/17 09:00 05/17/17 09:00 05/17/17 09:00 Intake and Output: 05/17/17 05/17/17 06:59 18:59 Intake Total 1430 Output Total 1202 Balance 228 - Medications Medications: Current Medications Acetaminophen (Tylenol 325mg Tab) 650 mg PO Q6 PRN PRN Reason: Fever >100.4 F Last Admin: 05/12/17 10:37 Dose: 650 mg Acetaminophen (Tylenol 325mg Tab) 650 mg PO Q6 PRN PRN Reason: Pain, Mild (1-3) Last Admin: 05/14/17 19:58 Dose: 650 mg Enoxaparin Sodium (Lovenox) 40 mg SC DAILY [facility] PRN Reason: Protocol Last Admin: 05/13/17 09:05 Dose: 40 mg Guaifenesin/Dextromethorphan (Robitussin Dm) 10 ml PO Q6 PRN PRN Reason: Cough Last Admin: 05/08/17 09:11 Dose: 10 ml Sodium Chloride (Sodium Chloride 0.9%) 1,000 mls @ 100 mls/hr IV .Q10H [facility] Last Admin: 05/17/17 03:30 Dose: Not Given Meropenem 1 gm/ Sodium (Chloride) 100 mls @ 100 mls/hr IVPB Q8 [facility] PRN Reason: Protocol Stop: 05/19/17 07:00 Last Admin: 05/17/17 08:29 Dose: 100 mls/hr Vancomycin HCl 1 gm/ Sodium (Chloride) 250 mls @ 166.667 mls/hr IVPB Q12 [facility] PRN Reason: Protocol Last Admin: 05/17/17 08:33 Dose: 166.667 mls/hr Lidocaine (Lidoderm) 1 ea TD DAILY [facility] Last Admin: 05/17/17 08:31 Dose: 1 ea Pantoprazole Sodium (Protonix Ec Tab) 40 mg PO DAILY [facility] Last Admin: 05/17/17 08:31 Dose: 40 mg - Labs Labs: 05/17/17 05:30 05/17/17 05:30 PT 13.1 Seconds (9.8-13.1) 05/14/17 05:50 INR 1.2 (0.9-1.2) 05/14/17 05:50 - Constitutional Appears: No Acute Distress - Head Exam Head Exam: NORMAL INSPECTION, NORMOCEPHALIC - Eye Exam Eye Exam: EOMI, Normal appearance, PERRL Pupil Exam: NORMAL ACCOMODATION - ENT Exam ENT Exam: Mucous Membranes Moist, Normal External Ear Exam - Neck Exam Neck Exam: Full ROM. absent: Meningismus - Respiratory Exam Respiratory Exam: Decreased Breath Sounds, Left : Rales, Rhonchi, NORMAL BREATHING PATTERN. absent: Respiratory Distress No wheezing Chest pigtail on the left attached to Pleurovac - Cardiovascular Exam Cardiovascular Exam: REGULAR RHYTHM, +S1, +S2 - GI/Abdominal Exam GI & Abdominal Exam: Soft, Normal Bowel Sounds. absent: Tenderness - Extremities Exam Extremities Exam: Full ROM, Normal Capillary Refill. absent: Calf Tenderness, Pedal Edema - Back Exam Back Exam: Full ROM. absent: CVA tenderness (L), CVA tenderness (R), vertebral tenderness - Neurological Exam Neurological Exam: Alert, Awake, CN II-XII Intact, Oriented x3 Neuro motor strength exam: Left Upper Extremity: 5, Right Upper Extremity: 5, Left Lower Extremity: 5, Right Lower Extremity: 5 - Psychiatric Exam Psychiatric exam: Flat Affect - Skin Skin Exam: Dry, Normal Color, Warm Assessment and Plan - Assessment and Plan (Free Text) Assessment: 36 yo male with history of Depression came in complaining of fever associated with left sided chest pain and cough productive with green sputum 3 days ago. Patient not a very good historian , with flat affect. Complained of pain. CXR showed left pleural effusion. He was febrile with Tmax 102.2 , WBc 28 K, tachycardic. Patient admitted for sepsis secondary to pneumonia and large pleural effusion. He was started initially on Vanco and Zosyn IV . His WBC started trending up despite broad spectrum antibiotics. Pulmonary and ID consulted . Antibiotics changed to Meropenem and Vancomycin on 05/04. CT chest showed large loculated left pleural effusion but patient initially refused to have chest tube placed. He underwent Left Thoracentesis on 05/05 and chest tube placement on 05/09. Clinically showing some improvement, WBC trended down to normal. Repeat CT chest #2 showed minimal improvement - Modest decrease in left pleural effusion, persistent larger partially loculated left pleural effusion. Repeat CT Chest #3 on 05/16: Mild interval decrease of persistent large left pleural effusion despite satisfactory position of indwelling pigtail catheter in the inferolateral sulcus. If the pigtail catheter is appropriately connected to wall suction, the lack of substantial decrease in fluid volume may be related to loculations within the pleural fluid. 1. Sepsis sec to Pneumonia likely Bacterial Cultures with no growth so far Continue O2 via NC PRN s/p left thoracentesis and chest tube placement with pleural fluid showing exudate Continue Meropenem, Vancomycin IV . Zithromax discontinued 2. LLL Pneumonia with large pleural effusion Initially CT chest showed large pleural effusion, atelectasis Was vanco and Zosyn IV on admission and later changed to Vanco, Meropenem and Zithromax since WBC continued trending up As of 05/16 pt has been afebrile, leukocytosis resolved Vancomycin - Day 15 , will continue for now while Chest tube in place Meropenem - Day 12 05/05 L thoracentesis 05/09 s/p left chest tube placement pleural fluid showed exudate. Cultures negative. ID and pulmonary on consult Continue O2 via NC PRN 3. Pedal Edema- resolved venous doppler negative for DVT 4.Depression Psych consulted patient refuses medical management 5. Lice infestation decontaminated in ER received Permethrin 6. DVt prophylaxis Lovenox
[2017-05-18] MEDS: Meropenem 1 GM in Sodium Chloride 0.9% 100 ML IVPB SCH ×4 (01:30→23:58)
[2017-05-18] MEDS: Sodium Chloride 0.9% 1,000 ML IV SCH ×3 (01:49→21:42)
[2017-05-18] MEDS: Enoxaparin 40 mg Syringe SC SCH (09:39)
[2017-05-18] MEDS: Lidocaine 5% Patch TD SCH (09:39)
[2017-05-18] MEDS: Pantoprazole 40 mg EC Tab PO SCH (09:39)
--- NOTE | 2017-05-18 18:17 | CP.PCM.PN ---
Subjective - Date & Time of Evaluation Date of Evaluation: 05/18/17 Time of Evaluation: 10:20 - Subjective Subjective: Patient seen and examined. Claimed his breathing is fine as long as he has the O2 supplement. Objective - Vital Signs/Intake and Output Vital Signs (last 24 hours): Temp Pulse Resp BP Pulse Ox 98.7 F 73 18 111/60 98 05/18/17 16:12 05/18/17 16:12 05/18/17 16:12 05/18/17 16:12 05/18/17 16:12 Intake and Output: 05/18/17 05/18/17 06:59 18:59 Intake Total 2650 Output Total 912 Balance 1738 - Medications Medications: Current Medications Acetaminophen (Tylenol 325mg Tab) 650 mg PO Q6 PRN PRN Reason: Fever >100.4 F Last Admin: 05/12/17 10:37 Dose: 650 mg Acetaminophen (Tylenol 325mg Tab) 650 mg PO Q6 PRN PRN Reason: Pain, Mild (1-3) Last Admin: 05/14/17 19:58 Dose: 650 mg Enoxaparin Sodium (Lovenox) 40 mg SC DAILY DERRICK PRN Reason: Protocol Last Admin: 05/18/17 09:39 Dose: 40 mg Guaifenesin/Dextromethorphan (Robitussin Dm) 10 ml PO Q6 PRN PRN Reason: Cough Last Admin: 05/08/17 09:11 Dose: 10 ml Sodium Chloride (Sodium Chloride 0.9%) 1,000 mls @ 100 mls/hr IV .Q10H DERRICK Last Admin: 05/18/17 01:49 Dose: Not Given Meropenem 1 gm/ Sodium (Chloride) 100 mls @ 100 mls/hr IVPB Q8 DERRICK PRN Reason: Protocol Stop: 05/19/17 07:00 Last Admin: 05/18/17 09:36 Dose: 100 mls/hr Vancomycin HCl 1 gm/ Sodium (Chloride) 250 mls @ 166.667 mls/hr IVPB Q12 DERRICK PRN Reason: Protocol Last Admin: 05/18/17 09:40 Dose: 166.667 mls/hr Lidocaine (Lidoderm) 1 ea TD DAILY DERRICK Last Admin: 05/18/17 09:39 Dose: 1 ea Pantoprazole Sodium (Protonix Ec Tab) 40 mg PO DAILY DERRICK Last Admin: 05/18/17 09:39 Dose: 40 mg - Labs Labs: 05/17/17 05:30 05/17/17 05:30 PT 13.1 Seconds (9.8-13.1) 05/14/17 05:50 INR 1.2 (0.9-1.2) 05/14/17 05:50 - Constitutional Appears: No Acute Distress - Head Exam Head Exam: ATRAUMATIC - Eye Exam Eye Exam: absent: Scleral icterus - ENT Exam ENT Exam: Mucous Membranes Moist - Neck Exam Neck Exam: absent: Meningismus - Respiratory Exam Respiratory Exam: Decreased Breath Sounds, Rhonchi (noted on left lung field). absent: Wheezes, Respiratory Distress - Cardiovascular Exam Cardiovascular Exam: REGULAR RHYTHM, +S1, +S2 - GI/Abdominal Exam GI & Abdominal Exam: Soft. absent: Tenderness - Rectal Exam Rectal Exam: Deferred - Back Exam Back Exam: absent: tenderness - Neurological Exam Neurological Exam: Alert, Oriented x3 - Psychiatric Exam Psychiatric exam: Normal Affect - Skin Skin Exam: Dry, Intact Assessment and Plan - Assessment and Plan (Free Text) Assessment: 36 yo male with history of Depression came in with left sided chest pain associated with cough productive with green sputum. CXR showed left pleural effusion. Patient was febrile, tachycardic with leukocytosis. He was admitted with Sepsis secondary to Pneumonia and Large Pleural Effusion. He was started on IV Vanco and Zosyn but WBC continued to trend up. Zosyn was switched to Meropenem. CT of the chest showed large loculated left pleural effusion. Patient initially refused chest tube but later on relented and it inserted on . Repeat CT showed minimal improvement as minimal output was noted from the chest tube. 1. Sepsis secondary to Pneumonia/Pleural Effusion afebrile, WBC remained within normal range all cultures remained negative for growth continue O2 supplement continue Meropenem and Vancomycin consult thoracic surgeon for management of loculated pleural effusion 2. Depression Psych consulted patient refuses medical management 3. DVt prophylaxis on Lovenox
[2017-05-19] MEDS: Sodium Chloride 0.9% 1,000 ML IV SCH ×2 (05:42→23:49)
[2017-05-19] MEDS: Pantoprazole 40 mg EC Tab PO SCH (09:42)
[2017-05-19] MEDS: Enoxaparin 40 mg Syringe SC SCH (09:42)
[2017-05-19] MEDS: Lidocaine 5% Patch TD SCH (09:43)
[2017-05-19] MEDS: guaiFENesin DM 200 mg-20 mg/10 ml UD PO PRN (09:44)
--- NOTE | 2017-05-19 11:15 | CP.PCM.PN ---
Subjective - Date & Time of Evaluation Date of Evaluation: 05/19/17 Time of Evaluation: 10:15 - Subjective Subjective: Patient seen and examined. Dunlap fine with O2 supplement but felt SOB without it. Denied chest pain. Claimed he would refused surgical intervention if needed. Objective - Vital Signs/Intake and Output Vital Signs (last 24 hours): Temp Pulse Resp BP Pulse Ox 98.5 F 64 19 97/61 L 99 05/19/17 08:21 05/19/17 08:21 05/19/17 08:21 05/19/17 08:21 05/19/17 08:21 Intake and Output: 05/19/17 05/19/17 06:59 18:59 Intake Total 1650 1230 Output Total 20 1504 Balance 1630 -274 - Medications Medications: Current Medications Acetaminophen (Tylenol 325mg Tab) 650 mg PO Q6 PRN PRN Reason: Fever >100.4 F Last Admin: 05/12/17 10:37 Dose: 650 mg Acetaminophen (Tylenol 325mg Tab) 650 mg PO Q6 PRN PRN Reason: Pain, Mild (1-3) Last Admin: 05/14/17 19:58 Dose: 650 mg Enoxaparin Sodium (Lovenox) 40 mg SC DAILY DERRICK PRN Reason: Protocol Last Admin: 05/19/17 09:42 Dose: 40 mg Guaifenesin/Dextromethorphan (Robitussin Dm) 10 ml PO Q6 PRN PRN Reason: Cough Last Admin: 05/19/17 09:44 Dose: 10 ml Sodium Chloride (Sodium Chloride 0.9%) 1,000 mls @ 100 mls/hr IV .Q10H [facility] Last Admin: 05/19/17 05:42 Dose: Not Given Vancomycin HCl 1 gm/ Sodium (Chloride) 250 mls @ 166.667 mls/hr IVPB Q12 DERRICK PRN Reason: Protocol Last Admin: 05/19/17 09:43 Dose: 166.667 mls/hr Lidocaine (Lidoderm) 1 ea TD DAILY DERRICK Last Admin: 05/19/17 09:43 Dose: 1 ea Pantoprazole Sodium (Protonix Ec Tab) 40 mg PO DAILY DERRICK Last Admin: 05/19/17 09:42 Dose: 40 mg - Labs Labs: 05/17/17 05:30 05/17/17 05:30 PT 13.1 Seconds (9.8-13.1) 05/14/17 05:50 INR 1.2 (0.9-1.2) 05/14/17 05:50 - Constitutional Appears: No Acute Distress - Head Exam Head Exam: ATRAUMATIC - Eye Exam Eye Exam: absent: Scleral icterus - ENT Exam ENT Exam: Mucous Membranes Moist - Neck Exam Neck Exam: absent: Meningismus - Respiratory Exam Respiratory Exam: Decreased Breath Sounds, Rhonchi (on left lung field) - Cardiovascular Exam Cardiovascular Exam: REGULAR RHYTHM, +S1, +S2 - GI/Abdominal Exam GI & Abdominal Exam: Soft. absent: Tenderness - Rectal Exam Rectal Exam: Deferred - Back Exam Back Exam: absent: tenderness - Neurological Exam Neurological Exam: Alert, Oriented x3 - Skin Skin Exam: Dry, Intact Assessment and Plan - Assessment and Plan (Free Text) Assessment: 36 yo male with history of Depression came in with left sided chest pain associated with cough productive with green sputum. CXR showed left pleural effusion. Patient was febrile, tachycardic with leukocytosis. He was admitted with Sepsis secondary to Pneumonia and Large Pleural Effusion. He was started on IV Vanco and Zosyn but WBC continued to trend up. Zosyn was switched to Meropenem. CT of the chest showed large loculated left pleural effusion. Patient initially refused chest tube but later on relented and it inserted on . Repeat CT showed minimal improvement as minimal output was noted from the chest tube. 1. Sepsis secondary to Pneumonia/Pleural Effusion afebrile, WBC remained within normal range all cultures remained negative for growth continue O2 supplement minimal output from Pleurovac continue Meropenem and Vancomycin consult with Dr Lara, thoracic surgeon, for possible insertion of a bigger gauge chest tube re-consult ID 2. Depression Psych consulted 3. DVt prophylaxis on Lovenox
--- NOTE | 2017-05-19 13:00 | CP.PCM.PN ---
Subjective - Date & Time of Evaluation Date of Evaluation: 05/19/17 Time of Evaluation: 13:00 Objective - Vital Signs/Intake and Output Vital Signs (last 24 hours): Temp Pulse Resp BP Pulse Ox 98.5 F 64 19 97/61 L 99 05/19/17 09:00 05/19/17 09:00 05/19/17 09:00 05/19/17 09:00 05/19/17 09:00 Intake and Output: 05/19/17 05/19/17 06:59 18:59 Intake Total 1650 1230 Output Total 20 1504 Balance 1630 -274 - Medications Medications: Current Medications Acetaminophen (Tylenol 325mg Tab) 650 mg PO Q6 PRN PRN Reason: Fever >100.4 F Last Admin: 05/12/17 10:37 Dose: 650 mg Acetaminophen (Tylenol 325mg Tab) 650 mg PO Q6 PRN PRN Reason: Pain, Mild (1-3) Last Admin: 05/14/17 19:58 Dose: 650 mg Enoxaparin Sodium (Lovenox) 40 mg SC DAILY DERRICK PRN Reason: Protocol Last Admin: 05/19/17 09:42 Dose: 40 mg Guaifenesin/Dextromethorphan (Robitussin Dm) 10 ml PO Q6 PRN PRN Reason: Cough Last Admin: 05/19/17 09:44 Dose: 10 ml Sodium Chloride (Sodium Chloride 0.9%) 1,000 mls @ 100 mls/hr IV .Q10H DERRICK Last Admin: 05/19/17 05:42 Dose: Not Given Vancomycin HCl 1 gm/ Sodium (Chloride) 250 mls @ 166.667 mls/hr IVPB Q12 DERRICK PRN Reason: Protocol Last Admin: 05/19/17 09:43 Dose: 166.667 mls/hr Meropenem 1 gm/ Sodium (Chloride) 100 mls @ 100 mls/hr IVPB Q8 DERRICK PRN Reason: Protocol Lidocaine (Lidoderm) 1 ea TD DAILY DERRICK Last Admin: 05/19/17 09:43 Dose: 1 ea Pantoprazole Sodium (Protonix Ec Tab) 40 mg PO DAILY DERRICK Last Admin: 05/19/17 09:42 Dose: 40 mg - Labs Labs: 05/17/17 05:30 05/17/17 05:30 PT 13.1 Seconds (9.8-13.1) 05/14/17 05:50 INR 1.2 (0.9-1.2) 05/14/17 05:50 Assessment and Plan (1) Pneumonia Status: Acute (2) Sepsis Status: Acute (3) Leukocytosis Status: Acute
--- NOTE | 2017-05-19 13:16 | CP.PCM.CON ---
History of Present Illness - History of Present Illness History of Present Illness: Consult Note for Dr. Lara, Cardiothoracic surgery 36M with PMH of bronchitis presented to [facility] ED on 05/02/17 with complaints of left sided chest pain. Patient states he never had this kind of pain before which is what made him come into the ED. While in the hospital patient underwent multiple thoracentesis which were done by IR. Throughout these procedures anywhere from 20-60ccs of fluid were drain. Thus far cultures from fluids have been negative. At time of examination patient denied headaches/fever , chills, dizziness, chest pain, shortness of breath. Patient's Chest CT was reviewed, left loculated pleural fluid appreciated. PMHx: as stated above PSurgHx: denies Social hx: smokes 1 ppd [id number]. Denies illicit drug use. Fam Hx: non-contributory Review of Systems - Review of Systems Review of Systems: 12pt ROS unremarkable, except as stated in HPI Past Patient History - Infectious Disease Hx of Infectious Diseases: None - Past Medical History & Family History Past Medical History?: Yes - Past Social History Smoking Status: Light Smoker < 10 Cigarettes Daily - CARDIAC Hx Cardiac Disorders: No - PULMONARY Hx Respiratory Disorders: No - NEUROLOGICAL Hx Neurological Disorder: No - HEENT Hx HEENT Problems: No - RENAL Hx Chronic Kidney Disease: No - ENDOCRINE/METABOLIC Hx Endocrine Disorders: No - HEMATOLOGICAL/ONCOLOGICAL Hx Blood Disorders: No - INTEGUMENTARY Hx Dermatological Problems: No - MUSCULOSKELETAL/RHEUMATOLOGICAL Hx Musculoskeletal Disorders: No Hx Falls: No - GASTROINTESTINAL Hx Gastrointestinal Disorders: No - GENITOURINARY/GYNECOLOGICAL Hx Genitourinary Disorders: No - PSYCHIATRIC Hx Psychophysiologic Disorder: Yes (depression) Hx Substance Use: No - SURGICAL HISTORY Hx Surgeries: No - ANESTHESIA Hx Anesthesia: No Meds Allergies/Adverse Reactions: Allergies Allergy/AdvReac Type Severity Reaction Status Date / Time No Known Allergies Allergy Verified 03/28/17 16:53 - Medications Medications: Current Medications Acetaminophen (Tylenol 325mg Tab) 650 mg PO Q6 PRN PRN Reason: Fever >100.4 F Last Admin: 05/12/17 10:37 Dose: 650 mg Acetaminophen (Tylenol 325mg Tab) 650 mg PO Q6 PRN PRN Reason: Pain, Mild (1-3) Last Admin: 05/14/17 19:58 Dose: 650 mg Enoxaparin Sodium (Lovenox) 40 mg SC DAILY DERRICK PRN Reason: Protocol Last Admin: 05/19/17 09:42 Dose: 40 mg Guaifenesin/Dextromethorphan (Robitussin Dm) 10 ml PO Q6 PRN PRN Reason: Cough Last Admin: 05/19/17 09:44 Dose: 10 ml Sodium Chloride (Sodium Chloride 0.9%) 1,000 mls @ 100 mls/hr IV .Q10H [facility]ERRICK Last Admin: 05/19/17 05:42 Dose: Not Given Vancomycin HCl 1 gm/ Sodium (Chloride) 250 mls @ 166.667 mls/hr IVPB Q12 DERRICK PRN Reason: Protocol Last Admin: 05/19/17 09:43 Dose: 166.667 mls/hr Meropenem 1 gm/ Sodium (Chloride) 100 mls @ 100 mls/hr IVPB Q8 DERRICK PRN Reason: Protocol Lidocaine (Lidoderm) 1 ea TD DAILY [facility] Last Admin: 05/19/17 09:43 Dose: 1 ea Pantoprazole Sodium (Protonix Ec Tab) 40 mg PO DAILY [facility] [place] Last Admin: 05/19/17 09:42 Dose: 40 mg Physical Exam - Constitutional Appears: No Acute Distress - Head Exam Head Exam: NORMOCEPHALIC - Eye Exam Eye Exam: EOMI, Normal appearance - ENT Exam ENT Exam: Mucous Membranes Moist - Respiratory Exam Respiratory Exam: Decreased Breath Sounds, NORMAL BREATHING PATTERN Additional comments: LLL decreased breath sounds - Cardiovascular Exam Cardiovascular Exam: +S1, +S2 - GI/Abdominal Exam GI & Abdominal Exam: Soft - Neurological Exam Neurological exam: Alert, Oriented x3 - Psychiatric Exam Psychiatric exam: Normal Mood - Skin Skin Exam: Dry, Intact, Warm Results - Vital Signs Recent Vital Signs: Last Vital Signs Temp 98.5 F 05/19/17 09:00 Pulse 64 05/19/17 09:00 Resp 19 05/19/17 09:00 BP 97/61 L 05/19/17 09:00 Pulse Ox 99 05/19/17 09:00 - Labs Result Diagrams: 05/17/17 05:30 05/17/17 05:30 - Imaging and Cardiology CT scan - chest Status: Image reviewed by me, Report reviewed by me Assessment & Plan - Assessment and Plan (Free Text) Assessment: 36M with left loculated pleural effusion Plan: -From a cardiothoracic surgery standpoint recommendation at this time is for an open thoracotomy with decortication and lung biopsy -At this present time patient is adamantly refusing any kind of surgical intervention -Risks of no surgical intervention were clearly and extensively explained to the patient -Patient is aware complications may include worsening infection, shortness of breath, sepsis, and/or -Patient is aware and even after risks and complications of no intervention were explained, he stated he still does not want to go through with surgery -At this point patient's pigtail catheter can be removed as it is not draining and patient can be discharge home as he is refusing any further surgical intervention -Discussed with Dr. Marco Iniguez PGY2
--- NOTE | 2017-05-19 13:42 | CP.PCM.PN ---
Subjective - Date & Time of Evaluation Date of Evaluation: 05/19/17 Time of Evaluation: 13:40 - Subjective Subjective: Reason for consultation: Loculated left pleural effusion Requested by Dr. Pickard. Pt s/e with Dr. Joya this am. The clinical issue at this time is a loculated incompletely draining left empyema with a compressive atelectasis. I concurr with Dr. Joya's a/p i.e. open thoracotomy, decortication, and lung and pleural bx. The pt is refusing to undergo recommended Rx. as outlined by Dr. Joya. I have discussed a further disposition plans with Neeraj BARBER. If we coiuld be any further help on behalf of pt's care, please let us know. Objective - Vital Signs/Intake and Output Vital Signs (last 24 hours): Temp Pulse Resp BP Pulse Ox 98.5 F 64 19 97/61 L 99 05/19/17 09:00 05/19/17 09:00 05/19/17 09:00 05/19/17 09:00 05/19/17 09:00 Intake and Output: 05/19/17 05/19/17 06:59 18:59 Intake Total 1650 1230 Output Total 20 1504 Balance 1630 -274 - Medications Medications: Current Medications Acetaminophen (Tylenol 325mg Tab) 650 mg PO Q6 PRN PRN Reason: Fever >100.4 F Last Admin: 05/12/17 10:37 Dose: 650 mg Acetaminophen (Tylenol 325mg Tab) 650 mg PO Q6 PRN PRN Reason: Pain, Mild (1-3) Last Admin: 05/14/17 19:58 Dose: 650 mg Enoxaparin Sodium (Lovenox) 40 mg SC DAILY DERRICK PRN Reason: Protocol Last Admin: 05/19/17 09:42 Dose: 40 mg Guaifenesin/Dextromethorphan (Robitussin Dm) 10 ml PO Q6 PRN PRN Reason: Cough Last Admin: 05/19/17 09:44 Dose: 10 ml Sodium Chloride (Sodium Chloride 0.9%) 1,000 mls @ 100 mls/hr IV .Q10H [facility]ERRICK Last Admin: 05/19/17 05:42 Dose: Not Given Vancomycin HCl 1 gm/ Sodium (Chloride) 250 mls @ 166.667 mls/hr IVPB Q12 DERRICK PRN Reason: Protocol Last Admin: 05/19/17 09:43 Dose: 166.667 mls/hr Meropenem 1 gm/ Sodium (Chloride) 100 mls @ 100 mls/hr IVPB Q8 DERRICK PRN Reason: Protocol Lidocaine (Lidoderm) 1 ea TD DAILY DERRICK Last Admin: 05/19/17 09:43 Dose: 1 ea Pantoprazole Sodium (Protonix Ec Tab) 40 mg PO DAILY DERRICK Last Admin: 05/19/17 09:42 Dose: 40 mg - Labs Labs: 05/17/17 05:30 05/17/17 05:30 PT 13.1 Seconds (9.8-13.1) 05/14/17 05:50 INR 1.2 (0.9-1.2) 05/14/17 05:50
--- NOTE | 2017-05-19 14:09 | CP.PCM.PN ---
Subjective - Date & Time of Evaluation Date of Evaluation: 05/19/17 Time of Evaluation: 13:00 - Subjective Subjective: ID Note- Pt. seen and examined today. pt's affect is less flat and he states he feels better and he denies any sob. He states he has been walking to and from the bathroom w/o his oxygen and has not experienced any sob today. he still has the chest tube but still has loculated fluid in the lung and CT surgical consult called by hospitalist loculated incompletely draining left empyema with a compressive atelectasis. pt. however, states he does not wish to have any surgical procedures at this time. Objective - Vital Signs/Intake and Output Vital Signs (last 24 hours): Temp Pulse Resp BP Pulse Ox 98.5 F 64 19 97/61 L 99 05/19/17 09:00 05/19/17 09:00 05/19/17 09:00 05/19/17 09:00 05/19/17 09:00 Intake and Output: 05/19/17 05/19/17 06:59 18:59 Intake Total 1650 1230 Output Total 20 1504 Balance 1630 -274 - Medications Medications: Current Medications Acetaminophen (Tylenol 325mg Tab) 650 mg PO Q6 PRN PRN Reason: Fever >100.4 F Last Admin: 05/12/17 10:37 Dose: 650 mg Acetaminophen (Tylenol 325mg Tab) 650 mg PO Q6 PRN PRN Reason: Pain, Mild (1-3) Last Admin: 05/14/17 19:58 Dose: 650 mg Enoxaparin Sodium (Lovenox) 40 mg SC DAILY DERRICK PRN Reason: Protocol Last Admin: 05/19/17 09:42 Dose: 40 mg Guaifenesin/Dextromethorphan (Robitussin Dm) 10 ml PO Q6 PRN PRN Reason: Cough Last Admin: 05/19/17 09:44 Dose: 10 ml Sodium Chloride (Sodium Chloride 0.9%) 1,000 mls @ 100 mls/hr IV .Q10H [facility]ERRICK Last Admin: 05/19/17 05:42 Dose: Not Given Vancomycin HCl 1 gm/ Sodium (Chloride) 250 mls @ 166.667 mls/hr IVPB Q12 DERRICK PRN Reason: Protocol Last Admin: 05/19/17 09:43 Dose: 166.667 mls/hr Meropenem 1 gm/ Sodium (Chloride) 100 mls @ 100 mls/hr IVPB Q8 DERRICK PRN Reason: Protocol Lidocaine (Lidoderm) 1 ea TD DAILY [facility] Last Admin: 05/19/17 09:43 Dose: 1 ea Pantoprazole Sodium (Protonix Ec Tab) 40 mg PO DAILY DERRICK Last Admin: 05/19/17 09:42 Dose: 40 mg - Labs Labs: - Additional Findings Additional findings: - Constitutional Appears: No Acute Distress - Head Exam Head Exam: ATRAUMATIC - Eye Exam Eye Exam: EOMI, PERRL - ENT Exam ENT Exam: Normal Oropharynx - Neck Exam Neck exam: Positive for: Full Rom - Respiratory Exam Respiratory Exam: NORMAL BREATHING PATTERN Additional comments: left lung chest tube in place, not draining, no surrounding erythema decreased breath sound at left base - Cardiovascular Exam Cardiovascular Exam: RRR, +S1, +S2 - GI/Abdominal Exam GI & Abdominal Exam: Normal Bowel Sounds, Soft Additional comments: NT, ND - Extremities Exam Extremities exam: Positive for: normal inspection - Neurological Exam Neurological exam: Alert, Oriented x 3 Laboratory Results - last 72 hr 05/17/17 05/17/17 05:30 05:30 WBC 5.0 RBC 3.94 L Hgb 11.4 L Hct 33.8 L MCV 85.6 MCH 28.9 MCHC 33.8 RDW 15.1 H Plt Count 546 H Sodium 143 Potassium 4.3 Chloride 101 Carbon Dioxide 32 H Anion Gap 14 BUN 16 Creatinine 0.7 L Est GFR ( Amer) > 60 Est GFR (Non-Af Amer) > 60 Random Glucose 87 Calcium 9.1 Microbiology 05/14/17 15:35 Pleural Fluid Gram Stain - Final 05/14/17 15:35 Pleural Fluid Body Fluid Culture - Final No growth. 05/05/17 16:30 Lung Left Fungal Culture - Preliminary NO FUNGUS GROWTH IN 1 WEEK. 05/05/17 16:30 Other: Please Indicate Mycobacterial Culture - Preliminary 05/05/17 16:30 Pleural Fluid Gram Stain - Final 05/05/17 16:30 Pleural Fluid Anaerobic Culture - Final NO ANAEROBES ISOLATED. 05/05/17 16:30 Pleural Fluid Body Fluid Culture - Final No growth. 05/02/17 13:15 Blood-Venous Blood Culture - Final NO GROWTH AFTER 5 DAYS 05/02/17 13:15 Blood-Venous Gram Stain - Final TEST NOT PERFORMED 05/02/17 13:05 Blood-Venous Blood Culture - Final NO GROWTH AFTER 5 DAYS 05/04/17 16:50 Sputum Gram Stain - Final 05/04/17 16:50 Sputum Sputum Culture - Final NORMAL ORAL CJ Accession No. : [id number] Patient Name / ID : VIOLETTE GREWAL / [id number] Exam Date : 05/16/2017 11:59:49 ( Approved ) Study Comment : Sex / Age : M / 36Y Creator : Bc Keita MD Dictator : Bc Keita MD Audiovisual Tech : Tiler : Bc Keita MD Approver2 : Report Date : 05/16/2017 12:32:51 My Comment : PROCEDURE: CT Chest without contrast HISTORY: eval pleural effusion COMPARISON: CT chest dated 05/12/2017. TECHNIQUE: Contiguous axial images were obtained through the chest without intravenous contrast enhancement. Sagittal and coronal reconstructions were performed. Radiation dose (DLP): 249.7 mGy-cm. This CT exam was performed using one or more of the following dose reduction techniques: Automated exposure control, adjustment of the mA and/or kV according to patient size, and/or use of iterative reconstruction technique. FINDINGS: LUNGS: Right lung clear. Left upper and lower lobe atelectasis related to large persistent pleural effusion. MEDIASTINUM: Unremarkable thoracic aorta. No aneurysm. Normal sized heart. Small persistent pericardial effusion. Main pulmonary artery unremarkable. No vascular congestion. Stable appearance of anterior mediastinal soft tissue density. Stable appearance of small lymph nodes. PLEURA: Mild interval decrease of persistent large left pleural effusion despite the presence of indwelling pigtail catheter in the inferolateral sulcus. No pneumothorax. BONES: No fracture. No destructive lesion. UPPER ABDOMEN: Grossly unremarkable. OTHER FINDINGS: None. IMPRESSION: Mild interval decrease of persistent large left pleural effusion despite satisfactory position of indwelling pigtail catheter in the inferolateral sulcus. If the pigtail catheter is appropriately connected to wall suction, the lack of substantial decrease in fluid volume may be related to loculations within the pleural fluid. No other significant interval change. Assessment and Plan (1) Pneumonia Status: Acute (2) Sepsis Status: Acute (3) Leukocytosis Status: Acute (4) Loculated empyema Status: Acute - Assessment and Plan (Free Text) Assessment: A/P- 36 year old male from care home admitetd with cough and pleuritic chest pain and fever found to have Left pleural effusion and pneumonia. afebrile past 2 weeks. leukocytosis has resolved for the past week post chest tube insertion. pleural fluid cell count c/w exudate blood cx- neg x 2 sputum cx- negative large left pleural effusion on chest CT. HIV -negative Influenza- negative pleural fluid gram stain and culture- negative pleural fluid AFB smear and cx- negative quantiferon gold - neg legionella- negative mycoplasma IGG- pos, IGM- neg chect CT from 05/16/2017- remaining loculated left pleural effusion as per report. CT surgeon evaluation for possible thoracotomy but pt. is refusing any surgical intervention despite the risks of sepsis and infection . plan- today is day #14 of both IV meropenem and vancomycin for the loculated left lung empyema. had lengthy discussion with patient regarding importance of having the left lower lung empyema removed by CT surgeon as it can lead to sepsis and pulmonary problems, however, pt. understands the risks and still refuses any surgicalintervention at this time. explained to patient that antibiotics alone will not be sufficient . ultimate therapy for loculated pleural empyema is surgical drainage or decortication, however, since pt. is refusing surgery and he has remained afebrile and with normal wbc for past 2 weeks, if he is being d/c home he can be d/c on oral clindamycin and augmentin for another 4 weeks. if he can go to [facility] and receive IV antibiotics would advise 2 more weeks of IV meropenem. d/c vancomycin. check repeat cxr or chest Ct in 2-3 weeks as outpatient. f/u wbc as outpatient if he develops any fever he needs to return to hospital and receive IV antibiotics and drainage of the empyema . case d/w the hospitalist at length .
[2017-05-19] MEDS: Meropenem 1 GM in Sodium Chloride 0.9% 100 ML IVPB SCH (16:46)
[2017-05-19] MEDS ORDERED: Meropenem 1 GM in Sodium Chloride 0.9% 100 ML IVPB SCH (17:00)
[2017-05-20] MEDS: Meropenem 1 GM in Sodium Chloride 0.9% 100 ML IVPB SCH ×2 (00:09→08:54)
[2017-05-20] MEDS: Sodium Chloride 0.9% 1,000 ML IV SCH (01:30)
[2017-05-20 08:21] VITALS: TEMP 98.3
[2017-05-20] MEDS: Pantoprazole 40 mg EC Tab PO SCH (08:55)
[2017-05-20] MEDS: Enoxaparin 40 mg Syringe SC SCH (08:56)
[2017-05-20] MEDS: Lidocaine 5% Patch TD SCH (08:57)
[2017-05-20 12:20] VITALS: PULSE 74
--- NOTE | 2017-05-20 16:36 | CP.PCM.DIS ---
Provider - Provider Date of Admission: 05/02/17 13:19 Attending physician: Sebastian Pickard MD Consults: Dr Blayne Joseph Time Spent in preparation of Discharge (in minutes): 25 Diagnosis - Discharge Diagnosis (1) Loculated empyema Status: Acute Comment: patient refused surgical removal of loculated pleural effusion. continue 28 days of PO Clindamycin and Augmentin. follow up in [facility] in a week Hospital Course - Lab Results Lab Results: Micro Results 05/05/17 16:30 Other: Please Indicate Mycobacterial Culture - Preliminary 05/14/17 15:35 Pleural Fluid Gram Stain - Final 05/14/17 15:35 Pleural Fluid Body Fluid Culture - Final No growth. 05/05/17 16:30 Lung Left Fungal Culture - Preliminary NO FUNGUS GROWTH IN 1 WEEK. 05/05/17 16:30 Pleural Fluid Gram Stain - Final 05/05/17 16:30 Pleural Fluid Anaerobic Culture - Final NO ANAEROBES ISOLATED. 05/05/17 16:30 Pleural Fluid Body Fluid Culture - Final No growth. 05/02/17 13:15 Blood-Venous Blood Culture - Final NO GROWTH AFTER 5 DAYS 05/02/17 13:15 Blood-Venous Gram Stain - Final TEST NOT PERFORMED 05/02/17 13:05 Blood-Venous Blood Culture - Final NO GROWTH AFTER 5 DAYS 05/04/17 16:50 Sputum Gram Stain - Final 05/04/17 16:50 Sputum Sputum Culture - Final NORMAL ORAL CJ Most Recent Lab Values WBC 5.0 K/uL (4.8-10.8) 05/17/17 05:30 RBC 3.94 Mil/uL (4.40-5.90) L 05/17/17 05:30 Hgb 11.4 g/dL (12.0-18.0) L 05/17/17 05:30 Hct 33.8 % (35.0-51.0) L 05/17/17 05:30 MCV 85.6 fl (80.0-94.0) 05/17/17 05:30 MCH 28.9 pg (27.0-31.0) 05/17/17 05:30 MCHC 33.8 g/dL (33.0-37.0) 05/17/17 05:30 RDW 15.1 % (11.5-14.5) H 05/17/17 05:30 Plt Count 546 K/uL (130-400) H 05/17/17 05:30 MPV 7.4 fl (7.2-11.7) 05/10/17 05:10 Neut % (Auto) 84.2 % (50.0-75.0) H 05/10/17 05:10 Lymph % (Auto) 8.6 % (20.0-40.0) L 05/10/17 05:10 Weston % (Auto) 5.6 % (0.0-10.0) 05/10/17 05:10 Eos % (Auto) 0.7 % (0.0-4.0) 05/10/17 05:10 Baso % (Auto) 0.9 % (0.0-2.0) 05/10/17 05:10 Neut # (Auto) 11.2 K/uL (1.8-7.0) H 05/10/17 05:10 Lymph # (Auto) 1.1 K/uL (1.0-4.3) 05/10/17 05:10 Weston # (Auto) 0.7 K/uL (0.0-0.8) 05/10/17 05:10 Eos # (Auto) 0.1 K/uL (0.0-0.7) 05/10/17 05:10 Baso # (Auto) 0.1 K/uL (0.0-0.2) 05/10/17 05:10 Neutrophils % (Manual) 82 % (42-75) H 05/10/17 05:10 Band Neutrophils % 1 % (0-2) 05/02/17 13:05 Lymphocytes % (Manual) 10 % (20-50) L 05/10/17 05:10 Monocytes % (Manual) 7 % (0-10) 05/10/17 05:10 Eosinophils % (Manual) 1 % (0-7) 05/10/17 05:10 Basophils % (Manual) 1 % (0-2) 05/05/17 05:55 Toxic Granulation Present 05/05/17 05:55 Platelet Estimate Increased (NORMAL) H 05/10/17 05:10 Large Platelets Present 05/10/17 05:10 Hypochromasia (manual) Slight 05/05/17 05:55 Anisocytosis (manual) Slight 05/10/17 05:10 Tear Drop Cells Slight 05/05/17 05:55 Ovalocytes Slight 05/05/17 05:55 Schistocytes Slight 05/05/17 05:55 PT 13.1 Seconds (9.8-13.1) 05/14/17 05:50 INR 1.2 (0.9-1.2) 05/14/17 05:50 pO2 21 mm/Hg (30-55) L 05/02/17 13:30 VBG pH 7.37 (7.32-7.43) 05/02/17 13:30 VBG pCO2 54 mmHg (40-60) 05/02/17 13:30 VBG HCO3 26.7 mmol/L 05/02/17 13:30 VBG Total CO2 32.9 mmol/L (22-28) H 05/02/17 13:30 VBG O2 Sat (Calc) 34.5 % (40-65) L 05/02/17 13:30 VBG Base Excess 4.5 mmol/L (0.0-2.0) H 05/02/17 13:30 VBG Potassium 4.6 mmol/L (3.6-5.2) 05/02/17 13:30 Sodium 134.0 mmol/L (132-148) 05/02/17 13:30 Chloride 101.0 mmol/L (98-107) 05/02/17 13:30 Glucose 110 mg/dL (75-110) 05/02/17 13:30 Lactate 1.5 mmol/L (0.7-2.1) 05/02/17 13:30 FiO2 21.0 % 05/02/17 13:30 Sodium 143 mmol/l (132-148) 05/17/17 05:30 Potassium 4.3 MMOL/L (3.6-5.0) 05/17/17 05:30 Chloride 101 mmol/L (98-107) 05/17/17 05:30 Carbon Dioxide 32 mmol/L (22-30) H 05/17/17 05:30 Anion Gap 14 (10-20) 05/17/17 05:30 BUN 16 mg/dl (9-20) 05/17/17 05:30 Creatinine 0.7 mg/dl (0.8-1.5) L 05/17/17 05:30 Est GFR ( Amer) > 60 05/17/17 05:30 Est GFR (Non-Af Amer) > 60 05/17/17 05:30 Random Glucose 87 mg/dL (75-110) 05/17/17 05:30 Calcium 9.1 mg/dL (8.4-10.2) 05/17/17 05:30 Total Bilirubin 0.3 mg/dl (0.2-1.3) 05/08/17 05:00 AST 41 U/L (17-59) 05/08/17 05:00 ALT 31 U/L (21-72) 05/08/17 05:00 Alkaline Phosphatase 83 U/L (38-126) 05/08/17 05:00 Total Protein 6.9 G/DL (6.3-8.2) 05/08/17 05:00 Albumin 2.7 g/dL (3.5-5.0) L D 05/08/17 05:00 Globulin 4.1 gm/dL (2.2-3.9) H 05/08/17 05:00 Albumin/Globulin Ratio 0.7 (1.0-2.1) L 05/08/17 05:00 Venous Blood Potassium 4.6 mmol/L (3.6-5.2) 05/02/17 13:30 Urine Color Yellow (YELLOW) 05/02/17 21:12 Urine Clarity Slighty-cloudy (Clear) 05/02/17 21:12 Urine pH 5.0 (5.0-8.0) 05/02/17 21:12 Ur Specific Clay 1.028 (1.003-1.030) 05/02/17 21:12 Urine Protein 100 mg/dL (NEGATIVE) 05/02/17 21:12 Urine Glucose (UA) Neg mg/dL (Normal) 05/02/17 21:12 Urine Ketones Negative mg/dL (NEGATIVE) 05/02/17 21:12 Urine Blood Moderate (NEGATIVE) 05/02/17 21:12 Urine Nitrate Negative (NEGATIVE) 05/02/17 21:12 Urine Bilirubin Negative (NEGATIVE) 05/02/17 21:12 Urine Urobilinogen 4.0 mg/dL (0.2-1.0) 05/02/17 21:12 Ur Leukocyte Esterase Neg Rojas/uL (Negative) 05/02/17 21:12 Urine RBC (Auto) 15 /hpf (0-3) H 05/02/17 21:12 Urine Microscopic WBC 1 /hpf (0-5) 05/02/17 21:12 Ur Squamous Epith Cells 2 /hpf (0-5) 05/02/17 21:12 Fluid Source Pleural 05/05/17 14:25 Fluid Appearance Cloudy (CLEAR) 05/05/17 14:25 Fluid pH 8.0 05/05/17 16:30 Fluid WBC 6560.0 /mm3 (0.0-300.0) H 05/05/17 14:25 Fluid RBC 400.0 /mm3 (0.0-0.0) H 05/05/17 14:25 Fluid Tot Cell Count 100 (0-0) H 05/05/17 14:25 Fluid Neutrophils 99.0 % (0-0) H 05/05/17 14:25 Fluid Lymphocytes 1.0 % (0-0) H 05/05/17 14:25 Fld Monocyte/Macrophag 0 % (0-0) 05/05/17 14:25 Fluid Total Protein 5.2 g/dL (NONE ESTABLISHED) 05/05/17 16:30 Fluid Albumin 2.2 g/dL 05/03/17 16:30 Fluid Comment N/a 05/05/17 14:25 Vancomycin Trough 10.6 ug/mL (5.0-10.0) H 05/15/17 06:00 Random Vancomycin 11.4 ug/mL 05/12/17 20:04 LISSY Screen Negative (Negative) 05/05/17 08:23 LISSY Titer TEST NOT PERFORMED 05/05/17 08:23 LISSY Titer 2 TEST NOT PERFORMED 05/05/17 08:23 LISSY Pattern TEST NOT PERFORMED 05/05/17 08:23 LISSY Pattern 2 TEST NOT PERFORMED 05/05/17 08:23 Proteinase 3 (PR3) <1.0 AI (<1.0) 05/05/17 08:23 Myeloperoxidase Ab <1.0 AI (<1.0) 05/05/17 08:23 HIV-1 Ab Rapid Screen Non reactive (NON REAC) 05/02/17 14:38 Influenza Typ A,B (EIA) Negative for flu a/b (NEGATIVE) 05/02/17 13:05 Ur L.pneumophila Ag Negative (NEGATIVE) 05/05/17 05:00 Mycoplasma pneumon IgG >5.00 (<=0.90) H 05/05/17 16:53 Mycoplasma pneumon IgM 538 U/mL (<770) 05/05/17 16:53 TB Test (QFT) Nil 0.07 IU/mL 05/02/17 14:41 TB Test Mitogen - Nil 1.61 IU/mL 05/02/17 14:41 TB Test TB - Nil <0.00 IU/mL 05/02/17 14:41 TB Test (QFT) Negative (Negative) 05/02/17 14:41 - Hospital Course Hospital Course: 36 yo male with history of Depression came in with left sided chest pain associated with cough productive with green sputum. CXR showed left pleural effusion. Patient was febrile, tachycardic with leukocytosis. He was admitted with Sepsis secondary to Pneumonia and Large Pleural Effusion. He was started on IV Vanco and Zosyn but WBC continued to trend up. Zosyn was switched to Meropenem. CT of the chest showed large loculated left pleural effusion. Patient initially refused chest tube but later on relented and had tube inserted on 05/09/17. Repeat CT showed minimal improvement as minimal output was noted from the chest tube. Dr Lara, cardiothoracic surgeon, was consulted and advised open thoracotomy, decortication and pleural biopsy but patient refused. He was informed that his condition would not improved in spite of antibiotics if the pleural effusion is not removed surgically, but he was steadfast in his decision. Patient was discharged in stable condition with the advised to continue taking Clindamycin and Augmentin for 28 days. Advised to follow up in [facility] in a week. Discharge Exam - Head Exam Head Exam: ATRAUMATIC, NORMOCEPHALIC - Eye Exam Eye Exam: absent: Scleral icterus - ENT Exam ENT Exam: Mucous Membranes Moist - Respiratory Exam Respiratory Exam: Decreased Breath Sounds. absent: Rhonchi, Wheezes, Respiratory Distress, Stridor - Cardiovascular Exam Cardiovascular Exam: REGULAR RHYTHM, +S1, +S2 - GI/Abdominal Exam GI & Abdominal Exam: Soft. absent: Tenderness - Rectal Exam Rectal Exam: Deferred - Neurological Exam Neurological exam: Alert, Oriented x3 - Psychiatric Exam Psychiatric exam: Normal Affect - Skin Skin Exam: Dry, Intact Discharge Plan - Discharge Medications Prescriptions: Amoxicillin/Clavulanate [Augmentin 875 MG-125 MG] 1 tab PO BID #56 tab Clindamycin [Cleocin] 300 mg PO TID #84 cap - Follow Up Plan Condition: GUARDED Disposition: HOME/ ROUTINE Instructions: Pneumonia, Adult (DC), Pleural Effusion (DC) Additional Instructions: follow up at [facility], [place], operated by [facility]- Appt fridayMay [address] Lara; arrive 1/2 hour early to register Referrals: [facility] [Outside] Lyla Venegas MD [Medical Doctor] - Elmer Joseph MD [Staff Provider] -
[2017-05-20 16:53] VITALS: BP 100/59; RESP 20; O2SAT 96
--- NOTE | 2017-05-21 13:32 | US ---
PROCEDURE: Date of procedure: 05/14/2017 Procedure: 1. Exchange of left chest tube. Medications: 8cc 1 percent lidocaine, IV sedation administered by the anesthesiologist. HISTORY: Large loculated left pleural effusion TECHNIQUE: Following informed consent and procedure time-out, the patient's left anterior chest was marked, prepped and draped in the usual sterile fashion. Fluoroscopic image showed the existing left pleural drainage catheter. The existing pleural drainage catheter was removed over guidewire up size for a new Italian pleural drainage catheter. The catheter was secured to patient's skin. A xeroform dressing was applied. The catheter was then attached to a pleurovac. Postprocedure x-ray showed a left chest tube. IMPRESSION: Exchange of existing left pleural drainage catheter for a larger 10 Italian pleural drainage catheter within the left pleural space.
== END 2017-05-20 18:00 | disposition home or self-care (01) | DRG 584 ==
LOC: H.ER 11:43 → H.ERHOLD 13:19 → H.TEL 22:17 → H.MEDSURG1 05-08 18:40
PROC: 0W9B3ZZ Drainage of Left Pleural Cavity, Percutaneous Approach (ICD-10-PCS; principal; 2017-05-03)
PROC: 0W9B30Z Drainage of Left Pleural Cavity with Drainage Device, Percutaneous Approach (ICD-10-PCS; 2017-05-09)
PROC: 0W28X0Z Change Drainage Device in Chest Wall, External Approach (ICD-10-PCS; 2017-05-14)
DX: A41.9 Sepsis, unspecified organism (principal); J15.9 Unspecified bacterial pneumonia; J86.9 Pyothorax without fistula; J91.8 Pleural effusion in other conditions classified elsewhere; J98.11 Atelectasis; Z59.0 Homelessness; F17.210 Nicotine dependence, cigarettes, uncomplicated; F43.23 Adjustment disorder with mixed anxiety and depressed mood; B85.2 Pediculosis, unspecified; I31.3 Pericardial effusion (noninflammatory); Z53.20 Procedure and treatment not carried out because of patient's decision for unspecified reasons